=== PATIENT | female | born 1995 | race Caucasian/White ===

== ENCOUNTER 2024-02-23 14:57 | Emergency (ER) | payer OTHER ==
[2024-02-23 15:15] VITALS: TEMP 98.7
[2024-02-23] MEDS: ONDANSETRON 4 MG/2 ML VIAL IVP STA (16:20)
[2024-02-23] MEDS: PANTOPRAZOLE 40 MG/10 ML VIAL IVP STA (16:21)
[2024-02-23] MEDS: LORazepam 2 MG/ML INJ IV STA (16:21)
[2024-02-23] MEDS: SODIUM CHLORIDE 0.9% 1,000 ML IV STA (16:22)
[2024-02-23 16:28] LABS: Basophils # (A) 0.1 k/uL (0-0.2); Basophils % (A) 1 %; Eosinophils # (A) 0.1 k/uL (0-0.7); Eosinophils % (A) 2 %; Lymphocytes # (A) 1.9 k/uL (1.0-4.8); Lymphocytes % (A) 23 %; MCH 29.6 pg (25.0-35.0); MCHC 34.2 g/dL (31.0-37.0); MCV 86.5 fL (80.0-100.0); Mean Platelet Volume 7.2; Monocytes # (A) 0.4 k/uL (0-1.0); Monocytes % (A) 5 %; Neutrophils # (A) 5.6 k/uL (1.3-7.7); Neutrophils % (A) 68 %; Platelet Count 294 k/uL (150-450); RBC 4.74 m/uL (3.80-5.40); WBC 8.1 k/uL (3.8-10.6)
[2024-02-23 16:32] LABS: ALT 19 U/L (4-34); AST 22 U/L (14-36); African American GFR (CKD) >90 (>60 ml/min/1.73 sqM); Albumin 4.2 g/dL (3.5-5.0); Alkaline Phosphatase 61 U/L (38-126); Amylase 60 U/L (30-110); Anion Gap 7 mmol/L; Blood Urea Nitrogen 13 mg/dL (7-17); Calcium 9.2 mg/dL (8.4-10.2); Carbon Dioxide 26 mmol/L (22-30); Chloride 105 mmol/L (98-107); Glucose 98 mg/dL (74-99); Lipase 85 U/L (23-300); Non-African American GFR(CKD) >90 (>60 ml/min/1.73 sqM); Sodium 138 mmol/L (137-145); Total Bilirubin 0.5 mg/dL (0.2-1.3); Total Protein 7.1 g/dL (6.3-8.2)
[2024-02-23 16:43] LABS: INR 0.9 (<1.2); Partial Thromboplastin Time 25.9 sec (22.0-30.0); Prothrombin Time 10.1 sec (10.0-12.5)
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
--- NOTE | 2024-02-23 17:04 | US ---
EXAMINATION TYPE: US abd limited kidneys/bladder DATE OF EXAM: 02/23/2024 COMPARISON: NONE CLINICAL INDICATION: Female, 29 years old with history of abd discomfort, dysuria; abd pain ongoing f or 1 week TECHNIQUE: Grayscale and color Doppler imaging of the right upper quadrant including the kidneys and urinary bladder. FINDINGS: EXAM MEASUREMENTS: Liver Length: 16.4 cm Gallbladder Wall: 0.2 cm CBD: 0.5 cm Right Kidney: 9.3 x 3.9 x 3.6 cm Left Kidney: 8.5 x 3.8 x 4.4 cm Pancreas: portion seen appear wnl Liver: too much bowel gas subcostally, only intercostal imaging . Liver evaluation is limited Gallbladder: wnl CBD: wnl Right Kidney: wnl Left Kidney: limited views due to bowel gas Bladder: voided just prior to exam IMPRESSION: No acute ultrasound abnormalities identified. Examination however is limited due to bowel gas and fac tors discussed above. [facility], Workstation: [facility], 02/23/2024 5:01 PM
[2024-02-23 17:07] LABS: Appearance,Urine Clear (Clear); Bilirubin,Urine Negative (Negative); Blood,Urine Negative (Negative); Color,Urine Colorless; Glucose,Urine (UA) Negative (Negative); Ketones,Urine Negative (Negative); Leukocyte Esterase,Urine Negative (Negative); Nitrite,Urine Negative (Negative); PH, Urine 7.5 (5.0-8.0); Protein,Urine Negative (Negative); Specific Gravity,Urine 1.011 (1.001-1.035); Urobilinogen,Urine <2.0 mg/dL (<2.0)
[2024-02-23] MEDS: MORPHINE SULFATE 4 MG/ML SYRINGE IVP STA ×3 (17:23→20:05)
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
[2024-02-23 19:58] VITALS: BP 113/81; PULSE 98; RESP 17
[2024-02-23] MEDS: ONDANSETRON 4 MG ODT STARTER PACK 2 TAB BTL PO STA (20:33)
[2024-02-23] MEDS: ACET/COD 300 MG/30 MG STARTER PACK 6 TAB BTL PO STA (20:33)
== END 2024-02-23 20:40 | disposition home or self-care (01) ==
LOC: EC 14:57
CPT/HCPCS: 36415; 74177; 76705; 76770; 80053; 81003; 81025; 82150; 83690; 85025; 85610; 85730; 96361; 96374; 96375; 96376; 99284

== ENCOUNTER 2024-02-28 17:44 | Emergency (ER) | payer OTHER ==
[2024-02-28 17:48] VITALS: TEMP 98.1
[2024-02-28 19:09] LABS: Basophils % (A) 0 %; Eosinophils # (A) 0.3 k/uL (0-0.7); Eosinophils % (A) 3 %; HCT 38.6 % (34.0-46.0); HGB 13.8 gm/dL (11.4-16.0); Lymphocytes # (A) 2.2 k/uL (1.0-4.8); Lymphocytes % (A) 24 %; MCH 31.1 pg (25.0-35.0); MCHC 35.8 g/dL (31.0-37.0); Monocytes # (A) 0.5 k/uL (0-1.0); Monocytes % (A) 6 %; Neutrophils # (A) 5.9 k/uL (1.3-7.7); Neutrophils % (A) 65 %; Platelet Count 280 k/uL (150-450); RBC 4.44 m/uL (3.80-5.40); RDW 12.1 % (11.5-15.5); WBC 9.1 k/uL (3.8-10.6)
[2024-02-28 19:20] LABS: INR 0.9 (<1.2); Partial Thromboplastin Time 26.7 sec (22.0-30.0); Prothrombin Time 10.4 sec (10.0-12.5)
[2024-02-28] MEDS: SODIUM CHLORIDE 0.9% 1,000 ML IV ONE ×2 (19:23→22:54)
[2024-02-28] MEDS: ONDANSETRON 4 MG/2 ML VIAL IVP STA (19:27)
--- NOTE | 2024-02-28 19:36 | XR ---
EXAMINATION TYPE: XR chest 2V DATE OF EXAM: 02/28/2024 7:13 PM COMPARISON: None CLINICAL INDICATION: Female, 29 years old with history of difficulty breathing; [facility] TECHNIQUE: XR chest 2V Frontal and lateral views of the chest. FINDINGS: Lungs/Pleura: There is no evidence of pleural effusion, focal consolidation, or pneumothorax. Pulmonary vascularity: Unremarkable. Heart/mediastinum: Cardiomediastinal silhouette is unremarkable. Musculoskeletal: No acute osseous pathology. IMPRESSION: No acute cardiopulmonary disease/process. [facility], , 02/28/2024 7:34 PM
[2024-02-28 20:04] LABS: ALT 22 U/L (4-34); AST 22 U/L (14-36); African American GFR (CKD) >90 (>60 ml/min/1.73 sqM); Alkaline Phosphatase 55 U/L (38-126); Amylase 49 U/L (30-110); Anion Gap 8 mmol/L; Blood Urea Nitrogen 10 mg/dL (7-17); Calcium 9.4 mg/dL (8.4-10.2); Carbon Dioxide 27 mmol/L (22-30); Chloride 101 mmol/L (98-107); Glucose 90 mg/dL (74-99); Lipase 55 U/L (23-300); Magnesium 1.7 mg/dL (1.6-2.3); Non-African American GFR(CKD) >90 (>60 ml/min/1.73 sqM); Potassium 3.7 mmol/L (3.5-5.1); Sodium 136 mmol/L (137-145); Total Bilirubin 0.5 mg/dL (0.2-1.3); Total Protein 6.8 g/dL (6.3-8.2)
[2024-02-28] MEDS: HYDROmorphone 0.5 MG/0.5 ML SYRINGE IVP STA (20:31)
--- NOTE | 2024-02-28 20:37 | ED ---
General Adult HPI - General Chief complaint: Nausea/Vomiting/Diarrhea Stated complaint: Re-check Time Seen by Provider: 02/28/24 17:53 Source: patient, RN notes reviewed Mode of arrival: ambulatory Limitations: no limitations - History of Present Illness Initial comments: 29-year-old female presents to the emergency department for evaluation of abdominal pain and shortness of breath. Patient reports that she has been experiencing abdominal pain for around 2 years with nausea and decreased appetite. She states that this started after receiving the COVID vaccination multiple years ago. Patient was evaluated in the emergency department recently for the same complaint and underwent a CT of her abdomen revealing a small ileus. Patient was offered admission at that time but she declined. She states that her symptoms have not improved. Patient is now complaining of shortness of breath that has been going on for 2 days. She reports that it is worse when she is lying down. She denies chest pain. Denies recent fever, chills. - Related Data Home Medications Medication Instructions Recorded Confirmed Dextroamphetamine/Amphetamine 30 mg PO BID 02/23/24 02/23/24 [Adderall] clonazePAM [KlonoPIN] 1 mg PO BID PRN 02/23/24 02/23/24 Previous Rx's Medication Instructions Recorded HYDROcodone/APAP 5-325MG [[place] 5] 1 each PO Q6HR PRN #12 tab 02/28/24 Allergies Allergy/AdvReac Type Severity Reaction Status Date / Time pantoprazole [From Protonix] Allergy Rash/Hives Verified 02/28/24 17:49 trazodone Allergy Unknown Verified 02/28/24 17:48 Review of Systems ROS Statement: Those systems with pertinent positive or pertinent negative responses have been documented in the HPI. ROS Other: All systems not noted in ROS Statement are negative. Past Medical History History of Any Multi-Drug Resistant Organisms: Other MDRO Date of last positivie culture/infection: 2023 MDRO Source:: kidney- E. Coli Past Surgical History: Tubal Ligation Additional Past Surgical History / Comment(s): left shoulder surgery in 2018 Past Psychological History: ADD/ADHD, Anxiety Smoking Status: Vaper Past Alcohol Use History: None Reported Past Drug Use History: None Reported General Exam Limitations: no limitations General appearance: alert, in no apparent distress Head exam: Present: atraumatic, normocephalic, normal inspection Eye exam: Present: normal appearance, PERRL, EOMI. Absent: scleral icterus, conjunctival injection, periorbital swelling ENT exam: Present: normal exam, mucous membranes moist Neck exam: Present: normal inspection. Absent: tenderness, meningismus, lymphadenopathy Respiratory exam: Present: normal lung sounds bilaterally. Absent: respiratory distress, wheezes, rales, rhonchi, stridor Cardiovascular Exam: Present: regular rate, normal rhythm, normal heart sounds. Absent: systolic murmur, diastolic murmur, rubs, gallop, clicks GI/Abdominal exam: Present: soft, normal bowel sounds. Absent: distended, tenderness, guarding, rebound, rigid Extremities exam: Present: normal inspection, full ROM, normal capillary refill. Absent: tenderness, pedal edema, joint swelling, calf tenderness Back exam: Present: normal inspection Neurological exam: Present: alert, oriented X3 Psychiatric exam: Present: normal affect, normal mood Skin exam: Present: warm, dry, intact, normal color. Absent: rash Course Vital Signs 02/28/24 02/28/24 02/28/24 17:45 19:20 23:31 Temperature 98.1 F Pulse Rate 135 H 96 84 Respiratory 16 18 18 Rate Blood Pressure 123/82 119/88 114/73 O2 Sat by Pulse 100 100 100 Oximetry Medical Decision Making - Medical Decision Making Was pt. sent in by a medical professional or institution ([facility] Frances, [employer]/FI[employer]MAN, urgent care, hospital, or retirement...) When possible be specific @ -No Did you speak to anyone other than the patient for history (EMS, parent, family, police, friend...)? What history was obtained from this source @ -Patient's boyfriend provided family history Did you review nursing and triage notes (agree or disagree)? Why? @ -I reviewed and agree with nursing and triage notes Were old charts reviewed (outside hosp., previous admission, EMS record, old EKG, old radiological studies, urgent care reports/EKG's, retirement records)? Report findings @ -No old charts were reviewed Differential Diagnosis (chest pain, altered mental status, abdominal pain women, abdominal pain men, vaginal bleeding, weakness, fever, dyspnea, syncope, headache, dizziness, GI bleed, back pain, seizure, CVA, palpatations, mental health, musculoskeletal)? @ -Differential Dyspnea: Coronary syndrome, arrhythmia, tamponade, asthma, COPD, pulmonary embolism, pneumonia, pneumothorax, pulmonary effusion, anaphylaxis, diabetic ketoacidosis, flailed chest, pulmonary contusion, diaphragmatic rupture, anemia, neuromuscular, this is not meant to be an all-inclusive list. EKG interpreted by me (3pts min.). @ -EKG at 1904 shows sinus rhythm rate 99, MD 148, QRS 97, QT-QTc 330-387 X-rays interpreted by me (1pt min.). @ -Chest x-ray shows no acute process KUB shows nonspecific bowel gas pattern CT interpreted by me (1pt min.). @ -None done U/S interpreted by me (1pt. min.). @ -None done What testing was considered but not performed or refused? (CT, X-rays, U/S, labs)? Why? @ -None What meds were considered but not given or refused? Why? @ -None Did you discuss the management of the patient with other professionals (professionals i.e. , PA, [employer] ENG[employer] FIRER/FIREMAN, lab, RT, psych nurse, rn social work, call center specialist, teacher, botanical technical officer, welfare case worker)? Give summary @ -No Was smoking cessation discussed for >3mins.? @ -No Was critical care preformed (if so, how long)? @ -No Were there social determinants of health that impacted care today? How? (Homelessness, low income, unemployed, alcoholism, drug addiction, transportation, low edu. Level, literacy, decrease access to med. care, senior living, rehab)? @ -No Was there de-escalation of care discussed even if they declined (Discuss DNR or withdrawal of care, Hospice)? DNR status @ -No What co-morbidities impacted this encounter? (DM, HTN, Smoking, COPD, CAD, Cancer, CVA, ARF, Chemo, Hep., AIDS, mental health diagnosis, sleep apnea, morbid obesity)? @ -None Was patient admitted / discharged? Hospital course, mention meds given and route, prescriptions, significant lab abnormalities, going to OR and other pertinent info. @ -Discharged. Patient presented to the emergency department for evaluation of abdominal pain and shortness of breath. Patient underwent laboratory studies revealingNo significant leukocytosis, hemoglobin stable, normal coagulation studies, negative D-dimer negative troponin; UA shows no evidence of infectious process, negative urine hCG urine drug screen positive for opiates and amphetamines. Patient was provided IV fluids in the emergency department along with analgesia and antiemetics. Patient reports improvement in her symptoms. Patient will be discharged home. Advised to follow-up with a local primary care provider as she is new to the area she was provided with a list. Patient understanding agreeable with plan. Patient stable at time of discharge. Case discussed with Dr. Caro Undiagnosed new problem with uncertain prognosis? @ -No Drug Therapy requiring intensive monitoring for toxicity (Heparin, Nitro, Insulin, Cardizem)? @ -No Were any procedures done? @ -No Diagnosis/symptom? @ -Abdominal pain Acute, or Chronic, or Acute on Chronic? @ -chronic Uncomplicated (without systemic symptoms) or Complicated (systemic symptoms)? @ -uncomplicated Side effects of treatment? @ -No Exacerbation, Progression, or Severe Exacerbation? @ -No Poses a threat to life or bodily function? How? (Chest pain, USA, DE, pneumonia, PE, COPD, DKA, ARF, appy, cholecystitis, CVA, Diverticulitis, Homicidal, Suicidal, threat to staff... and all critical care pts) @ -No - Lab Data Result diagrams: 02/28/24 19:02 02/28/24 19:02 Lab Results 02/28/24 02/28/24 02/28/24 Range/Units 19:02 19:02 19:02 WBC 9.1 (3.8-10.6) k/uL RBC 4.44 (3.80-5.40) m/uL Hgb 13.8 (11.4-16.0) gm/dL Hct 38.6 (34.0-46.0) % MCV 87.0 (80.0-100.0) fL MCH 31.1 (25.0-35.0) pg MCHC 35.8 (31.0-37.0) g/dL RDW 12.1 (11.5-15.5) % Plt Count 280 (150-450) k/uL MPV 7.0 Neutrophils % 65 % Lymphocytes % 24 % Monocytes % 6 % Eosinophils % 3 % Basophils % 0 % Neutrophils # 5.9 (1.3-7.7) k/uL Lymphocytes # 2.2 (1.0-4.8) k/uL Monocytes # 0.5 (0-1.0) k/uL Eosinophils # 0.3 (0-0.7) k/uL Basophils # 0.0 (0-0.2) k/uL PT 10.4 (10.0-12.5) sec INR 0.9 (<1.2) APTT 26.7 (22.0-30.0) sec D-Dimer (<0.60) mg/L FEU Sodium 136 L (137-145) mmol/L Potassium 3.7 (3.5-5.1) mmol/L Chloride 101 (98-107) mmol/L Carbon Dioxide 27 (22-30) mmol/L Anion Gap 8 mmol/L BUN 10 (7-17) mg/dL Creatinine 0.78 (0.52-1.04) mg/dL Est GFR (CKD-EPI)AfAm >90 (>60 ml/min/1.73 sqM) Est GFR (CKD-EPI)NonAf >90 (>60 ml/min/1.73 sqM) Glucose 90 (74-99) mg/dL Plasma Lactic Acid Uri (0.7-2.0) mmol/L Calcium 9.4 (8.4-10.2) mg/dL Magnesium 1.7 (1.6-2.3) mg/dL Total Bilirubin 0.5 (0.2-1.3) mg/dL AST 22 (14-36) U/L ALT 22 (4-34) U/L Alkaline Phosphatase 55 (38-126) U/L Troponin I (0.000-0.034) ng/mL Total Protein 6.8 (6.3-8.2) g/dL Albumin 4.0 (3.5-5.0) g/dL Amylase 49 (30-110) U/L Lipase 55 (23-300) U/L Urine Color Urine Appearance (Clear) Urine pH (5.0-8.0) Ur Specific Wilson (1.001-1.035) Urine Protein (Negative) Urine Glucose (UA) (Negative) Urine Ketones (Negative) Urine Blood (Negative) Urine Nitrite (Negative) Urine Bilirubin (Negative) Urine Urobilinogen (<2.0) mg/dL Ur Leukocyte Esterase (Negative) Urine RBC (0-5) /hpf Urine WBC (0-5) /hpf Ur Squamous Epith Cells (0-4) /hpf Amorphous Sediment (None) /hpf Urine Bacteria (None) /hpf Urine Mucus (None) /hpf Urine Yeast (Budding) (None) /hpf Urine HCG, Qual (Not Detectd) Urine Opiates Screen (NotDetected) Ur Oxycodone Screen (NotDetected) Urine Methadone Screen (NotDetected) Ur Barbiturates Screen (NotDetected) U Tricyclic Antidepress (NotDetected) Ur Phencyclidine Scrn (NotDetected) Ur Amphetamines Screen (NotDetected) U Methamphetamines Scrn (NotDetected) U Benzodiazepines Scrn (NotDetected) Urine Cocaine Screen (NotDetected) U Marijuana (THC) Screen (NotDetected) 02/28/24 02/28/24 02/28/24 Range/Units 19:02 19:02 20:37 WBC (3.8-10.6) k/uL RBC (3.80-5.40) m/uL Hgb (11.4-16.0) gm/dL Hct (34.0-46.0) % MCV (80.0-100.0) fL MCH (25.0-35.0) pg MCHC (31.0-37.0) g/dL RDW (11.5-15.5) % Plt Count (150-450) k/uL MPV Neutrophils % % Lymphocytes % % Monocytes % % Eosinophils % % Basophils % % Neutrophils # (1.3-7.7) k/uL Lymphocytes # (1.0-4.8) k/uL Monocytes # (0-1.0) k/uL Eosinophils # (0-0.7) k/uL Basophils # (0-0.2) k/uL PT (10.0-12.5) sec INR (<1.2) APTT (22.0-30.0) sec D-Dimer (<0.60) mg/L FEU Sodium (137-145) mmol/L Potassium (3.5-5.1) mmol/L Chloride (98-107) mmol/L Carbon Dioxide (22-30) mmol/L Anion Gap mmol/L BUN (7-17) mg/dL Creatinine (0.52-1.04) mg/dL Est GFR (CKD-EPI)AfAm (>60 ml/min/1.73 sqM) Est GFR (CKD-EPI)NonAf (>60 ml/min/1.73 sqM) Glucose (74-99) mg/dL Plasma Lactic Acid Uri 1.0 (0.7-2.0) mmol/L Calcium (8.4-10.2) mg/dL Magnesium (1.6-2.3) mg/dL Total Bilirubin (0.2-1.3) mg/dL AST (14-36) U/L ALT (4-34) U/L Alkaline Phosphatase (38-126) U/L Troponin I <0.012 (0.000-0.034) ng/mL Total Protein (6.3-8.2) g/dL Albumin (3.5-5.0) g/dL Amylase (30-110) U/L Lipase (23-300) U/L Urine Color Colorless Urine Appearance Turbid H (Clear) Urine pH 7.0 (5.0-8.0) Ur Specific Wilson 1.010 (1.001-1.035) Urine Protein Negative (Negative) Urine Glucose (UA) Negative (Negative) Urine Ketones Negative (Negative) Urine Blood Negative (Negative) Urine Nitrite Negative (Negative) Urine Bilirubin Negative (Negative) Urine Urobilinogen <2.0 (<2.0) mg/dL Ur Leukocyte Esterase Negative (Negative) Urine RBC 1 (0-5) /hpf Urine WBC <1 (0-5) /hpf Ur Squamous Epith Cells 1 (0-4) /hpf Amorphous Sediment Rare H (None) /hpf Urine Bacteria Rare H (None) /hpf Urine Mucus Rare H (None) /hpf Urine Yeast (Budding) Many H (None) /hpf Urine HCG, Qual (Not Detectd) Urine Opiates Screen (NotDetected) Ur Oxycodone Screen (NotDetected) Urine Methadone Screen (NotDetected) Ur Barbiturates Screen (NotDetected) U Tricyclic Antidepress (NotDetected) Ur Phencyclidine Scrn (NotDetected) Ur Amphetamines Screen (NotDetected) U Methamphetamines Scrn (NotDetected) U Benzodiazepines Scrn (NotDetected) Urine Cocaine Screen (NotDetected) U Marijuana (THC) Screen (NotDetected) 02/28/24 02/28/2424 Range/Units 20:37 20:37 20:42 WBC (3.8-10.6) k/uL RBC (3.80-5.40) m/uL Hgb (11.4-16.0) gm/dL Hct (34.0-46.0) % MCV (80.0-100.0) fL MCH (25.0-35.0) pg MCHC (31.0-37.0) g/dL RDW (11.5-15.5) % Plt Count (150-450) k/uL MPV Neutrophils % % Lymphocytes % % Monocytes % % Eosinophils % % Basophils % % Neutrophils # (1.3-7.7) k/uL Lymphocytes # (1.0-4.8) k/uL Monocytes # (0-1.0) k/uL Eosinophils # (0-0.7) k/uL Basophils # (0-0.2) k/uL PT (10.0-12.5) sec INR (<1.2) APTT (22.0-30.0) sec D-Dimer <0.17 (<0.60) mg/L FEU Sodium (137-145) mmol/L Potassium (3.5-5.1) mmol/L Chloride (98-107) mmol/L Carbon Dioxide (22-30) mmol/L Anion Gap mmol/L BUN (7-17) mg/dL Creatinine (0.52-1.04) mg/dL Est GFR (CKD-EPI)AfAm (>60 ml/min/1.73 sqM) Est GFR (CKD-EPI)NonAf (>60 ml/min/1.73 sqM) Glucose (74-99) mg/dL Plasma Lactic Acid Uri (0.7-2.0) mmol/L Calcium (8.4-10.2) mg/dL Magnesium (1.6-2.3) mg/dL Total Bilirubin (0.2-1.3) mg/dL AST (14-36) U/L ALT (4-34) U/L Alkaline Phosphatase (38-126) U/L Troponin I (0.000-0.034) ng/mL Total Protein (6.3-8.2) g/dL Albumin (3.5-5.0) g/dL Amylase (30-110) U/L Lipase (23-300) U/L Urine Color Urine Appearance (Clear) Urine pH (5.0-8.0) Ur Specific Wilson (1.001-1.035) Urine Protein (Negative) Urine Glucose (UA) (Negative) Urine Ketones (Negative) Urine Blood (Negative) Urine Nitrite (Negative) Urine Bilirubin (Negative) Urine Urobilinogen (<2.0) mg/dL Ur Leukocyte Esterase (Negative) Urine RBC (0-5) /hpf Urine WBC (0-5) /hpf Ur Squamous Epith Cells (0-4) /hpf Amorphous Sediment (None) /hpf Urine Bacteria (None) /hpf Urine Mucus (None) /hpf Urine Yeast (Budding) (None) /hpf Urine HCG, Qual Not Detected (Not Detectd) Urine Opiates Screen Detected H (NotDetected) Ur Oxycodone Screen Not Detected (NotDetected) Urine Methadone Screen Not Detected (NotDetected) Ur Barbiturates Screen Not Detected (NotDetected) U Tricyclic Antidepress Not Detected (NotDetected) Ur Phencyclidine Scrn Not Detected (NotDetected) Ur Amphetamines Screen Detected H (NotDetected) U Methamphetamines Scrn Not Detected (NotDetected) U Benzodiazepines Scrn Not Detected (NotDetected) Urine Cocaine Screen Not Detected (NotDetected) U Marijuana (THC) Screen Not Detected (NotDetected) Disposition Clinical Impression: Abdominal pain of unknown etiology Disposition: HOME SELF-CARE Condition: Stable Additional Instructions: Please follow-up with an area primary care provider. Return to the emergency department for new or worsening symptoms. Prescriptions: HYDROcodone/APAP 5-325MG [[place] 5] 1 each PO Q6HR PRN #12 tab PRN Reason: Pain Is patient prescribed a controlled substance at d/c from ED?: Yes When asked, does pt state using other controlled substances?: No If prescribed controlled substance>3 days was MAPS reviewed?: Prescribed <3 Days Referrals: None,Stated [Primary Care Provider] - 1-2 days
[2024-02-28 20:48] VITALS: RESP 18
[2024-02-28 21:22] LABS: Amorphous Sediment,Urine Rare /hpf; Appearance,Urine Turbid (Clear); Bacteria,Urine Rare /hpf; Bilirubin,Urine Negative (Negative); Blood,Urine Negative (Negative); Budding Yeast,Urine Many /hpf; Color,Urine Colorless; Glucose,Urine (UA) Negative (Negative); Ketones,Urine Negative (Negative); Leukocyte Esterase,Urine Negative (Negative); Mucus,Urine Rare /hpf; Nitrite,Urine Negative (Negative); Protein,Urine Negative (Negative); RBC,Urine 1 /hpf (0-5); Squamous Epithelial Cell,Urine 1 /hpf (0-4); Urobilinogen,Urine <2.0 mg/dL (<2.0); WBC,Urine <1 /hpf (0-5)
[2024-02-28 21:26] LABS: Amphetamine Screen,Urine Detected (NotDetected); Barbiturate Screen,Urine Not Detected (NotDetected); Benzodiazepines Screen,Urine Not Detected (NotDetected); Cocaine Screen,Urine Not Detected (NotDetected); Methadone Screen, Urine Not Detected (NotDetected); Opiate Screen,Urine Detected (NotDetected); Oxycodone Screen, Urine Not Detected (NotDetected); Phencyclidine Screen,Urine Not Detected (NotDetected); Tricyclic Antidepressant,Urine Not Detected (NotDetected); Urn Cannabinoid Scrn Not Detected (NotDetected)
--- NOTE | 2024-02-28 21:58 | XR ---
EXAMINATION TYPE: XR KUB DATE OF EXAM: 02/28/2024 9:47 PM COMPARISON: CLINICAL INDICATION: Female, 29 years old with history of pain; [facility] TECHNIQUE: One radiographic view of the abdomen was obtained. FINDINGS: The bowel gas pattern is nonspecific without dilated loops of small or large bowel. . Fecal material and gas are demonstrated throughout the colon and rectum. There is no evidence for organomegaly or pneumoperitoneum. The osseous structures are intact. No ab normal calcifications are present. IMPRESSION: Nonspecific bowel gas pattern without radiographic evidence for acute process. [facility], , 02/28/2024 9:56 PM
[2024-02-28] MEDS: HYDROmorphone 1 MG/ML 1 ML SYRINGE IVP STA (22:54)
[2024-02-28 23:32] VITALS: BP 114/73; PULSE 84
== END 2024-02-28 23:32 | disposition home or self-care (01) ==
LOC: EC 17:44
DX: R10.9 Unspecified abdominal pain (principal); F17.290 Nicotine dependence, other tobacco product, uncomplicated; Z88.8 Allergy status to other drugs, medicaments and biological substances
CPT/HCPCS: 36415; 93005; 85379; 80053; 82150; 83605; 83690; 83735; 84484; 85025; 85610; 85730; 81001; 81025; 80306; 71046; 74018; 99285; 96374; 96375; 96376; 96361; J2405; J1171 ×2; 99284

== ENCOUNTER 2024-03-06 07:24 | Emergency (ER) | payer OTHER ==
[2024-03-06 07:59] VITALS: RESP 20; TEMP 98.5
--- NOTE | 2024-03-06 08:23 | ED ---
General Adult HPI - General Chief complaint: Recheck/Abnormal Lab/Rx Stated complaint: chest pain Time Seen by Provider: 03/06/24 08:22 Source: patient, RN notes reviewed Mode of arrival: ambulatory Limitations: no limitations - History of Present Illness Initial comments: 29-year-old female presenting to the ER with a chief complaint of abdominal pain. Patient recently moved here from [place] as she is disabled and needed more family support. She is currently living with a family friend. She is diagnosed with autonomic dysfunction. She states for the past 2 years she has been having a continuous left sided abdominal pain. She states for the past 4 weeks she has been having difficulty eating as it increases pain. This is caused her to have a decreased appetite. She is able to keep food down. She does state the pain makes her feel nauseous. She denies vomiting. She states she has diarrhea and bright red blood in her stool. No melena. No known fevers. Patient seen here recently for similar complaint patient was offered admission due to possible ileus patient refused. Patient has not yet followed up outpatient. She has been taking [place] for pain last dose yesterday. Patient is also complaining of a pressure chest discomfort. She states the pain makes it difficult for her to breathe. She radiation to her left upper extremity. No cardiac history. No history of blood clots. No blood thinner medication. Patient denies any other complaints. - Related Data Home Medications Medication Instructions Recorded Confirmed Dextroamphetamine/Amphetamine 30 mg PO BID 02/23/24 03/06/24 [Adderall] clonazePAM [KlonoPIN] 1 mg PO BID PRN 02/23/24 03/06/24 Fludrocortisone [Florinef] 0.1 mg PO DAILY 03/06/24 03/06/24 Gabapentin 600 mg PO BID 03/06/24 03/06/24 HYDROcodone/APAP 5-325MG [[place] 5] 1 tab PO Q6HR PRN 03/06/24 03/06/24 Levonorgestrel/Ethinyl Estradiol 1 tab PO DAILY 03/06/24 03/06/24 0.15mg-30mcg Ziprasidone [Geodon] 40 mg PO BID 03/06/24 03/06/24 lamoTRIgine 150 mg PO HS 03/06/24 03/06/24 Allergies Allergy/AdvReac Type Severity Reaction Status Date / Time pantoprazole [From Protonix] Allergy Rash/Hives Verified 03/06/24 11:01 trazodone Allergy Rash/Hives Verified 03/06/24 11:01 Review of Systems ROS Statement: Those systems with pertinent positive or pertinent negative responses have been documented in the HPI. ROS Other: All systems not noted in ROS Statement are negative. Past Medical History Past Medical History: Rheumatoid Arthritis (RA) Additional Past Medical History / Comment(s): Autonomic dysfunction. Lopez, History of Any Multi-Drug Resistant Organisms: Other MDRO Date of last positivie culture/infection: 2023 MDRO Source:: kidney- E. Coli Past Surgical History: Tubal Ligation Additional Past Surgical History / Comment(s): left shoulder surgery in 2018 Past Psychological History: ADD/ADHD, Anxiety, Bipolar Smoking Status: Vaper Past Alcohol Use History: None Reported Past Drug Use History: None Reported General Exam Limitations: no limitations General appearance: alert, in no apparent distress Respiratory exam: Present: normal lung sounds bilaterally. Absent: respiratory distress, wheezes, rales, rhonchi, stridor Cardiovascular Exam: Present: regular rate, normal rhythm, normal heart sounds. Absent: systolic murmur, diastolic murmur, rubs, gallop, clicks GI/Abdominal exam: Present: soft, tenderness (generalized), normal bowel sounds. Absent: distended, guarding, rebound, rigid Neurological exam: Present: alert, oriented X3, CN II-XII intact Skin exam: Present: warm, dry, intact, normal color. Absent: rash Course Vital Signs 03/06/24 03/06/24 03/06/24 07:56 08:21 10:00 Temperature 98.5 F Pulse Rate 122 H 120 H 105 H Respiratory 20 20 20 Rate Blood Pressure 113/81 121/86 112/75 O2 Sat by Pulse 99 100 98 Oximetry 03/06/24 03/06/24 11:00 12:23 Temperature Pulse Rate 105 H 90 Respiratory 20 20 Rate Blood Pressure 107/71 130/60 O2 Sat by Pulse 98 98 Oximetry - Reevaluation(s) Reevaluation #1: 03/06/24 10:08 Patient reevaluated. No signs of acute distress. Vital stable. Patient up dated on laboratory results Medical Decision Making - Medical Decision Making Was pt. sent in by a medical professional or institution (Dr., PA, HEAD OF MARKETING, urgent care, hospital, or [facility]...) When possible be specific @ -No Did you speak to anyone other than the patient for history (EMS, parent, family, police, friend...)? What history was obtained from this source @ -No Did you review nursing and triage notes (agree or disagree)? Why? @ -I reviewed and agree with nursing and triage notes Were old charts reviewed (outside hosp., previous admission, EMS record, old EKG, old radiological studies, urgent care reports/EKG's, [facility] records)? Report findings @ -Yes, I reviewed ER note, laboratory studies and imaging from 02-23-24 and 02-28-24. Patient seen for similar complaint workup obtained and negative. Differential Diagnosis (chest pain, altered mental status, abdominal pain women, abdominal pain men, vaginal bleeding, weakness, fever, dyspnea, syncope, headache, dizziness, GI bleed, back pain, seizure, CVA, palpatations, mental health, musculoskeletal)? @ -Differential Abdominal Pain Women:Appendicitis, Cholecystitis, diverticulosis, ischemic bowel, pancreatitis, hepatitis, UTI, gastroenteritis, AAA, incarcerated hernia, bowel obstruction, constipation, inflammatory bowel, hepatitis, peptic ulcer disease, splenic infarction, perforated viscus, vulvitis, ovarian torsion, PID, kidney stone, placenta abruption, this is not meant to be an all-inclusive list EKG interpreted by me (3pts min.). @ -As above X-rays interpreted by me (1pt min.). @ -None done CT interpreted by me (1pt min.). @ -CT abdomen pelvis showing a small amount of free fluid in the cul-de-sac and pelvis. No other significant abnormality. U/S interpreted by me (1pt. min.). @ -None done What testing was considered but not performed or refused? (CT, X-rays, U/S, labs)? Why? @ -None What meds were considered but not given or refused? Why? @ -None Did you discuss the management of the patient with other professionals (professionals i.e. NIKKI Frances, HEAD OF MARKETING, lab, RT, psych nurse, delinquency prevention social worker, hospital admissions officer, teacher, correctional officer lieutenant, oil field caser)? Give summary @ -No Was smoking cessation discussed for >3mins.? @ -No Was critical care preformed (if so, how long)? @ -No Were there social determinants of health that impacted care today? How? (Homelessness, low income, unemployed, alcoholism, drug addiction, transportation, low edu. Level, literacy, decrease access to med. care, long term, rehab)? @ -Patient recently moved here from [place] and has not established primary care. Was there de-escalation of care discussed even if they declined (Discuss DNR or withdrawal of care, Hospice)? DNR status @ -No What co-morbidities impacted this encounter? (DM, HTN, Smoking, COPD, CAD, Cancer, CVA, ARF, Chemo, Hep., AIDS, mental health diagnosis, sleep apnea, morbid obesity)? @ -Autonomic dysfunction, chronic abdominal pain Was patient admitted / discharged? Hospital course, mention meds given and route, prescriptions, significant lab abnormalities, going to OR and other pertinent info. @ -Discharge. 29-year-old female presenting to the ER with a chief complaint of abdominal pain x 2 years and chest discomfort. History and physical exam completed. Patient is tachycardic at 122 upon arrival which is likely due to anxiety and pain. Vitals otherwise stable. Patient in no signs of acute distress but is very anxious on exam. Exam remarkable for generalized abdominal tenderness with normal bowel sounds. No rebound or guarding. Laboratory studies obtained unremarkable. D-dimer 0.37, troponin undetectable. Urinalysis unremarkable. Due to patient complaining of continued pain CT abdomen pelvis was considered. Risk-benefit ratio of radiation discussed with patient as she had recent CT scan at 1029-24. Patient is agreeable for repeat scan. CT abdomen pelvis showing a small amount of free fluid in the cul-de-sac and pelvis. No other significant abnormality. Patient received symptomatic treatment in the ER, with mild improvement. Upon reevaluation, patient sitting up on stretcher listening to music on phone no signs of acute distress. Results discussed with patient, all questions answered. Patient stable for discharge at this time. Advised close follow-up with GI and general surgery for further ev aluation. I strongly encourage patient to establish care with PCP. Referrals given. Strict return parameters discussed. Patient discharged in stable condition with follow-up to PCP. Patient verbally expressed understanding and agreement with care plan. Case discussed with ED attending, Dr. Conn. Undiagnosed new problem with uncertain prognosis? @ -No Drug Therapy requiring intensive monitoring for toxicity (Heparin, Nitro, Insulin, Cardizem)? @ -No Were any procedures done? @ -No Diagnosis/symptom? @ -Abdominal pain Acute, or Chronic, or Acute on Chronic? @ -Acute Uncomplicated (without systemic symptoms) or Complicated (systemic symptoms)? @ -Uncomplicated Side effects of treatment? @ -No Exacerbation, Progression, or Severe Exacerbation? @ -No Poses a threat to life or bodily function? How? (Chest pain, [place], MA, pneumonia, PE, COPD, DKA, ARF, appy, cholecystitis, CVA, Diverticulitis, Homicidal, Suicidal, threat to staff... and all critical care pts) @ -No - Lab Data Result diagrams: 03/06/24 08:21 03/06/24 08:21 Lab Results 03/06/24 03/06/24 03/06/24 Range/Units 08:20 08:21 08:21 WBC 9.1 (3.8-10.6) k/uL RBC 4.50 (3.80-5.40) m/uL Hgb 13.3 (11.4-16.0) gm/dL Hct 39.8 (34.0-46.0) % MCV 88.4 (80.0-100.0) fL MCH 29.5 (25.0-35.0) pg MCHC 33.4 (31.0-37.0) g/dL RDW 12.4 (11.5-15.5) % Plt Count 304 (150-450) k/uL MPV 7.5 Neutrophils % 64 % Lymphocytes % 26 % Monocytes % 5 % Eosinophils % 4 % Basophils % 1 % Neutrophils # 5.8 (1.3-7.7) k/uL Lymphocytes # 2.3 (1.0-4.8) k/uL Monocytes # 0.5 (0-1.0) k/uL Eosinophils # 0.3 (0-0.7) k/uL Basophils # 0.1 (0-0.2) k/uL PT (10.0-12.5) sec INR (<1.2) APTT (22.0-30.0) sec D-Dimer (<0.60) mg/L FEU Sodium 137 (137-145) mmol/L Potassium 4.4 (3.5-5.1) mmol/L Chloride 104 (98-107) mmol/L Carbon Dioxide 25 (22-30) mmol/L Anion Gap 8 mmol/L BUN 17 (7-17) mg/dL Creatinine 0.99 (0.52-1.04) mg/dL Est GFR (CKD-EPI)AfAm 89 (>60 ml/min/1.73 sqM) Est GFR (CKD-EPI)NonAf 77 (>60 ml/min/1.73 sqM) Glucose 89 (74-99) mg/dL Plasma Lactic Acid Uri (0.7-2.0) mmol/L Calcium 9.3 (8.4-10.2) mg/dL Total Bilirubin 0.4 (0.2-1.3) mg/dL AST 23 (14-36) U/L ALT 21 (4-34) U/L Alkaline Phosphatase 48 (38-126) U/L Troponin I (0.000-0.034) ng/mL Total Protein 7.3 (6.3-8.2) g/dL Albumin 4.4 (3.5-5.0) g/dL Amylase 60 (30-110) U/L Lipase 102 (23-300) U/L HCG, Qual Not Detected Urine Color Urine Appearance (Clear) Urine pH (5.0-8.0) Ur Specific [place] (1.001-1.035) Urine Protein (Negative) Urine Glucose (UA) (Negative) Urine Ketones (Negative) Urine Blood (Negative) Urine Nitrite (Negative) Urine Bilirubin (Negative) Urine Urobilinogen (<2.0) mg/dL Ur Leukocyte Esterase (Negative) 03/06/24 03/06/24 03/06/24 Range/Units 08:21 08:21 08:21 WBC (3.8-10.6) k/uL RBC (3.80-5.40) m/uL Hgb (11.4-16.0) gm/dL Hct (34.0-46.0) % MCV (80.0-100.0) fL MCH (25.0-35.0) pg MCHC (31.0-37.0) g/dL RDW (11.5-15.5) % Plt Count (150-450) k/uL MPV Neutrophils % % Lymphocytes % % Monocytes % % Eosinophils % % Basophils % % Neutrophils # (1.3-7.7) k/uL Lymphocytes # (1.0-4.8) k/uL Monocytes # (0-1.0) k/uL Eosinophils # (0-0.7) k/uL Basophils # (0-0.2) k/uL PT 10.1 (10.0-12.5) sec INR 0.9 (<1.2) APTT 26.6 (22.0-30.0) sec D-Dimer 0.37 (<0.60) mg/L FEU Sodium (137-145) mmol/L Potassium (3.5-5.1) mmol/L Chloride (98-107) mmol/L Carbon Dioxide (22-30) mmol/L Anion Gap mmol/L BUN (7-17) mg/dL Creatinine (0.52-1.04) mg/dL Est GFR (CKD-EPI)AfAm (>60 ml/min/1.73 sqM) Est GFR (CKD-EPI)NonAf (>60 ml/min/1.73 sqM) Glucose (74-99) mg/dL Plasma Lactic Acid Uri 0.9 (0.7-2.0) mmol/L Calcium (8.4-10.2) mg/dL Total Bilirubin (0.2-1.3) mg/dL AST (14-36) U/L ALT (4-34) U/L Alkaline Phosphatase (38-126) U/L Troponin I <0.012 (0.000-0.034) ng/mL Total Protein (6.3-8.2) g/dL Albumin (3.5-5.0) g/dL Amylase (30-110) U/L Lipase (23-300) U/L HCG, Qual Urine Color Urine Appearance (Clear) Urine pH (5.0-8.0) Ur Specific [place] (1.001-1.035) Urine Protein (Negative) Urine Glucose (UA) (Negative) Urine Ketones (Negative) Urine Blood (Negative) Urine Nitrite (Negative) Urine Bilirubin (Negative) Urine Urobilinogen (<2.0) mg/dL Ur Leukocyte Esterase (Negative) 03/06/24 Range/Units 10:50 WBC (3.8-10.6) k/uL RBC (3.80-5.40) m/uL Hgb (11.4-16.0) gm/dL Hct (34.0-46.0) % MCV (80.0-100.0) fL MCH (25.0-35.0) pg MCHC (31.0-37.0) g/dL RDW (11.5-15.5) % Plt Count (150-450) k/uL MPV Neutrophils % % Lymphocytes % % Monocytes % % Eosinophils % % Basophils % % Neutrophils # (1.3-7.7) k/uL Lymphocytes # (1.0-4.8) k/uL Monocytes # (0-1.0) k/uL Eosinophils # (0-0.7) k/uL Basophils # (0-0.2) k/uL PT (10.0-12.5) sec INR (<1.2) APTT (22.0-30.0) sec D-Dimer (<0.60) mg/L FEU Sodium (137-145) mmol/L Potassium (3.5-5.1) mmol/L Chloride (98-107) mmol/L Carbon Dioxide (22-30) mmol/L Anion Gap mmol/L BUN (7-17) mg/dL Creatinine (0.52-1.04) mg/dL Est GFR (CKD-EPI)AfAm (>60 ml/min/1.73 sqM) Est GFR (CKD-EPI)NonAf (>60 ml/min/1.73 sqM) Glucose (74-99) mg/dL Plasma Lactic Acid Uri (0.7-2.0) mmol/L Calcium (8.4-10.2) mg/dL Total Bilirubin (0.2-1.3) mg/dL AST (14-36) U/L ALT (4-34) U/L Alkaline Phosphatase (38-126) U/L Troponin I (0.000-0.034) ng/mL Total Protein (6.3-8.2) g/dL Albumin (3.5-5.0) g/dL Amylase (30-110) U/L Lipase (23-300) U/L HCG, Qual Urine Color Colorless Urine Appearance Clear (Clear) Urine pH 6.5 (5.0-8.0) Ur Specific [place] 1.020 (1.001-1.035) Urine Protein Negative (Negative) Urine Glucose (UA) Negative (Negative) Urine Ketones Negative (Negative) Urine Blood Negative (Negative) Urine Nitrite Negative (Negative) Urine Bilirubin Negative (Negative) Urine Urobilinogen <2.0 (<2.0) mg/dL Ur Leukocyte Esterase Negative (Negative) - EKG Data -: EKG Interpreted by Me EKG Comments: EKG taken at 8: 31 showing a sinus tachycardia. Inverted T waves in lead III. Ventricular rate 140, QRS duration 88, QT/QTc 278/360. - Radiology Data Radiology results: report reviewed, image reviewed Disposition Clinical Impression: Chronic abdominal pain Disposition: HOME SELF-CARE Condition: Stable Instructions (If sedation given, give patient instructions): Abdominal Pain (ED) Additional Instructions: Follow-up with basketball scout and general surgery. I highly recommend you follow-up with PCP as well. Is patient prescribed a controlled substance at d/c from ED?: No Referrals: None,Stated [Primary Care Provider] - 1-2 days Nohemi Killian MD [STAFF PHYSICIAN] - 1-2 days Lan Negrete DO [Doctor of Osteopathic Medicine] - 1-2 days Forms: Area PCPs Time of Disposition: 11:47
[2024-03-06] MEDS: KETOROLAC 15 MG/ML 1 ML VIAL IVP STA (09:00)
[2024-03-06] MEDS: SODIUM CHLORIDE 0.9% 1,000 ML IV STA (09:00)
[2024-03-06] MEDS: ONDANSETRON 4 MG/2 ML VIAL IVP STA (09:01)
[2024-03-06] MEDS: LORazepam 2 MG/ML INJ IV STA (09:01)
[2024-03-06 09:24] LABS: Basophils # (A) 0.1 k/uL (0-0.2); Basophils % (A) 1 %; Eosinophils # (A) 0.3 k/uL (0-0.7); Eosinophils % (A) 4 %; HCT 39.8 % (34.0-46.0); HGB 13.3 gm/dL (11.4-16.0); Lymphocytes # (A) 2.3 k/uL (1.0-4.8); Lymphocytes % (A) 26 %; MCH 29.5 pg (25.0-35.0); MCHC 33.4 g/dL (31.0-37.0); MCV 88.4 fL (80.0-100.0); Mean Platelet Volume 7.5; Monocytes # (A) 0.5 k/uL (0-1.0); Monocytes % (A) 5 %; Neutrophils # (A) 5.8 k/uL (1.3-7.7); Neutrophils % (A) 64 %; Platelet Count 304 k/uL (150-450); RDW 12.4 % (11.5-15.5); WBC 9.1 k/uL (3.8-10.6)
[2024-03-06 09:27] LABS: ALT 21 U/L (4-34); AST 23 U/L (14-36); African American GFR (CKD) 89 (>60 ml/min/1.73 sqM); Albumin 4.4 g/dL (3.5-5.0); Alkaline Phosphatase 48 U/L (38-126); Amylase 60 U/L (30-110); Anion Gap 8 mmol/L; Blood Urea Nitrogen 17 mg/dL (7-17); Calcium 9.3 mg/dL (8.4-10.2); Carbon Dioxide 25 mmol/L (22-30); Chloride 104 mmol/L (98-107); Glucose 89 mg/dL (74-99); Lipase 102 U/L (23-300); Non-African American GFR(CKD) 77 (>60 ml/min/1.73 sqM); Potassium 4.4 mmol/L (3.5-5.1); Sodium 137 mmol/L (137-145); Total Bilirubin 0.4 mg/dL (0.2-1.3); Total Protein 7.3 g/dL (6.3-8.2)
[2024-03-06 09:53] LABS: INR 0.9 (<1.2); Partial Thromboplastin Time 26.6 sec (22.0-30.0); Prothrombin Time 10.1 sec (10.0-12.5)
[2024-03-06] MEDS: HYDROmorphone 1 MG/ML 1 ML SYRINGE IVP STA (10:02)
[2024-03-06 11:32] LABS: Appearance,Urine Clear (Clear); Bilirubin,Urine Negative (Negative); Blood,Urine Negative (Negative); Color,Urine Colorless; Glucose,Urine (UA) Negative (Negative); Ketones,Urine Negative (Negative); Leukocyte Esterase,Urine Negative (Negative); Nitrite,Urine Negative (Negative); PH, Urine 6.5 (5.0-8.0); Protein,Urine Negative (Negative); Urobilinogen,Urine <2.0 mg/dL (<2.0)
--- NOTE | 2024-03-06 11:32 | CT ---
EXAMINATION TYPE: CT abdomen pelvis w con DATE OF EXAM: 03/06/2024 COMPARISON: 02/23/2024 CLINICAL INDICATION: Female, 29 years old with history of abd pain; PHH, LLQ pain, h/o POTS disease TECHNIQUE: Performed without Oral Contrast and with IV Contrast, patient injected with 100 mL of Isovue 300. CT DLP: 808.[address] CTDI: mGy Automated exposure control for dose reduction was used. FINDINGS: The lung bases are clear. The gallbladder is normal without distention, wall thickening, pericholecystic fluid or gallstones. T here is no biliary ductal dilatation. There is no focal mass or organomegaly involving the liver, pancreas, spleen or adrenal glands. There is no solid renal mass or hydronephrosis and there is homogeneous contrast enhancement of the r enal parenchyma. The caliber the abdominal aorta is normal is no retroperitoneal adenopathy or hemorr orlin. The bowel loops are normal in caliber and there is no evidence of dilatation or obstruction. No infla mmatory changes are identified in the bowel wall or mesentery. There is no free intraperitoneal air or fluid. No pelvic mass, abscess or adenopathy. There is a small amount of free fluid within the cul-de-sac. The osseous structures and soft tissues are intact. IMPRESSION: Small amount of free fluid within the cul-de-sac and the pelvis. No other significant abnormality see n. [facility], , 03/06/2024 11:30 AM
[2024-03-06 12:24] VITALS: BP 130/60; PULSE 90
[2024-03-06 22:37] LABS: Urine Alcohol Negative (Negative); Urine Barbiturate Negative (Negative); Urine Cocaine Negative (Negative); Urine Methadone Negative (Negative); Urine Opiates Positive (Negative); Urine Phencyclidine Negative (Negative)
== END 2024-03-06 12:30 | disposition home or self-care (01) ==
LOC: EC 07:24
DX: G89.29 Other chronic pain (principal); R10.9 Unspecified abdominal pain; F17.290 Nicotine dependence, other tobacco product, uncomplicated; Z88.8 Allergy status to other drugs, medicaments and biological substances
CPT/HCPCS: 36415; 85379; 80053; 82150; 83605; 83690; 84484; 85025; 85610; 85730; 81003; 84703; 80306; 74177; 99285; 96374; 96375 ×3; 96361; J2060; J2405; J1171; J1885; Q9967

== ENCOUNTER 2024-03-15 14:50 | Inpatient (IN) | payer OTHER ==
--- NOTE | 2024-03-15 14:59 | ED ---
Syncope HPI - General Chief Complaint: Syncope Stated Complaint: syncope Time Seen by Provider: 03/15/24 14:58 Source: EMS, RN notes reviewed, old records reviewed Mode of arrival: EMS Limitations: altered mental status - History of Present Illness Initial Comments: This is a 29 female to the ER for evaluation coming in for evaluation of syncope versus seizure incidents occurred yesterday with unresponsiveness. They did go to another hospital were unhappy with service and went home, they present to our ER for follow-up from yesterday's ER visit, patient is complaining of hip pain left hip pain altered mental status per the at bedside MD Complaint: loss of consciousness, felt faint, collapsed -: days(s) Prodromal Symptoms: lightheaded, palpitations -: minutes(s) Witnessed: yes - by bystander Current Symptoms: lightheaded, chest pain, weakness History: previous syncopal episode, seizure disorder - Related Data Home Medications Medication Instructions Recorded Confirmed Dextroamphetamine/Amphetamine 30 mg PO BID 02/23/24 03/06/24 [Adderall] clonazePAM [KlonoPIN] 1 mg PO BID PRN 02/23/24 03/06/24 Fludrocortisone [Florinef] 0.1 mg PO DAILY 03/06/24 03/06/24 Gabapentin 600 mg PO BID 03/06/24 03/06/24 HYDROcodone/APAP 5-325MG [[place] 5] 1 tab PO Q6HR PRN 03/06/24 03/06/24 Levonorgestrel/Ethinyl Estradiol 1 tab PO DAILY 03/06/24 03/06/24 0.15mg-30mcg Ziprasidone [Geodon] 40 mg PO BID 03/06/24 03/06/24 lamoTRIgine 150 mg PO HS 03/06/24 03/06/24 Allergies Allergy/AdvReac Type Severity Reaction Status Date / Time pantoprazole [From Protonix] Allergy Rash/Hives Verified 03/06/24 11:01 trazodone Allergy Rash/Hives Verified 03/06/24 11:01 Review of Systems ROS Statement: Those systems with pertinent positive or pertinent negative responses have been documented in the HPI. ROS Other: All systems not noted in ROS Statement are negative. Past Medical History Past Medical History: Rheumatoid Arthritis (RA), Seizure Disorder Additional Past Medical History / Comment(s): Autonomic dysfunction. Lopez History of Any Multi-Drug Resistant Organisms: Other MDRO Date of last positivie culture/infection: 2023 MDRO Source:: kidney- E. Coli Past Surgical History: Tubal Ligation Additional Past Surgical History / Comment(s): left shoulder surgery in 2018 Past Psychological History: ADD/ADHD, Anxiety, Bipolar Smoking Status: Vaper Past Alcohol Use History: None Reported Past Drug Use History: None Reported General Exam Limitations: altered mental status General appearance: alert, in no apparent distress, anxious Head exam: Present: atraumatic, normocephalic, normal inspection Eye exam: Present: normal appearance, PERRL, EOMI. Absent: scleral icterus, conjunctival injection, periorbital swelling ENT exam: Present: normal exam, mucous membranes moist Neck exam: Present: normal inspection. Absent: tenderness, meningismus, lymphadenopathy Respiratory exam: Present: normal lung sounds bilaterally. Absent: respiratory distress, wheezes, rales, rhonchi, stridor Cardiovascular Exam: Present: regular rate, normal rhythm, normal heart sounds. Absent: systolic murmur, diastolic murmur, rubs, gallop, clicks GI/Abdominal exam: Present: soft, normal bowel sounds. Absent: distended, tenderness, guarding, rebound, rigid Extremities exam: Present: normal inspection, full ROM, normal capillary refill. Absent: tenderness, pedal edema, joint swelling, calf tenderness Back exam: Present: normal inspection Neurological exam: Present: alert, oriented X3, CN II-XII intact Psychiatric exam: Present: normal affect, normal mood Skin exam: Present: warm, dry, intact, normal color. Absent: rash Course Vital Signs 03/15/24 03/15/24 14:51 16:00 Temperature 98.4 F 98.3 F Pulse Rate 90 94 Respiratory 18 16 Rate Blood Pressure 104/75 113/81 O2 Sat by Pulse 98 100 Oximetry - Reevaluation(s) Reevaluation #1: 03/15/24 14:59 Medical records reviewed Reevaluation #2: 03/15/24 16:46 Patient symptoms unchanged Reevaluation #3: 03/15/24 16:46 Patient informed of results and questions answered Reevaluation #4: Was pt. sent in by a medical professional or institution (, PA, TIPPLE REPAIRER, urgent care, hospital, or alf...) When possible be specific @ -no Did you speak to anyone other than the patient for history (EMS, parent, family, police, friend...)? What history was obtained from this source @ -no Did you review nursing and triage notes (agree or disagree)? Why? @ -agree Are old charts reviewed (outside hosp., previous admission, EMS record, old EKG, old radiological studies, urgent care reports/EKG's, alf records)? Report findings @ -yes Differential Diagnosis (chest pain, altered mental status, abdominal pain women, abdominal pain men, vaginal bleeding, weakness, fever, dyspnea, syncope, headache, dizziness, GI bleed, back pain, seizure, CVA, palpatations, mental health, musculoskeletal)? @ -prior EKG interpreted by me (3pts min.). @ -yes X-rays interpreted by me (1pt min.). @ -yes negative for acute disease CT interpreted by me (1pt min.). @ -no U/S interpreted by me (1pt. min.). @ -no What testing was considered but not performed or refused? (CT, X-rays, U/S, labs)? Why? @ -none What meds were considered but not given or refused? Why? @ -none Did you discuss the management of the patient with other professionals (professionals i.e. , PA, TIPPLE REPAIRER, lab, RT, psych nurse, social media coordinator, chemistry lecturer, teacher, sustainability officer, case loader operator)? Give summary @ -no Was smoking cessation discussed for >3mins.? @ -no Was critical care preformed (if so, how long)? @ -no Were there social determinants of health that impacted care today? How? (Homelessness, low income, unemployed, alcoholism, drug addiction, t ransportation, low edu. Level, literacy, decrease access to med. care, nursing home, rehab)? @ -none Was there de-escalation of care discussed even if they declined (Discuss DNR or withdrawal of care, Hospice)? DNR status @ -no What co-morbidities impacted this encounter? (DM, HTN, Smoking, COPD, CAD, Can cer, CVA, ARF, Chemo, Hep., AIDS, mental health diagnosis, sleep apnea, morbid obesity)? @ -none Was patient admitted / discharged? Hospital course, mention meds given and route, prescriptions, significant lab abnormalities, going to OR and other pertinent info. @ - Undiagnosed new problem with uncertain prognosis? @ -no Drug Therapy requiring intensive monitoring for toxicity (Heparin, Nitro, Insulin, Cardizem)? @ -no Were any procedures done? @ -no Diagnosis/symptom? @ - Acute, or Chronic, or Acute on Chronic? @ -Acute Uncomplicated (without systemic symptoms) or Complicated (systemic symptoms)? @ -Complicated Side effects of treatment? @ -no Exacerbation, Progression, or Severe Exacerbation? @ -exacerbation Poses a threat to life or bodily function? How? (Chest pain, USA, NM, pneumonia, PE, COPD, DKA, ARF, appy, cholecystitis, CVA, Diverticulitis, Homicidal, Suicidal, threat to staff... and all critical care pts) @ -yes Reevaluation #5: Differential Syncope: Valvular disease, hypertrophic cardiomyopathy, pulmonary embolism, tamponade, tachycardia, bradycardia, NM, hypovolemia, hemorrhage, dissection, anemia, intracranial hemorrhage, seizure, hypoglycemia, carbon monoxide poisoning, this is not meant to be an all-inclusive list. EKG Findings - EKG Comments: EKG Findings:: EKG is sinus 94 [place] 152 QRS 91 QTc 402 - EKG Results: EKG: interpreted by ERMD Medical Decision Making - Medical Decision Making 29 female to be admitted for syncope versus seizure altered mental status pain chronic pain with history of pots disease. Concern for seizure - Lab Data Result diagrams: 03/15/24 14:50 03/15/24 14:50 Lab Results 03/15/24 03/15/24 03/15/24 Range/Units 14:50 14:50 14:50 WBC 7.7 (3.8-10.6) k/uL RBC 4.31 (3.80-5.40) m/uL Hgb 13.1 (11.4-16.0) gm/dL Hct 38.5 (34.0-46.0) % MCV 89.4 (80.0-100.0) fL MCH 30.4 (25.0-35.0) pg MCHC 34.0 (31.0-37.0) g/dL RDW 12.5 (11.5-15.5) % Plt Count 303 (150-450) k/uL MPV 7.4 Neutrophils % 68 % Lymphocytes % 22 % Monocytes % 5 % Eosinophils % 4 % Basophils % 1 % Neutrophils # 5.2 (1.3-7.7) k/uL Lymphocytes # 1.7 (1.0-4.8) k/uL Monocytes # 0.4 (0-1.0) k/uL Eosinophils # 0.3 (0-0.7) k/uL Basophils # 0.0 (0-0.2) k/uL PT 9.7 L (10.0-12.5) sec INR 0.9 (<1.2) APTT 25.1 (22.0-30.0) sec Sodium 136 L (137-145) mmol/L Potassium 4.2 (3.5-5.1) mmol/L Chloride 106 (98-107) mmol/L Carbon Dioxide 21 L (22-30) mmol/L Anion Gap 9 mmol/L BUN 12 (7-17) mg/dL Creatinine 0.79 (0.52-1.04) mg/dL Est GFR (CKD-EPI)AfAm >90 (>60 ml/min/1.73 sqM) Est GFR (CKD-EPI)NonAf >90 (>60 ml/min/1.73 sqM) Glucose 122 H (74-99) mg/dL Plasma Lactic Acid Uri (0.7-2.0) mmol/L Calcium 8.9 (8.4-10.2) mg/dL Phosphorus 3.5 (2.5-4.5) mg/dL Magnesium 1.8 (1.6-2.3) mg/dL Total Bilirubin 0.3 (0.2-1.3) mg/dL AST 25 (14-36) U/L ALT 19 (4-34) U/L Alkaline Phosphatase 55 (38-126) U/L Troponin I (0.000-0.034) ng/mL NT-Pro-B Natriuret Pep <20 pg/mL Total Protein 7.0 (6.3-8.2) g/dL Albumin 4.1 (3.5-5.0) g/dL TSH 1.540 (0.465-4.680) mIU/L 03/15/24 03/15/24 Range/Units 14:50 14:50 WBC (3.8-10.6) k/uL RBC (3.80-5.40) m/uL Hgb (11.4-16.0) gm/dL Hct (34.0-46.0) % MCV (80.0-100.0) fL MCH (25.0-35.0) pg MCHC (31.0-37.0) g/dL RDW (11.5-15.5) % Plt Count (150-450) k/uL MPV Neutrophils % % Lymphocytes % % Monocytes % % Eosinophils % % Basophils % % Neutrophils # (1.3-7.7) k/uL Lymphocytes # (1.0-4.8) k/uL Monocytes # (0-1.0) k/uL Eosinophils # (0-0.7) k/uL Basophils # (0-0.2) k/uL PT (10.0-12.5) sec INR (<1.2) APTT (22.0-30.0) sec Sodium (137-145) mmol/L Potassium (3.5-5.1) mmol/L Chloride (98-107) mmol/L Carbon Dioxide (22-30) mmol/L Anion Gap mmol/L BUN (7-17) mg/dL Creatinine (0.52-1.04) mg/dL Est GFR (CKD-EPI)AfAm (>60 ml/min/1.73 sqM) Est GFR (CKD-EPI)NonAf (>60 ml/min/1.73 sqM) Glucose (74-99) mg/dL Plasma Lactic Acid Uri 2.4 H* (0.7-2.0) mmol/L Calcium (8.4-10.2) mg/dL Phosphorus (2.5-4.5) mg/dL Magnesium (1.6-2.3) mg/dL Total Bilirubin (0.2-1.3) mg/dL AST (14-36) U/L ALT (4-34) U/L Alkaline Phosphatase (38-126) U/L Troponin I <0.012 (0.000-0.034) ng/mL NT-Pro-B Natriuret Pep pg/mL Total Protein (6.3-8.2) g/dL Albumin (3.5-5.0) g/dL TSH (0.465-4.680) mIU/L - Radiology Data Radiology results: report reviewed (CT brain C-spine and x-rays negative for acute disease), image reviewed Disposition Clinical Impression: Dehydration, Syncope, Weakness, Altered mental state Disposition: ADMITTED IP TO THIS [facility] Condition: Fair Is patient prescribed a controlled substance at d/c from ED?: No Referrals: None,Stated [Primary Care Provider] - 1-2 days Time of Disposition: 17:00
[2024-03-15] MEDS: SODIUM CHLORIDE 0.9% 1,000 ML IV STA (15:17)
[2024-03-15 15:27] LABS: Basophils % (A) 1 %; Eosinophils # (A) 0.3 k/uL (0-0.7); Eosinophils % (A) 4 %; HCT 38.5 % (34.0-46.0); HGB 13.1 gm/dL (11.4-16.0); Lymphocytes # (A) 1.7 k/uL (1.0-4.8); Lymphocytes % (A) 22 %; MCH 30.4 pg (25.0-35.0); MCV 89.4 fL (80.0-100.0); Mean Platelet Volume 7.4; Monocytes # (A) 0.4 k/uL (0-1.0); Monocytes % (A) 5 %; Neutrophils # (A) 5.2 k/uL (1.3-7.7); Neutrophils % (A) 68 %; Platelet Count 303 k/uL (150-450); RBC 4.31 m/uL (3.80-5.40); RDW 12.5 % (11.5-15.5); WBC 7.7 k/uL (3.8-10.6)
[2024-03-15 15:38] LABS: INR 0.9 (<1.2); Partial Thromboplastin Time 25.1 sec (22.0-30.0); Prothrombin Time 9.7 sec (10.0-12.5)
[2024-03-15 15:43] LABS: ALT 19 U/L (4-34); African American GFR (CKD) >90 (>60 ml/min/1.73 sqM); Albumin 4.1 g/dL (3.5-5.0); Anion Gap 9 mmol/L; Blood Urea Nitrogen 12 mg/dL (7-17); Calcium 8.9 mg/dL (8.4-10.2); Carbon Dioxide 21 mmol/L (22-30); Chloride 106 mmol/L (98-107); Glucose 122 mg/dL (74-99); Non-African American GFR(CKD) >90 (>60 ml/min/1.73 sqM); Sodium 136 mmol/L (137-145); Total Bilirubin 0.3 mg/dL (0.2-1.3)
[2024-03-15 15:54] LABS: AST 25 U/L (14-36); Potassium 4.2 mmol/L (3.5-5.1)
[2024-03-15 15:55] LABS: Alkaline Phosphatase 55 U/L (38-126); Magnesium 1.8 mg/dL (1.6-2.3); Phosphorus 3.5 mg/dL (2.5-4.5)
[2024-03-15] MEDS: HYDROmorphone 1 MG/ML 1 ML SYRINGE IVP STA (16:01)
[2024-03-15] MEDS: levETIRAcetam IV 500 MG/5 ML VIAL IVP STA (16:04)
[2024-03-15 16:33] LABS: NT-Pro-B-Type Natriuretic Pept <20 pg/mL
--- NOTE | 2024-03-15 16:54 | CT ---
EXAMINATION TYPE: CT brain cspine wo con DATE OF EXAM: 03/15/2024 4:41 PM COMPARISON: None. CLINICAL INDICATION: Female, 29 years old with history of fall; Pt c/o multiple syncopal episodes sin ce yesterday TECHNIQUE: Brain: Multiple axial CT images of the brain were obtained without IV contrast. Cspine: Axial CT images from the skull base to the inferior aspect of T2 we obtained without intraven ous contrast. Coronal and sagittal reformatted images were also reviewed. . CT DLP: 1381.2 mGycm, Automated exposure control for dose reduction was used. FINDINGS: Brain: Extra-axial spaces: No abnormal extra-axial fluid collections. Ventricular system: Within normal limits Cerebral parenchyma: No acute intraparenchymal hemorrhage or mass effect. The panchal-white junction is well differentiated. Cerebellum: Unremarkable. Mass effect: No evidence of midline shift. Intracranial vasculature: unremarkable Soft tissues: Normal. Calvarium/osseous structures: No depressed skull fracture. Paranasal sinuses and mastoid air cells: Clear. Visualized orbits: Orbital contents are intact. Cervical spine: Fracture: None. Osseous structures: Unremarkable Vertebral alignment: Within normal limits. Spinal canal/Neural Foramina: No evidence of significant spinal canal narrowing. No evidence for sign ificant neural foraminal stenosis. Neck soft tissues: Prevertebral soft tissues are within normal limits. Other: The airway is patent. The lung apices are clear. IMPRESSION: 1. No acute intracranial process. 2. No evidence of cervical spine fracture. [facility], , 03/15/2024 4:51 PM
--- NOTE | 2024-03-15 16:58 | XR ---
EXAMINATION TYPE: XR chest 1V DATE OF EXAM: 03/15/2024 4:50 PM COMPARISON: 02/28/2024. CLINICAL INDICATION: Female, 29 years old with history of fall; TECHNIQUE: XR chest 1V Frontal view of the chest. FINDINGS: Lungs/Pleura: There is no evidence of pleural effusion, focal consolidation, or pneumothorax. Pulmonary vascularity: Unremarkable. Heart/mediastinum: Cardiomediastinal silhouette is unremarkable. Musculoskeletal: No acute osseous pathology. IMPRESSION: No acute cardiopulmonary disease/process. [facility], , 03/15/2024 4:55 PM
--- NOTE | 2024-03-15 17:01 | XR ---
EXAMINATION TYPE: XR Hip LT and AP Pelvis DATE OF EXAM: 03/15/2024 4:50 PM COMPARISON: None CLINICAL INDICATION: Female, 29 years old with history of fall; TECHNIQUE: XR Hip LT and AP Pelvis; hip was examined in the frontal and lateral projections and a AP pelvis. FINDINGS: No evidence for acute process, joint dislocation or significant soft tissue swelling. Osteo phyte formation of the superior acetabulum of the hip. There is mild joint space narrowing. IMPRESSION: 1. No evidence for acute process. 2. Mild hip osteoarthrosis. [facility], Workstation: [id number], 03/15/2024 4:59 PM
[2024-03-15] MEDS: SODIUM CHLORIDE 0.9% 1,000 ML IV SCH (17:21)
--- NOTE | 2024-03-15 21:34 | P.HPIM ---
History of Present Illness H&P Date: 03/15/24 Chief Complaint: Syncope History of present illness; 29-year-old female with PMH of POTs, crohns disease, seronegative rheumatoid arthritis, and ?seizure disorder who presents for syncope, altered mental status, and left hip pain. Of note patient reports this event occurred yesterday with unresponsiveness and she did go to another hospital but was unhappy with the service so went home and decided to come to our ER today for follow-up after yesterday's ER visit. States yesterday morning she got up from the couch and was walking to the kitchen when she became weak and fell on the ground. Admits to hitting her head and remaining conscious while on the ground. Per the boyfriend he did not see the patient have any jerking movements. She does not remember getting up though, only remembers waking up in bed. Reports later she would find out that her boyfriend and the man they are living with carried her to her bed. Reports after this her boyfriend decided to take her to the emergency room where she had vitals and some labs taken in the w aiting room, but she grew impatient with the amount of time it was taking to be seen so her and her boyfriend left to go back home. She then reports sleeping through the night without any issues. Reports today she had similar weakness to yesterday and reports another episode of passing out but is unable to properly describe the events that occurred prior during or after this episode. She also reports before coming to the ED today that she was having trouble articulating her thoughts and speaking. Admits to headache, chest pain which she currently rates as a 4 out of 10 radiating to the back to, down the left arm, and up to the jaw. States this chest pain occurs at rest and on exertion. Reports the chest pain becomes worse when she rolls onto her left side. Also admits to abdominal pain and diarrhea which she states are chronic secondary to her Crohn's disease. Admits to shortness of breath, nausea, lower extremity swelling, fevers, and chills. Denies constipation and diaphoresis. Labs: WBC 7.7, hemoglobin 8.1, MCV 99.4, PT 9.7, sodium 136 bicarb 21, glucose 122, plasma lactic acid pain 2.4->1.2, troponin less than 0.012, BNP less than 20, and TSH 1.54. Imaging: -EKG done in the ER showed heart rate of 94 bpm, no ST segment elevation or depression seen, no T-wave inversions seen. Sinus rhythm with QTc of 402 ms. -ER CXR: No acute cardiopulmonary disease/process. -ER CT Head/C-spine: No acute intracranial process and no evidence of cervical spine fracture. -ER hip x-ray: No evidence for acute process, mild hip osteoarthrosis. REVIEW OF SYSTEMS: As stated above in HPI. The rest of the 14-point review of systems is negative. PHYSICAL EXAMINATION: GENERAL: The patient is alert and oriented x3, not in any acute distress. Well developed, well nourished. HEENT: Pupils are round and equally reacting to light. EOMI. No scleral icterus. No conjunctival pallor. Normocephalic, atraumatic. CARDIOVASCULAR: S1 and S2 present. No murmurs, rubs, or gallops. PULMONARY: Chest is clear to auscultation b/l, no wheezing or crackles. ABDOMEN: Soft, tender, nondistended, normoactive bowel sounds. No palpable organomegaly. MUSCULOSKELETAL: No joint swelling or deformity. Tenderness of the left hip. EXTREMITIES: No cyanosis, clubbing, or pedal edema. NEUROLOGICAL: Gross neurological examination did not reveal any focal deficits. SKIN: No rashes. PSYCH: Observed the patient having tangential speech while answering questions during our interview. Assessment and Plan 29-year-old female with PMH of rheumatoid arthritis and seizure disorder presents syncope, altered mental status, and left hip pain. Patient is admitted to the internal medicine service will likely stay less than 2 midnights. # Syncopal episode: Potentially seizure versus POTS's vs cardiogenic -Status post Keppra 500 mg IVP once in ED, start Keppra at 1000 mg p.o. every 12 hours -Fall/seizure precautions -Neurology consulted -Cardio consulted -CT brain shows no acute intracranial process -Order EEG -Ordered echo -Orthostatics -Cardiac monitoring -Speech and occupational therapy consulted -C/w IVFs NS 75 mL/hr #Lactic acidosis -Resolved #Left hip pain status post fall of unknown etiology -Hip x-ray shows no evidence for acute process, mild hip osteoarthrosis -Continue analgesia -Continue to monitor #Pressured speech with tangentiality in setting of bipolar disorder hx -Psychiatry consulted -Resume home psych meds Chronic Conditions: #Rheumatoid arthritis -Continue home medications once reconciled #Crohn's disease -Admits to diarrhea but states it is not worse than usual, denies seeing blood i n the stool -Continue home Bentyl F: NS 75 cc/h E: None N: Regular diet A: Ambulates unassisted at home DVT ppx: Lovenox 40 SQ daily GI ppx: Famotidine 20 mg p.o. daily CODE STATUS: Full code Dispo: Pending clinical course Mitzi Scanlno MD PGY-1 FM Dictation was produced using Fio dictation software. please excuse any grammatical, word or spelling errors. Past Medical History Past Medical History: Rheumatoid Arthritis (RA), Seizure Disorder Additional Past Medical History / Comment(s): Autonomic dysfunction. Lopez History of Any Multi-Drug Resistant Organisms: Other MDRO Date of last positivie culture/infection: 2023 MDRO Source:: kidney- E. Coli Past Surgical History: Tubal Ligation Additional Past Surgical History / Comment(s): left shoulder surgery in 2017 Past Psychological History: ADD/ADHD, Anxiety, Bipolar Smoking Status: Vaper Past Alcohol Use History: None Reported Past Drug Use History: None Reported Medications and Allergies Home Medications Medication Instructions Recorded Confirmed Type Dextroamphetamine/Amphetamine 30 mg PO BID 02/23/24 03/15/24 History [Adderall] clonazePAM [KlonoPIN] 1 mg PO BID PRN 02/23/24 03/15/24 History Fludrocortisone [Florinef] 0.1 mg PO DAILY 03/06/24 03/15/24 History Gabapentin 600 mg PO BID 03/06/24 03/15/24 History Levonorgestrel/Ethinyl Estradiol 1 tab PO DAILY 03/06/24 03/15/24 History 0.15mg-30mcg Ziprasidone [Geodon] 40 mg PO BID 03/06/24 03/15/24 History lamoTRIgine 150 mg PO HS 03/06/24 03/15/24 History Dicyclomine [Bentyl] 20 mg PO QID 03/15/24 03/15/24 History Allergies Allergy/AdvReac Type Severity Reaction Status Date / Time pantoprazole [From Protonix] Allergy Rash/Hives Verified 03/15/24 17:31 trazodone Allergy Rash/Hives Verified 03/15/24 17:31 Physical Exam Vitals: Vital Signs Temp Pulse Resp BP Pulse Ox 03/15/24 18:40 99 16 113/79 99 03/15/24 17:28 102 H 16 106/74 97 03/15/24 16:00 98.3 F 94 16 113/81 100 03/15/24 14:51 98.4 F 90 18 104/75 98 Intake and Output 03/15/24 03/15/24 03/15/24 06:59 14:59 22:59 Other: Weight 63.503 kg Results CBC & Chem 7: 03/15/24 14:50 03/15/24 14:50 Labs: Abnormal Lab Results - Last 24 Hours (Table) 03/15/24 03/15/24 03/15/24 Range/Units 14:50 14:50 14:50 PT 9.7 L (10.0-12.5) sec Sodium 136 L (137-145) mmol/L Carbon Dioxide 21 L (22-30) mmol/L Glucose 122 H (74-99) mg/dL Plasma Lactic Acid Uri 2.4 H* (0.7-2.0) mmol/L
[2024-03-15] MEDS: HYDROmorphone 1 MG/ML 1 ML SYRINGE IVP PRN (21:42)
[2024-03-15] MEDS: DICYCLOMINE 10 MG CAP PO SCH (22:16)
[2024-03-15] MEDS: GABAPENTIN 300 MG CAP PO SCH (22:16)
[2024-03-16] MEDS: ONDANSETRON 4 MG/2 ML VIAL IVP PRN (00:08)
[2024-03-16 06:03] LABS: Appearance,Urine Clear (Clear); Bilirubin,Urine Negative (Negative); Blood,Urine Moderate (Negative); Color,Urine Colorless; Glucose,Urine (UA) Negative (Negative); Ketones,Urine Negative (Negative); Leukocyte Esterase,Urine Negative (Negative); Mucus,Urine Rare /hpf; Nitrite,Urine Negative (Negative); PH, Urine 6.5 (5.0-8.0); Protein,Urine Negative (Negative); RBC,Urine 1 /hpf (0-5); Specific Gravity,Urine 1.021 (1.001-1.035); Squamous Epithelial Cell,Urine 7 /hpf (0-4); Urobilinogen,Urine <2.0 mg/dL (<2.0); WBC,Urine 2 /hpf (0-5)
[2024-03-16 08:10] LABS: Glucose,Whole Blood 80 mg/dL (70-110)
[2024-03-16 08:41] LABS: Basophils # (A) 0.06 X 10*3/uL (0.00-0.10); Basophils % (A) 0.7 %; Eosinophils # (A) 0.18 X 10*3/uL (0.04-0.35); HGB 11.9 g/dL (12.0-15.0); Lymphocytes # (A) 2.15 X 10*3/uL (0.90-5.00); Lymphocytes % (A) 24.3 %; MCH 29.9 pg (27.0-32.0); MCHC 33.1 g/dL (32.0-37.0); MCV 90.5 FL (80.0-97.0); Mean Platelet Volume 10.2 FL (9.5-12.2); Monocytes # (A) 0.57 X 10*3/uL (0.20-1.00); Monocytes % (A) 6.4 %; NRBC Per 100 WBC 0 X 10*3/uL (0.00-0.01); Neutrophils # (A) 5.85 X 10*3/uL (1.80-7.70); Neutrophils % (A) 66.1 %; Platelet Count 303 X 10*3/uL (140-440); RBC 3.98 X 10*6/uL (4.10-5.20); RDW 12.6 % (11.5-14.5); WBC 8.85 X 10*3/uL (4.50-10.00)
[2024-03-16] MEDS: ZIPRASIDONE 40 MG CAP PO SCH (08:42)
[2024-03-16] MEDS: FLUDROCORTISONE 0.1 MG TAB PO SCH (08:42)
[2024-03-16] MEDS: ENOXAPARIN 40 MG/0.4 ML SYRINGE SQ SCH (08:43)
[2024-03-16] MEDS: LORazepam 2 MG/ML INJ IV STA (08:43)
[2024-03-16] MEDS: levETIRAcetam 500 MG TAB PO SCH (08:43)
[2024-03-16] MEDS: FAMOTIDINE 20 MG TAB PO SCH (08:43)
[2024-03-16] MEDS: LEVONORGESTREL PO SCH (08:53)
[2024-03-16] MEDS: ETHINYL ESTRADIOL PO SCH (08:53)
[2024-03-16 08:58] LABS: Magnesium 1.8 mg/dL (1.5-2.4); Phosphorus 4.2 mg/dL (2.4-5.1)
[2024-03-16 09:08] LABS: ALT 15 U/L (8-44); AST 13 U/L (13-35); Albumin 3.8 g/dL (3.8-4.9); Albumin/Globulin Ratio 1.73 Ratio (1.60-3.17); Alkaline Phosphatase 58 U/L (41-126); BUN/Creat Ratio 11.67 Ratio (12.00-20.00); Blood Urea Nitrogen 10.5 mg/dL (9.0-27.0); Calcium 8.8 mg/dL (8.7-10.3); Carbon Dioxide 22.9 mmol/L (21.6-31.8); Chloride 105 mmol/L (96-109); Globulin 2.2 g/dL (1.6-3.3); Glucose 89 mg/dL (70-110); Potassium 4.8 mmol/L (3.5-5.5); Sodium 138 mmol/L (135-145); Total Bilirubin 0.3 mg/dL (0.3-1.2)
--- NOTE | 2024-03-16 10:27 | P.CRDCN ---
History of Present Illness History of present illness: HISTORY OF PRESENT ILLNESS: This is a 29-year-old female with a past medical history significant for ADD, anxiety, bipolar disorder, nicotine dependence in the form of vaping, seizure disorder, and POTS. Patient states that she just moved here from [place] and has not established with a hand mold maker. We have been asked to see the patient in consultation for syncope. Patient examined at the bedside. An A-team was calling this morning due to possible seizure activity. Patient was given Ativan and is lethargic at the time of examination. The patient does have a history of seizures. Patient also reports that she passes out " all the time". Apparently, the patient was recently at [facility] and had an episode of urinary incontinence. The patient denies any previous cardiac history except for POTS. She currently denies any chest pain or pressure. Denies any shortness of breath. DIAGNOSTICS: - EKG reveals sinus mechanism with no signs of acute ischemia - Chest xray negative for acute process - Laboratory data: WBC 8.85. Hemoglobin 11.9. Platelet count 303. Sodium 138. Potassium 4.8. BUN 10.5. Creatinine 0.9. - Current home cardiac medications include Florinef 0.1 mg daily - No previous echocardiogram, stress test, or cardiac catheterization available for review REVIEW OF SYSTEMS: At the time of my exam: CONSTITUTIONAL: Denies fever or chills. HEENT: Denies blurred vision, vision changes, or eye pain. Denies hemoptysis CARDIOVASCULAR: Denies chest pain. Denies orthopnea. Denies PND. Denies palpitations RESPIRATORY: Denies shortness of breath. GASTROINTESTINAL: Denies abdominal pain. Denies nausea or vomiting. HEMATOLOGIC: Denies bleeding disorders. GENITOURINARY: Denies any blood in urine. SKIN: Denies pruitis. Denies rash. PHYSICAL EXAM: VITAL SIGNS: Reviewed. GENERAL: Well-developed in no acute distress. HEENT: Head is normocephalic. Pupils are equal, round. Sclerae anicteric. Mucous membranes of the mouth are moist. Neck supple. No JVD or thyromegaly LUNGS: Respirations even and unlabored. Lungs essentially clear to auscultation bilaterally. HEART: Regular rate and rhythm. S1 and S2 heard. ABDOMEN: Soft. Nondistended. Nontender. EXTREMITIES: Normal range of motion. No clubbing or cyanosis. Peripheral pulses intact. No lower extremity edema NEUROLOGIC: Slightly lethargic as patient just received Ativan ASSESSMENT: Reported syncope Possible seizure activity History of POTS History of seizure disorder Anxiety History of ADD History of bipolar disorder Nicotine dependence in the form of vaping PLAN: Patients symptoms do not appear to be cardiac in nature Obtain 2D echo to assess cardiac structure and function Continue telemetry monitoring to assess for any arrhythmias Await neurology evaluation Further recommendations pending patient course Nurse practitioner note has been reviewed by physician. Signing provider agrees with the documented findings, assessment, and plan of care documented by CUSTOMER COMPLAINT SERVICE SUPERVISOR as a scribe. Past Medical History Past Medical History: Rheumatoid Arthritis (RA), Seizure Disorder Additional Past Medical History / Comment(s): Autonomic dysfunction. Lopez History of Any Multi-Drug Resistant Organisms: Other MDRO Date of last positivie culture/infection: 2023 MDRO Source:: kidney- E. Coli Past Surgical History: Tubal Ligation Additional Past Surgical History / Comment(s): left shoulder surgery in 2018 Past Psychological History: ADD/ADHD, Anxiety, Bipolar Smoking Status: Vaper Past Alcohol Use History: None Reported Past Drug Use History: None Reported Medications and Allergies Home Medications Medication Instructions Recorded Confirmed Type Dextroamphetamine/Amphetamine 30 mg PO BID 02/23/24 03/15/24 History [Adderall] clonazePAM [KlonoPIN] 1 mg PO BID PRN 02/23/24 03/15/24 History Fludrocortisone [Florinef] 0.1 mg PO DAILY 03/06/24 03/15/24 History Gabapentin 600 mg PO BID 03/06/24 03/15/24 History Levonorgestrel/Ethinyl Estradiol 1 tab PO DAILY 03/06/24 03/15/24 History 0.15mg-30mcg Ziprasidone [Geodon] 40 mg PO BID 03/06/24 03/15/24 History lamoTRIgine 150 mg PO HS 03/06/24 03/15/24 History Dicyclomine [Bentyl] 20 mg PO QID 03/15/24 03/15/24 History Allergies Allergy/AdvReac Type Severity Reaction Status Date / Time pantoprazole [From Protonix] Allergy Rash/Hives Verified 03/15/24 17:31 trazodone Allergy Rash/Hives Verified 03/15/24 17:31 Physical Exam Vitals: Vital Signs Temp Pulse Pulse Resp BP BP Pulse Ox 03/16/24 07:00 97.9 F 74 16 101/66 99 03/16/24 02:00 97.8 F 89 18 102/69 99 03/15/24 23:50 98.3 F 90 18 105/72 99 03/15/24 22:58 98.3 F 94 18 106/86 97 03/15/24 21:46 98 18 110/75 98 03/15/24 18:40 99 16 113/79 99 03/15/24 17:28 102 H 16 106/74 97 03/15/24 16:00 98.3 F 94 16 113/81 100 03/15/24 14:51 98.4 F 90 18 104/75 98 Intake and Output 03/15/24 03/16/24 03/16/24 22:59 06:59 14:59 Intake Total 0 Balance 0 Intake: Oral 0 Other: # Voids 0 Weight 63.503 kg Results 03/16/24 03:55 03/16/24 03:55 Cardiac Enzymes 03/15/24 03/15/24 Range/Units 14:50 14:50 AST 25 (14-36) U/L Troponin I <0.012 (0.000-0.034) ng/mL Coagulation 03/15/24 Range/Units 14:50 PT 9.7 L (10.0-12.5) sec APTT 25.1 (22.0-30.0) sec CBC 03/15/24 Range/Units 14:50 WBC 7.7 (3.8-10.6) k/uL RBC 4.31 (3.80-5.40) m/uL Hgb 13.1 (11.4-16.0) gm/dL Hct 38.5 (34.0-46.0) % Plt Count 303 (150-450) k/uL Comprehensive Metabolic Panel 03/15/24 Range/Units 14:50 Sodium 136 L (137-145) mmol/L Potassium 4.2 (3.5-5.1) mmol/L Chloride 106 (98-107) mmol/L Carbon Dioxide 21 L (22-30) mmol/L BUN 12 (7-17) mg/dL Creatinine 0.79 (0.52-1.04) mg/dL Glucose 122 H (74-99) mg/dL Calcium 8.9 (8.4-10.2) mg/dL AST 25 (14-36) U/L ALT 19 (4-34) U/L Alkaline Phosphatase 55 (38-126) U/L Total Protein 7.0 (6.3-8.2) g/dL Albumin 4.1 (3.5-5.0) g/dL Current Medications Generic Name Dose Route Start Last Admin Trade Name Freq PRN Reason Stop Dose Admin Dicyclomine HCl 20 mg 03/15/24 22:00 03/15/24 22:16 Dicyclomine 10 Mg Cap PO 20 mg QID JULIA Administration Enoxaparin Sodium 40 mg 03/16/24 09:00 Enoxaparin 40 Mg/0.4 Ml Syringe SQ DAILY JULIA Famotidine 20 mg 03/16/24 09:00 Famotidine 20 Mg Tab PO DAILY JULIA Fludrocortisone Acetate 0.1 mg 03/16/24 09:00 Fludrocortisone 0.1 Mg Tab PO DAILY JULIA Gabapentin 600 mg 03/15/24 22:00 03/15/24 22:16 Gabapentin 300 Mg Cap PO 600 mg BID JULIA Administration Hydromorphone HCl 1 mg 03/15/24 16:44 03/16/24 05:58 Hydromorphone 1 Mg/Ml 1 Ml Syringe IVP 1 mg Q3HR PRN Administration Severe Pain (Scale 7 to 10) Sodium Chloride 1,000 mls @ 75 mls/hr 03/15/24 16:45 03/15/24 17:21 Saline 0.9% IV 75 mls/hr .[id number] JULIA Administration Lamotrigine 150 mg 03/16/24 21:00 Lamotrigine 100 Mg Tab PO HS JULIA Levetiracetam 1,000 mg 03/16/24 09:00 Levetiracetam 500 Mg Tab PO Q12HR JULIA Naloxone HCl 0.2 mg 03/15/24 16:44 Naloxone 0.4 Mg/Ml 1 Ml Vial IV Q2M PRN Opioid Reversal Non-Formulary Medication 1 tab 03/16/24 09:00 Levonorgestrel/Ethinyl Estradiol 0.15mg-30mcg PO DAILY [facility] Ondansetron HCl 4 mg 03/15/24 16:44 03/16/24 00:08 Ondansetron 4 Mg/2 Ml Vial IVP 4 mg Q8HR PRN Administration Nausea And Vomiting Ziprasidone 40 mg 03/16/24 09:00 Ziprasidone 40 Mg Cap PO BID JULIA Intake and Output 03/15/24 03/16/24 03/16/24 22:59 06:59 14:59 Intake Total 0 Balance 0 Intake: Oral 0 Other: # Voids 0 Weight 63.503 kg 03/15/24 14:50 03/15/24 14:50
[2024-03-16] MEDS ORDERED: MIRTAZAPINE 15 MG TAB PO PRN (11:33)
--- NOTE | 2024-03-16 11:40 | P.CN ---
Psychiatric Consult - . Consult date: 03/16/24 Consult:: 03/16/24 11:04 IDENTIFYING DATA: This patient is a 29-year-old female, currently is engaged, lives with her fianc, has no kids, she is unemployed REASON FOR REFERRAL: Psychiatry was consulted for altered mental status HISTORY OF PRESENT ILLNESS: The patient presented to the hospital through the ER yesterday for evaluation of syncope versus seizures. Patient also had an episode of unresponsiveness, was complaining of left hip pain. She was having altered mental status as well, she apparently has a history of POTs disease and history of bipolar disorder. Patient had a CT scan of her head which did not show any acute fracture or acute changes. Patient was seen today in her room agreeable to speak to greeting card writer, she was mildly irritable however states that she feels a bit snappy due to her pain not being under control. She states that she is usually a very pleasant person when she is not in pain. Claims that she is also feeling hungry since she was not allowed to eat. She states that she has been diagnosed with POts for the past 2 years after receiving a COVID vaccination. Claims that she also has a history of bipolar disorder for the past 10 years, ADHD and anxiety. States that she recently moved to [place] for the past 3 weeks from [place]. States that she was living in a tent over there and was not able to manage. States that her blood pressure dropped and she "passed out" and also had seizures. She states that this happens every now and again due to her illness. She was fairly somatically preoccupied claims that her physical illness has "gotten worse" however states that her bipolar disorder is stable and she is mentally feeling well. Claims that she does have mild depression at this time however nothing significant, denying any manic symptoms. Claims that her appetite is fair, sleep has been on and off about 3 to 4 hours a night. At this time patient denies any suicidal or homical ideations, intent or plan. Patient denies any auditory, visual hallucinations and denies any paranoia or delusions. Patients admits to using cannabis occasionally, denies any other recreational drug use PAST PSYCHIATRIC HISTORY: Patient has a a history of bipolar disorder, ADHD and anxiety. Patient is currently on Lamictal and Geodon, claims that she takes it regularly. She states that she was last psychiatrically hospitalized at the age of [age] years old in [place]. She claims that she last saw her psychiatrist in [place] before she moved to [place]. Patient denies any history of suicide attempts in the past. Past Medical History: Rheumatoid Arthritis (RA), Seizure Disorder Additional Past Medical History / Comment(s): Autonomic dysfunction. Lopez History of Any Multi-Drug Resistant Organisms: Other MDRO Date of last positivie culture/infection: 2023 MDRO Source:: kidney- E. Coli Past Surgical History: Tubal Ligation Additional Past Surgical History / Comment(s): left shoulder surgery in 2018 Past Psychological History: ADD/ADHD, Anxiety, Bipolar Smoking Status: Vaper Past Alcohol Use History: None Reported Past Drug Use History: None Reported ALLERGIES: as per EMR. CHEMICAL DEPENDENCY HISTORY: as per HPI. FAMILY PSYCHIATRIC/SUBSTANCE USE HISTORY: Denies SOCIAL HISTORY: Patient was born and raised in [place] and moved to several different states growing up. She claims that she completed her bachelor's degree in high school degree. States that she is unemployed, she does not have any kids, she lives with her boyfriend. Denies any legal history. MENTAL STATUS EXAM: General Appearance: Patient appears to be stated age is alert, pleasant, and attempts to be cooperative. Patient appears to have fair hygiene and grooming wearing hospital gown with fair eye contact. Behavior: Patient is calmly lying in bed without any agitated behavior. Attempts to cooperate Speech: Patient's speech is fluent and nonpressured. Mood/Affect: Patient reports their mood is "a bit down", affect is congruent Suicidality/Homicidality: Patient denies having any suicidal or homicidal ideation intent or plan. Perceptions: Patient denies any visual hallucinations and denies any auditory hallucinations Though content/process: There is no evidence of any delusional thought content and thought process is linear and goal-directed. rambles at times Memory and concentration: AOX3, grossly intact for the purposes of this session. Can spell "WORLD" backwards Judgment and insight: fair IMPRESSIONS: Bipolar disorder unspecified History of ADHD Generalized anxiety disorder Cannabis use disorder mild PLAN: -At this time patient DOES NOT meet criteria for inpatient psychiatric admission. -Would recommend the following medication changes/additions: Added Remeron 15 mg nightly as needed for insomnia, Lamictal increased to 100 mg twice daily for mood stabilization/depression, she was informed of the s/e of a possible rash and to monitor her skin. Geodon 40 mg twice daily for mood stabilization. -utility worker woolen mill to provide patient with outpatient mental health/psychiatry resources for appropriate follow up upon discharge -Manager Pulmonary spoke with patient about substance abuse and the harmful effects on medical and mental health, patient verbally understood and agreed. -Communicated plan to patient's nurse -Psychiatry will sign off at this time -Please contact with any questions. 03/16/24 11:33
[2024-03-16] MEDS: NALOXONE 0.4 MG/ML 1 ML VIAL IV PRN (12:56)
[2024-03-16 12:57] LABS: Glucose,Whole Blood 127 mg/dL (70-110)
--- NOTE | 2024-03-16 13:24 | P.PN ---
Subjective Progress Note Date: 03/16/24 29-year-old female with PMH of POTs, crohns disease, seronegative rheumatoid arthritis, and ?seizure disorder who presents for syncope, altered mental status, and left hip pain 03/16: noted to have pinpoint pupils this am and unresponsive. given naloxone 0.2 mg x2 with appropriate response with awakening. Objective - Vital Signs Vital signs: Vital Signs Temp 97.9 F 03/16/24 07:00 Pulse 74 03/16/24 07:00 Resp 12 03/16/24 12:56 BP 101/66 03/16/24 07:00 Pulse Ox 99 03/16/24 07:00 FiO2 Intake & Output 03/15/24 03/16/24 03/16/24 18:59 06:59 18:59 Intake Total 0 Balance 0 Weight 63.503 kg 63.503 kg Intake: Oral 0 Other: # Voids 1 1 - Exam GENERAL: female appears stated age. extremely somonolent HEENT: pipoint pupils and not tracking eye movements. No scleral icterus. No conjunctival pallor. Normocephalic, atraumatic. CARDIOVASCULAR: S1 and S2 present. No murmurs, rubs, or gallops. PULMONARY: Chest is clear to auscultation b/l, no wheezing or crackles. ABDOMEN: Soft, nondistended, normoactive bowel sounds. No palpable o rganomegaly. MUSCULOSKELETAL: No joint swelling or deformity. EXTREMITIES: No cyanosis, clubbing, or pedal edema. NEUROLOGICAL: exam limited given somnolence. unable to follow commands SKIN: No rashes. PSYCH: agitated after naloxone adminsitration - Labs CBC & Chem 7: 03/16/24 03:55 03/16/24 03:55 Labs: Abnormal Lab Results - Last 24 Hours (Table) 03/15/24 03/15/24 03/15/24 Range/Units 14:50 14:50 14:50 RBC (4.10-5.20) X 10*6/uL Hgb (12.0-15.0) g/dL Hct (37.2-46.3) % PT 9.7 L (10.0-12.5) sec Sodium 136 L (137-145) mmol/L Carbon Dioxide 21 L (22-30) mmol/L BUN/Creatinine Ratio (12.00-20.00) Ratio Glucose 122 H (74-99) mg/dL POC Glucose (mg/dL) (70-110) mg/dL Plasma Lactic Acid Uri 2.4 H* (0.7-2.0) mmol/L Total Protein (6.2-8.2) g/dL Urine Blood (Negative) Ur Squamous Epith Cells (0-4) /hpf Urine Mucus (None) /hpf 03/16/24 03/16/24 03/16/24 Range/Units 03:55 03:55 05:30 RBC 3.98 L (4.10-5.20) X 10*6/uL Hgb 11.9 L (12.0-15.0) g/dL Hct 36.0 L (37.2-46.3) % PT (10.0-12.5) sec Sodium (137-145) mmol/L Carbon Dioxide (22-30) mmol/L BUN/Creatinine Ratio 11.67 L (12.00-20.00) Ratio Glucose (74-99) mg/dL POC Glucose (mg/dL) (70-110) mg/dL Plasma Lactic Acid Uri (0.7-2.0) mmol/L Total Protein 6.0 L (6.2-8.2) g/dL Urine Blood Moderate H (Negative) Ur Squamous Epith Cells 7 H (0-4) /hpf Urine Mucus Rare H (None) /hpf 03/16/24 Range/Units 12:56 RBC (4.10-5.20) X 10*6/uL Hgb (12.0-15.0) g/dL Hct (37.2-46.3) % PT (10.0-12.5) sec Sodium (137-145) mmol/L Carbon Dioxide (22-30) mmol/L BUN/Creatinine Ratio (12.00-20.00) Ratio Glucose (74-99) mg/dL POC Glucose (mg/dL) 127 H (70-110) mg/dL Plasma Lactic Acid Uri (0.7-2.0) mmol/L Total Protein (6.2-8.2) g/dL Urine Blood (Negative) Ur Squamous Epith Cells (0-4) /hpf Urine Mucus (None) /hpf Assessment and Plan Assessment: #) Syncopal event. potential of seizure-potentially nonepilpitoform activity vs. other. Continue seizure precautions. on keppra 1000 mg BID. of ntoe she is on lamictal and gabapentin at home. i suspect lower degree to suspect a seizure. awaiting eeg. no driving x 6m onths #) Lactic acidosis, from ?synvope vs nonepitlioforam acity #) Left hip pain- monitor #) bipolar disorder- on geodon and lamicital at home-continue #) RHeumatoid arthritis #) Chrons diseae but not on any biologic therapy. continue home betnyl #) Episode of alteration on the afternoon of 03/16- iv hydrormprophne unintentioanl overdose vs other. responded to naloxone. check stat uds as had visitiors this am dvt ppx: lovenox gi ppx: pepcid Time with Patient: Greater than 30
--- NOTE | 2024-03-16 17:28 | P.CNNES ---
History of Present Illness Consult date: 03/16/24 Requesting physician: Yves Caro Reason for Consult: seizure History of Present Illness: This is a 29-year-old woman with a history of seizure, bipolar, POTS syndrome, who presented emergency department for evaluation of syncopal spells with altered mental status. Patient is very tangential during the history and she is in tears. She stated that she became unresponsive and prior to the episode that she was dizzy. This episode started yesterday and she went to another facility but was in the ER and her symptoms was not being addressed so her boyfriend got her out of the hospital and took her home. Seems the patient became weak and fell to the ground but did not lose consciousness as a result her boyfriend brought her to our facility. In the morning per the primary team it seems that the patient had seizure-like activity. As stated earlier patient is very tangential and is in tears and she stated that she was living in [place] and was evaluated by neurologist in [place] and they placed her on Keppra and had an EEG which was abnormal. After being on Keppra she felt her seizure-like activity was improved. She stated that she was homeless in [place] and was living in a tent so she moved to [place] because she has friends here. She has not been on Keppra for at least more than 3 weeks. She stated that she is on Lamictal for her bipolar and she is on Lamictal 150 mg daily. Regarding her prior seizures she stated that she will have jerking of extremities she will have urinary incontinence sometimes and may be some episodes of tongue bite. She will pass out for a few minutes then she is confused after the episode. She was told she also has POTS syndrome. Some of the workup during this hospital visit consisted of: Initial plasma lactic acid venous 2.4. The sodium is 136, serum glucose is 122, calcium is 8.9, phosphorus is 3.5, magnesium is 1.8, AST ALT is within normal limits TSH is 1.54 CT of the head and cervical spine is reported as no acute intracranial process. No evidence of cervical spine fracture Review of Systems As per HPI. Past Medical History Past Medical History: Rheumatoid Arthritis (RA), Seizure Disorder Additional Past Medical History / Comment(s): Autonomic dysfunction. Lopez History of Any Multi-Drug Resistant Organisms: Other MDRO Date of last positivie culture/infection: 2023 MDRO Source:: kidney- E. Coli Past Surgical History: Tubal Ligation Additional Past Surgical History / Comment(s): left shoulder surgery in 2018 Past Psychological History: ADD/ADHD, Anxiety, Bipolar Smoking Status: Vaper Past Alcohol Use History: None Reported Past Drug Use History: None Reported Medications and Allergies Home Medications Medication Instructions Recorded Confirmed Type Dextroamphetamine/Amphetamine 30 mg PO BID 02/23/24 03/15/24 History [Adderall] clonazePAM [KlonoPIN] 1 mg PO BID PRN 02/23/24 03/15/24 History Fludrocortisone [Florinef] 0.1 mg PO DAILY 03/06/24 03/15/24 History Gabapentin 600 mg PO BID 03/06/24 03/15/24 History Levonorgestrel/Ethinyl Estradiol 1 tab PO DAILY 03/06/24 03/15/24 History 0.15mg-30mcg Ziprasidone [Geodon] 40 mg PO BID 03/06/24 03/15/24 History lamoTRIgine 150 mg PO HS 03/06/24 03/15/24 History Dicyclomine [Bentyl] 20 mg PO QID 03/15/24 03/15/24 History Allergies Allergy/AdvReac Type Severity Reaction Status Date / Time pantoprazole [From Protonix] Allergy Rash/Hives Verified 03/15/24 17:31 trazodone Allergy Rash/Hives Verified 03/15/24 17:31 Physical Examination - Vital Signs Vital Signs: Vital Signs Temp Pulse Pulse Resp BP BP Pulse Ox 03/16/24 14:32 98.3 F 92 16 88/52 95 03/16/24 14:00 16 03/16/24 12:56 12 03/16/24 07:00 97.9 F 74 16 101/66 99 03/16/24 02:00 97.8 F 89 18 102/69 99 03/15/24 23:50 98.3 F 90 18 105/72 99 03/15/24 22:58 98.3 F 94 18 106/86 97 03/15/24 21:46 98 18 110/75 98 03/15/24 18:40 99 16 113/79 99 03/15/24 17:28 102 H 16 106/74 97 Intake and Output 03/16/24 03/16/24 03/16/24 06:59 14:59 22:59 Other: # Voids 1 2 Weight 63.503 kg General: Lying in bed and is not in acute distress. Neuro: Patient is awake alert oriented to self place and time. Is following simple commands. No aphasia The pupils are about 4 mm round and reactive to light. Visual morris are full to confrontation. Extraocular movement is somewhat limited because of her cooperation. Normal facial sensation to touch. No facial weakness. No dysarth maria isabel The motor the strength in the uppers are 5 out of 5. In the lowers is limited because of pain but had antigravity. Normal tone and bulk Sensation: [place] she had decree sensation over the left side Cerebellar is normal [id number]. Reflexes 2 positive Plantars are mute. Results - Laboratory Findings CBC and BMP: 03/16/24 03:55 03/16/24 03:55 Abnormal Lab Findings: Abnormal Labs 03/15/24 03/15/24 03/15/24 14:50 14:50 14:50 RBC Hgb Hct PT 9.7 L Sodium 136 L Carbon Dioxide 21 L BUN/Creatinine Ratio Glucose 122 H POC Glucose (mg/dL) Plasma Lactic Acid Uri 2.4 H* Total Protein Urine Blood Ur Squamous Epith Cells Urine Mucus 03/16/24 03/16/24 03/16/24 03:55 03:55 05:30 RBC 3.98 L Hgb 11.9 L Hct 36.0 L PT Sodium Carbon Dioxide BUN/Creatinine Ratio 11.67 L Glucose POC Glucose (mg/dL) Plasma Lactic Acid Uri Total Protein 6.0 L Urine Blood Moderate H Ur Squamous Epith Cells 7 H Urine Mucus Rare H 03/16/24 12:56 RBC Hgb Hct PT Sodium Carbon Dioxide BUN/Creatinine Ratio Glucose POC Glucose (mg/dL) 127 H Plasma Lactic Acid Uri Total Protein Urine Blood Ur Squamous Epith Cells Urine Mucus Assessment and Plan Assessment: This is a 29-year-old woman with history of seizure, bipolar who moved from [place] to [place] about 3 weeks ago and she states that she has not been on Keppra since financial reason and does not have a neurologist presents because of syncopal spells with questionable seizure-like activity. Recurrent Syncopal spells seems due to multifactorial some could be because of her seizure-like activity since the patient is not on her Keppra which she states was helping as well as I feel it is functional due to her psychiatric condition History of seizure History of bipolar History of Crohn's disease History of POTS syndrome Plan: Patient is on Lamictal 150 mg daily for her bipolar and that is resumed. Patient was started on Keppra 1000 mg every 12 hours. She was given Keppra 500 mg once in the ED. She was also given Ativan 2 mg once early in the morning for her seizure-like activity by the primary team. She is on gabapentin 600 mg twice daily medication which is weak antiseizure medication. An EEG is ordered and preliminary is negative for any seizures. Seizure precautions seizure pads [place] DMV because a seizure/syncope to avoid driving for 6-month from the last episode, avoid heights, avoid swimming assisted or using heavy missionary. Psychiatry is consulted Will defer the rest of the medical management to primary and other specialist Addendum: Patient did continue to have further episode of unresponsiveness and I notified the primary team to transfer her for long-term EEG she was rejected because of her insurance. Psychiatry has increased her Lamictal from 150 mg daily to 100 mg twice daily. Time with Patient: Greater than 30
[2024-03-16] MEDS: LACTATED RINGERS 1,000 ML IV ONE (18:13)
--- NOTE | 2024-03-16 18:13 | CA ---
Transthoracic Echo Report Name: Lor Swann Age: 29 Gender: F : 1995 Exam Date: 03/16/2024 08:55 Exam Location: [place] [facility] Ht (in): 62 Wt (lb): 140 Ordering Physician: Mitzi Scanlon MD Attending/Referring Phys: Station Usher Tere Lubin RDCS Procedure CPT: Indications: syncopal episode Cardiac Hx: Technical Quality: Good Contrast 1: Total Dose (mL): Contrast 2: Total Dose (mL): MEASUREMENTS (Male / Female) Normal Values 2D ECHO LV Diastolic Diameter PLAX 4.0 cm 4.2 - 5.9 / 3.9 - 5.3 cm LV Systolic Diameter PLAX 3.2 cm IVS Diastolic Thickness 1.1 cm 0.6 - 1.0 / 0.6 - 0.9 cm LVPW Diastolic Thickness 1.0 cm 0.6 - 1.0 / 0.6 - 0.9 cm LV Relative Wall Thickness 0.5 RV Internal Dim ED PLAX 2.5 cm LA Systolic Diameter LX 3.2 cm 3.0 - 4.0 / 2.7 - 3.8 cm LV Diastolic Volume MOD 4C 80.7 cm??? LV Systolic Volume MOD 4C 41.2 cm??? LV Ejection Fraction MOD 4C 48.9 % LV Cardiac Index MOD 4C 1998.5 cm???/min???m??? LV Diastolic Length 4C 7.8 cm LV Systolic Length 4C 6.5 cm LV Diastolic Volume MOD 2C 55.3 cm??? LV Systolic Volume MOD 2C 24.7 cm??? LV Ejection Fraction MOD 2C 55.4 % LV Cardiac Index MOD 2C 1550.5 cm???/min???m??? LV Diastolic Length 2C 7.3 cm LV Systolic Length 2C 5.9 cm LA Volume 44.0 cm??? 18 - 58 / 22 - 52 cm??? LA Volume Index 26.2 cm???/m??? 16 - 28 cm???/m??? M-MODE Aortic Root Diameter MM 3.2 cm AV Cusp Separation MM 2.0 cm DOPPLER AV Peak Velocity 122.4 cm/s AV Peak Gradient 6.0 mmHg MV Area PHT 3.9 cm??? Mitral E Point Velocity 98.7 cm/s Mitral A Point Velocity 65.3 cm/s Mitral E to A Ratio 1.5 MV Deceleration Time 192.5 ms FINDINGS Left Ventricle Left ventricular ejection fraction is estimated at 60-65 %. Left ventricular cavity size normal. Left ventricular wall thickness normal. Right Ventricle Normal right ventricular size and function. Right Atrium Normal right atrial size. No right atrial thrombus or mass seen. Left Atrium Normal left atrial size. No left atrial thrombus or mass present. Mitral Valve Structurally normal mitral valve. No mitral stenosis, regurgitation or prolapse. Aortic Valve Trileaflet aortic valve. No aortic valve stenosis or regurgitation. Tricuspid Valve Structurally normal tricuspid valve. No tricuspid stenosis, regurgitation or prolapse. Pulmonic Valve Structurally normal pulmonic valve. Trace pulmonic regurgitation. Pericardium No pericardial or pleural effusion. Aorta Normal size aortic root and proximal ascending aorta. CONCLUSIONS LVEF 60% No significant regional wall motion abnormality No significant valvular dysfunction No significant chamber size abnormality Previewed by: Dr Portillo Centeno (Electronically Signed) Final Date: 16 March 2024 18:13
[2024-03-16] MEDS: lamoTRIgine 100 MG TAB PO SCH (20:45)
[2024-03-16] MEDS ORDERED: lamoTRIgine 100 MG TAB PO SCH (21:00)
[2024-03-17] MEDS: HYDROcodone/APAP 5-325MG 1 EACH TAB PO STA (01:54)
--- NOTE | 2024-03-17 03:55 | EEG ---
ELECTROENCEPHALOGRAM REPORT CLINICAL HISTORY: This is a 29-year-old woman with history of seizure, bipolar, who presented to the emergency department because of syncopal episode. The video EEG is obtained to evaluate for seizure epileptiform activity. RELEVANT MEDICATION: Ativan, Lamictal, gabapentin, and Keppra. EEG TYPE: This is a routine 21 channel EEG with video using the 10/20 electrode placement system. DESCRIPTION: Wakefulness and drowsiness are obtained. During awake state, the posterior-dominant rhythm consists of 11 hertz activity that is well modulated and well sustained. There is no physiological stage 2 sleep architecture. There is no focal slowing. Interictal and ictal is seen suspicious that the patient has face reversal over the C4 as well as spikes over the right central region. There is no seizure noted during the study, but the patient was noted by the seafood technology specialist to have shaken around 4 minutes into the study and she has body shaken, eye fluttering, arm shaken, and this lasted for 5 minutes, but background did not reveal any seizure. The background was about 11 hertz activity with moderate diffuse myogenic artifact. ACTIVATION PROCEDURE: Photic stimulation was aborted since the patient could not tolerate at 6 hertz activity. There is no abnormality during the photic stimulation. Hyperventilation is not performed. CLINICAL INTERPRETATION: This is an abnormal routine EEG. The background is normal. There are suspicious right central discharges. The patient's episode of body shaken, unresponsiveness that was captured during this EEG is nonepileptic in nature. Otherwise, no seizure is noted during the study. Clinical correlation is recommended indication. MMHECTOR / LENNYN: [id number] /
[2024-03-17 07:14] LABS: Basophils % (A) 0 %; Eosinophils # (A) 0.1 k/uL (0-0.7); Eosinophils % (A) 2 %; HCT 36.4 % (34.0-46.0); HGB 12.1 gm/dL (11.4-16.0); Lymphocytes # (A) 1.9 k/uL (1.0-4.8); Lymphocytes % (A) 28 %; MCH 29.6 pg (25.0-35.0); MCHC 33.4 g/dL (31.0-37.0); MCV 88.6 fL (80.0-100.0); Monocytes # (A) 0.3 k/uL (0-1.0); Monocytes % (A) 5 %; Neutrophils # (A) 4.2 k/uL (1.3-7.7); Neutrophils % (A) 64 %; Platelet Count 280 k/uL (150-450); RBC 4.11 m/uL (3.80-5.40); RDW 12.3 % (11.5-15.5); WBC 6.6 k/uL (3.8-10.6)
[2024-03-17 07:44] LABS: African American GFR (CKD) >90 (>60 ml/min/1.73 sqM); Anion Gap 4 mmol/L; Blood Urea Nitrogen 8 mg/dL (7-17); Calcium 8.7 mg/dL (8.4-10.2); Carbon Dioxide 26 mmol/L (22-30); Chloride 106 mmol/L (98-107); Glucose 84 mg/dL (74-99); Non-African American GFR(CKD) >90 (>60 ml/min/1.73 sqM); Potassium 4.2 mmol/L (3.5-5.1); Sodium 136 mmol/L (137-145)
[2024-03-17 11:06] LABS: Urine Alcohol Negative (Negative); Urine Barbiturate Negative (Negative); Urine Cocaine Negative (Negative); Urine Methadone Negative (Negative); Urine Opiates Negative (Negative); Urine Phencyclidine Negative (Negative)
[2024-03-17] MEDS: KETOROLAC 15 MG/ML 1 ML VIAL IVP SCH (11:58)
--- NOTE | 2024-03-17 12:54 | P.DS ---
Providers Date of admission: 03/15/24 16:45 Expected date of discharge: 03/17/24 Attending physician: Davey Anne MD Consults: 03/15/24 16:44 Consult Physician Routine Consulting Provider: Yasmani Valdez Consult Reason/Comments: sz Do you want consulting provider notified?: Yes Consult Physician Routine Consulting Provider: Angela Ramirez Consult Reason/Comments: MURPHY,syncope Do you want consulting provider notified?: Yes 03/15/24 16:47 Consult Physician Routine Consulting Provider: Juanjo Davis Consult Reason/Comments: ams Do you want consulting provider notified?: Yes Primary care physician: Stated None Hospital Course: Discharge Diagnosis: Epilepsy Nonepileptic seizures Recurrent syncope Bipolar disorder Generalized anxiety disorder History of ADHD History of POTS History of Crohn's disease History of seronegative rheumatoid arthritis Hospital Course: 29-year-old female with PMH of POTs, crohns disease, seronegative rheumatoid arthritis, and ?seizure disorder who presents for syncope, altered mental status, and left hip pain. Patient initially went to another hospital but was unhappy with the service so went home and decided to come to our ER. WBC 7.7, hemoglobin 8.1, MCV 99.4, PT 9.7, sodium 136 bicarb 21, glucose 122, plasma lactic acid pain 2.4->1.2, troponin less than 0.012, BNP less than 20, and TSH 1.54. -EKG done in the ER showed heart rate of 94 bpm, no ST segment elevation or depression seen, no T-wave inversions seen. Sinus rhythm with QTc of 402 ms. -ER CXR: No acute cardiopulmonary disease/process. -ER CT Head/C-spine: No acute intracranial process and no evidence of cervical spine fracture. -ER hip x-ray: No evidence for acute process, mild hip osteoarthrosis. Patient was started on Keppra. Neurology consulted. EEG showed suspicious right central discharges, and also had episode of nonepileptic seizures during EEG. Psychiatry consulted, Lamictal increased. Cardiology consulted. Echocardiogram did not show any valvular abnormalities. LVEF 60 to 65%. Patient being discharged on increased dose of Lamictal and Keppra. Follow-up outpatient with neurology. Patient seen and examined at bedside. Vital signs reviewed and stable. General: Nontoxic, no distress, appears at stated age Derm: Warm, dry Head: Atraumatic, normocephalic, symmetric Eyes: EOMI, no lid lag, anicteric sclera Mouth: No lip lesion, mucus membranes moist Cardiovascular: S1S2 reg, no murmur Lungs: CTA bilateral, no rhonchi, no rales, no accessory muscle use Abdominal: Soft, nontender to palpation, no guarding, no appreciable organomegaly Ext: No gross muscle atrophy, no edema, no contractures Neuro: CN II-XI grossly intact, no focal neuro deficits Psych: Alert, oriented, appropriate affect A total of 36 minutes of time were spent preparing this complex discharge summary. Patient was discharged on 03/17/2024 at 1236. Patient Condition at Discharge: Stable Plan - Discharge Summary New Discharge Prescriptions: New lamoTRIgine [LaMICtal] 100 mg PO BID #90 tab levETIRAcetam [Keppra] 1,000 mg PO Q12HR #120 tab Continue Fludrocortisone [Florinef] 0.1 mg PO DAILY Levonorgestrel/Ethinyl Estradiol 0.15mg-30mcg 1 tab PO DAILY Dicyclomine [Bentyl] 20 mg PO QID clonazePAM [KlonoPIN] 1 mg PO BID PRN PRN Reason: Anxiety Dextroamphetamine/Amphetamine [Adderall] 30 mg PO BID Ziprasidone [Geodon] 40 mg PO BID Gabapentin 600 mg PO BID Discontinued lamoTRIgine 150 mg PO HS Discharge Medication List Dextroamphetamine/Amphetamine [Adderall] 30 mg PO BID 02/23/24 [History] clonazePAM [KlonoPIN] 1 mg PO BID PRN 02/23/24 [History] Fludrocortisone [Florinef] 0.1 mg PO DAILY 03/06/24 [History] Gabapentin 600 mg PO BID 03/06/24 [History] Levonorgestrel/Ethinyl Estradiol 0.15mg-30mcg 1 tab PO DAILY 03/06/24 [History] Ziprasidone [Geodon] 40 mg PO BID 03/06/24 [History] Dicyclomine [Bentyl] 20 mg PO QID 03/15/24 [History] lamoTRIgine [LaMICtal] 100 mg PO BID #90 tab 03/17/24 [Rx] levETIRAcetam [Keppra] 1,000 mg PO Q12HR #120 tab 03/17/24 [Rx] Follow up Appointment(s)/Referral(s): [facility] [NON-STAFF] - 1 Week Gerardo Seymour DO [STAFF PHYSICIAN] - 1 Week Patient Instructions/Handouts: Seizure/Epilepsy Discharge Instructions & Follow-Up Activity/Diet/Wound Care/Special Instructions: Please see PCP and neurology. Per [place] law, no use of heavy machinery or driving for 6 months. Discharge/Stand Alone Forms: Outpatient Counseling Discharge Disposition: HOME SELF-CARE
--- NOTE | 2024-03-17 13:11 | P.PN ---
Subjective Progress Note Date: 03/17/24 HISTORY OF PRESENT ILLNESS: This is a 29-year-old female with a past medical history significant for ADD, anxiety, bipolar disorder, nicotine dependence in the form of vaping, seizure disorder, and POTS. Patient states that she just moved here from [place] and has not established with a manager editorial. We have been asked to see the patient in consultation for syncope. Patient examined at the bedside. An A-team was calling this morning due to possible seizure activity. Patient was given Ativan and is lethargic at the time of examination. The patient does have a history of seizures. Patient also reports that she passes out " all the time". Apparently, the patient was recently at [facility] and had a seizure in the [facility] and had an episode of urinary incontinence. The patient denies any prev ious cardiac history except for POTS. She currently denies any chest pain or pressure. Denies any shortness of breath. DIAGNOSTICS: - EKG reveals sinus mechanism with no signs of acute ischemia - Chest xray negative for acute process - Laboratory data: WBC 8.85. Hemoglobin 11.9. Platelet count 303. Sodium 138. Potassium 4.8. BUN 10.5. Creatinine 0.9. - Current home cardiac medications include Florinef 0.1 mg daily - No previous echocardiogram, stress test, or cardiac catheterization available for review 03/17/24 Patient seen and examined. Patient states she is still feeling a little dizzy. She is also complaining of headache, joint pain, neck pain. No chest pain. She is eating well on current diet. Echocardiogram reveals EF of 60 to 65% with no valvular abnormalities. Report on the echocardiogram reviewed with the patient. Blood pressure 118/80, heart rate 104, pulse ox 98 % on room air. Repeat blood work reveals hemoglobin 12.1. Sodium 136, creatinine 0.82. PHYSICAL EXAM: VITAL SIGNS: Reviewed. GENERAL: Well-developed in no acute distress. HEENT: Head is normocephalic. Pupils are equal, round. Sclerae anicteric. Mucous membranes of the mouth are moist. Neck supple. No JVD or thyromegaly LUNGS: Respirations even and unlabored. Lungs essentially clear to auscultation bilaterally. HEART: Regular rate and rhythm. S1 and S2 heard. ABDOMEN: Soft. Nondistended. Nontender. EXTREMITIES: Normal range of motion. No clubbing or cyanosis. Peripheral pulses intact. No lower extremity edema NEUROLOGIC: Slightly lethargic as patient just received Ativan ASSESSMENT: Reported syncope Possible seizure activity History of POTS History of seizure disorder Anxiety History of ADD History of bipolar disorder Nicotine dependence in the form of vaping PLAN: Patients symptoms do not appear to be cardiac in nature Patient is cleared for discharge from cardiology Cardiology will sign off this case and follow on an as-needed basis. Please reconsult for any new concerns. Patient may follow-up in the office in one to 2 weeks. Nurse practitioner note has been reviewed by physician. Signing provider agrees with the documented findings, assessment, and plan of care documented by FINANCIAL INSTITUTION PRESIDENT as a scribe. Objective - Vital Signs Vital signs: Vital Signs Temp 98.0 F 03/17/24 11:56 Pulse 104 H 03/17/24 11:56 Resp 17 03/17/24 11:56 BP 118/80 03/17/24 11:56 Pulse Ox 98 03/17/24 11:56 FiO2 Intake & Output 03/16/24 03/17/24 03/17/24 18:59 06:59 18:59 Output Total 400 Balance -400 Weight 70.5 kg Output: Urine 400 Other: Voiding Method Toilet Toilet # Voids 2 1 - Labs CBC & Chem 7: 03/17/24 06:48 03/17/24 06:48 Labs: Abnormal Lab Results - Last 24 Hours (Table) 03/16/24 03/17/24 Range/Units 12:56 06:48 Sodium 136 L (137-145) mmol/L POC Glucose (mg/dL) 127 H (70-110) mg/dL
--- NOTE | 2024-03-17 14:51 | P.PN ---
Subjective Progress Note Date: 03/17/24 I am following-up with patient and she feels she is doing better today. She states she is not getting the pain medication as frequent per primary team instruction. Yesterday I was notified at night that patient had seizure-like activity when she did not get pain medication. Objective - Vital Signs Vital signs: Vital Signs Temp 98.0 F 03/17/24 11:56 Pulse 104 H 03/17/24 11:56 Resp 17 03/17/24 11:56 BP 118/80 03/17/24 11:56 Pulse Ox 98 03/17/24 11:56 FiO2 Intake & Output 03/16/24 03/17/24 03/17/24 18:59 06:59 18:59 Output Total 400 Balance -400 Weight 70.5 kg Output: Urine 400 Other: Voiding Method Toilet Toilet # Voids 2 1 1 - Exam General: Lying in bed and is not in acute distress. Neuro: The patient is awake, alert, oriented to self, place and time. Is following simple commands. No aphasia. No facial weakness. No dysathria. Motor: Strength is 5/5 throughout. Some of the workup during this hospital visit consisted of: Initial plasma lactic acid venous 2.4. The sodium is 136, serum glucose is 122, calcium is 8.9, phosphorus is 3.5, magnesium is 1.8, AST ALT is within normal limits TSH is 1.54 CT of the head and cervical spine is reported as no acute intracranial process. No evidence of cervical spine fracture Routine EEG: The background is normal. There are suspicious right central discharges. The episode of body shaking, unresponsiveness that was captured during the EEG is nonepileptic in nature. Otherwise no seizures noted during the study. - Labs CBC & Chem 7: 03/17/24 06:48 03/17/24 06:48 Labs: Abnormal Lab Results - Last 24 Hours (Table) 03/17/24 Range/Units 06:48 Sodium 136 L (137-145) mmol/L Assessment and Plan Assessment: This is a 29-year-old woman with history of seizure, bipolar who moved from [place] to [place] about 3 weeks ago and she states that she has not been on Keppra since financial reason and does not have a neurologist presents because of syncopal spells with questionable seizure-like activity. Recurrent Syncopal spells seems due to multifactorial some could be because of her seizure-like activity since the patient is not on her Keppra which she states was helping as well as I feel it is functional due to her psychiatric condition. Her EEG shows suspicious right central discharges but her episodes of unresponsiveness and shaking is nonepileptic in nature. It seems she has pain seeking and having seizure once she does not received it--today she is doing better. History of seizure History of bipolar History of Crohn's disease History of POTS syndrome Plan: Lamictal was modified by psychiatry team from 150mg qhs to 100mg bid for her bipolar. But lamictal also has antiseizure benefit. Patient was started on Keppra 1000 mg every 12 hours. She was given Keppra 500 mg once in the ED. She was also given Ativan 2 mg once early in the morning for her seizure-like activity by the primary team. She is on gabapentin 600 mg twice daily medication which is weak antiseizure medication. Recommend a repeat EEG as an outpatient/long-term EEG but again as an outpatient and that should be deferred to her outpatient neurologist. Seizure precautions seizure pads Per [facility] because a seizure/syncope to avoid driving for 6-month from the last episode, avoid heights, avoid swimming assisted or using heavy missionary. Psychiatry is consulted Will defer the rest of the medical management to primary and other specialist Upon discharge recommend the patient to follow-up with a neurologist as an o utpatient within 2 weeks Plan discussed with the patient and the primary attending. There is no further neurological workup. Will sign off. Please reconsult if needed Time with Patient: Less than 30
[2024-03-17 16:22] VITALS: RESP 16
[2024-03-17] MEDS: LORATADINE 10 MG TAB PO STA (17:43)
[2024-03-18 08:21] VITALS: TEMP 98.3
[2024-03-18] MEDS: HYDROcodone/APAP 5-325MG 1 EACH TAB PO PRN (10:39)
[2024-03-18 12:09] VITALS: BP 126/81; PULSE 103
--- NOTE | 2024-03-18 14:20 | P.DS ---
Providers Date of admission: 03/15/24 16:45 Expected date of discharge: 03/18/24 Attending physician: Davey Anne MD Consults: 03/15/24 16:44 Consult Physician Routine Consulting Provider: Angela Rmairez Consult Reason/Comments: MURPHY,syncope Do you want consulting provider notified?: Yes Consult Physician Routine Consulting Provider: Yasmani Valdez Consult Reason/Comments: sz Do you want consulting provider notified?: Yes 03/15/24 16:47 Consult Physician Routine Consulting Provider: Juanjo Davis Consult Reason/Comments: ams Do you want consulting provider notified?: Yes Primary care physician: Stated None Hospital Course: Discharge Diagnosis: Epilepsy Nonepileptic seizures Recurrent syncope Bipolar disorder Generalized anxiety disorder History of ADHD History of POTS History of Crohn's disease History of seronegative rheumatoid arthritis Hospital Course: 29-year-old female with PMH of POTs, crohns disease, seronegative rheumatoid arthritis, and ?seizure disorder who presents for syncope, altered mental status, and left hip pain. Patient initially went to another hospital but was unhappy with the service so went home and decided to come to our ER. WBC 7.7, hemoglobin 8.1, MCV 99.4, PT 9.7, sodium 136 bicarb 21, glucose 122, plasma lactic acid pain 2.4->1.2, troponin less than 0.012, BNP less than 20, and TSH 1.54. -EKG done in the ER showed heart rate of 94 bpm, no ST segment elevation or depression seen, no T-wave inversions seen. Sinus rhythm with QTc of 402 ms. -ER CXR: No acute cardiopulmonary disease/process. -ER CT Head/C-spine: No acute intracranial process and no evidence of cervical spine fracture. -ER hip x-ray: No evidence for acute process, mild hip osteoarthrosis. Patient was started on Keppra. Neurology consulted. EEG showed suspicious right central discharges, and also had episode of nonepileptic seizures during EEG. Psychiatry consulted, Lamictal increased. Cardiology consulted. Echocardiogram did not show any valvular abnormalities. LVEF 60 to 65%. Patient being discharged on increased dose of Lamictal and Keppra. Follow-up outpatient with neurology. Patient seen and examined at bedside. Vital signs reviewed and stable. General: Nontoxic, no distress, appears at stated age Derm: Warm, dry Head: Atraumatic, normocephalic, symmetric Eyes: EOMI, no lid lag, anicteric sclera Mouth: No lip lesion, mucus membranes moist Cardiovascular: S1S2 reg, no murmur Lungs: CTA bilateral, no rhonchi, no rales, no accessory muscle use Abdominal: Soft, nontender to palpation, no guarding, no appreciable organomegaly Ext: No gross muscle atrophy, no edema, no contractures Neuro: CN II-XI grossly intact, no focal neuro deficits Psych: Alert, oriented, appropriate affect A total of 36 minutes of time were spent preparing this complex discharge summary. Patient was discharged on 03/18/2024 at 1239. Patient Condition at Discharge: Stable Plan - Discharge Summary New Discharge Prescriptions: New lamoTRIgine [LaMICtal] 100 mg PO BID #90 tab levETIRAcetam [Keppra] 1,000 mg PO Q12HR #120 tab Continue Levonorgestrel/Ethinyl Estradiol 0.15mg-30mcg 1 tab PO DAILY Dicyclomine [Bentyl] 20 mg PO QID Fludrocortisone [Florinef] 0.1 mg PO DAILY #30 tab clonazePAM [KlonoPIN] 1 mg PO BID PRN PRN Reason: Anxiety Dextroamphetamine/Amphetamine [Adderall] 30 mg PO BID Ziprasidone [Geodon] 40 mg PO BID Gabapentin 600 mg PO BID Discontinued lamoTRIgine 150 mg PO HS Discharge Medication List Dextroamphetamine/Amphetamine [Adderall] 30 mg PO BID 02/23/24 [History] clonazePAM [KlonoPIN] 1 mg PO BID PRN 02/23/24 [History] Gabapentin 600 mg PO BID 03/06/24 [History] Levonorgestrel/Ethinyl Estradiol 0.15mg-30mcg 1 tab PO DAILY 03/06/24 [History] Ziprasidone [Geodon] 40 mg PO BID 03/06/24 [History] Dicyclomine [Bentyl] 20 mg PO QID 03/15/24 [History] lamoTRIgine [LaMICtal] 100 mg PO BID #90 tab 03/17/24 [Rx] levETIRAcetam [Keppra] 1,000 mg PO Q12HR #120 tab 03/17/24 [Rx] Fludrocortisone [Florinef] 0.1 mg PO DAILY #30 tab 03/18/24 [Rx] Follow up Appointment(s)/Referral(s): [facility] [NON-STAFF] - 1 Week Gerardo Seymuor DO [STAFF PHYSICIAN] - 1 Week Saud Killian MD [STAFF PHYSICIAN] - 1 Week Patient Instructions/Handouts: Seizure/Epilepsy Discharge Instructions & Follow-Up Activity/Diet/Wound Care/Special Instructions: Please see PCP and neurology. Per [place] law, no use of heavy machinery or driving for 6 months. Discharge/Stand Alone Forms: Outpatient Counseling Discharge Disposition: HOME SELF-CARE
== END 2024-03-18 13:46 | disposition home or self-care (01) | DRG 101 ==
LOC: EC 14:50 → 6NMEDSUR 16:45 → OBSVTOIN 16:45 → 6NMEDSUR 20:01 → 3SCARD 03-16 16:26
PROVIDERS: ADMIT Internal Medicine; ATTEND Internal Medicine
DX: G40.909 Epilepsy, unspecified, not intractable, without status epilepticus (principal); K50.90 Crohn's disease, unspecified, without complications; E87.20 Acidosis, unspecified; G90.A Postural orthostatic tachycardia syndrome [POTS]; R55 Syncope and collapse; F31.9 Bipolar disorder, unspecified; F41.1 Generalized anxiety disorder; F90.9 Attention-deficit hyperactivity disorder, unspecified type; M16.12 Unilateral primary osteoarthritis, left hip; E86.0 Dehydration; G89.29 Other chronic pain; F17.290 Nicotine dependence, other tobacco product, uncomplicated; F12.10 Cannabis abuse, uncomplicated; M06.9 Rheumatoid arthritis, unspecified; Z87.19 Personal history of other diseases of the digestive system; Z88.8 Allergy status to other drugs, medicaments and biological substances; Z88.6 Allergy status to analgesic agent; Z56.0 Unemployment, unspecified
CPT/HCPCS: 36415; 70450; 71045; 72125; 73502; 80048; 80053; 80306; 81001; 83605; 83735; 83880; 84100; 84443; 84484; 85025; 85610; 85730; 87636; 93005; 93306; 94760; 95819; 96361; 96374; 96375; 96376; 99285

== ENCOUNTER 2024-03-25 17:18 | Emergency (ER) | payer OTHER ==
[2024-03-25] MEDS: KETOROLAC 15 MG/ML 1 ML VIAL IVP STA (18:11)
[2024-03-25] MEDS: SODIUM CHLORIDE 0.9% 1,000 ML IV STA (18:11)
[2024-03-25] MEDS: HYDROmorphone 0.5 MG/0.5 ML SYRINGE IVP STA (18:12)
[2024-03-25] MEDS: levETIRAcetam IV 500 MG/5 ML VIAL IVP STA (18:15)
[2024-03-25 18:19] LABS: Basophils # (A) 0.1 k/uL (0-0.2); Basophils % (A) 1 %; Eosinophils # (A) 0.2 k/uL (0-0.7); Eosinophils % (A) 2 %; HCT 38.2 % (34.0-46.0); HGB 13.3 gm/dL (11.4-16.0); Lymphocytes # (A) 1.8 k/uL (1.0-4.8); Lymphocytes % (A) 23 %; MCH 30.9 pg (25.0-35.0); MCHC 34.9 g/dL (31.0-37.0); MCV 88.4 fL (80.0-100.0); Monocytes # (A) 0.4 k/uL (0-1.0); Monocytes % (A) 5 %; Neutrophils # (A) 5.5 k/uL (1.3-7.7); Neutrophils % (A) 69 %; Platelet Count 303 k/uL (150-450); RBC 4.32 m/uL (3.80-5.40); RDW 12.1 % (11.5-15.5)
[2024-03-25 18:28] LABS: ALT 19 U/L (4-34); AST 20 U/L (14-36); African American GFR (CKD) 88 (>60 ml/min/1.73 sqM); Alkaline Phosphatase 63 U/L (38-126); Anion Gap 3 mmol/L; Blood Urea Nitrogen 14 mg/dL (7-17); Calcium 9.1 mg/dL (8.4-10.2); Carbon Dioxide 26 mmol/L (22-30); Chloride 107 mmol/L (98-107); Glucose 90 mg/dL (74-99); Non-African American GFR(CKD) 76 (>60 ml/min/1.73 sqM); Potassium 3.8 mmol/L (3.5-5.1); Sodium 136 mmol/L (137-145); Total Bilirubin 0.4 mg/dL (0.2-1.3); Total Protein 6.8 g/dL (6.3-8.2)
[2024-03-25 18:50] LABS: INR 0.9 (<1.2); Partial Thromboplastin Time 25.5 sec (22.0-30.0); Prothrombin Time 10.3 sec (10.0-12.5)
--- NOTE | 2024-03-25 18:56 | XR ---
EXAMINATION TYPE: XR chest 2V DATE OF EXAM: 03/25/2024 6:46 PM COMPARISON: Chest radiographs from 03/15/2024 CLINICAL INDICATION: Female, 29 years old with history of syncope; TECHNIQUE: XR chest 2V Frontal and lateral views of the chest. FINDINGS: Lungs/Pleura: There is no evidence of pleural effusion, focal consolidation, or pneumothorax. Pulmonary vascularity: Unremarkable. Heart/mediastinum: Cardiomediastinal silhouette is unremarkable. Musculoskeletal: No acute osseous pathology. IMPRESSION: No acute cardiopulmonary disease/process. [facility], , 03/25/2024 6:53 PM
--- NOTE | 2024-03-25 19:03 | CT ---
EXAMINATION TYPE: CT brain wo con DATE OF EXAM: 03/25/2024 6:58 PM COMPARISON: . CLINICAL INDICATION: Female, 29 years old with history of syncope, possible seizure TECHNIQUE: Brain: Axial CT images of the brain were obtained with coronal and sagittal reformats created and rev iewed. Contrast used: None. Oral contrast used: None. CT DLP: 1088 mGycm, Automated exposure control for dose reduction was used. FINDINGS: Brain: Extra-axial spaces: No abnormal extra-axial fluid collections. Ventricular system: Within normal limits Cerebral parenchyma: No acute intraparenchymal hemorrhage or mass effect. The panchal-white junction is well differentiated. Cerebellum: Unremarkable. Mass effect: No evidence of midline shift. Intracranial vasculature: unremarkable Soft tissues: Normal. Calvarium/osseous structures: No depressed skull fracture. Paranasal sinuses and mastoid air cells: Mild scattered paranasal sinus disease. Visualized orbits: Orbital contents are intact. IMPRESSION: No acute intracranial process. [facility], , 03/25/2024 7:00 PM
--- NOTE | 2024-03-25 20:26 | ED ---
General Adult HPI - General Chief complaint: Fall Stated complaint: syncope Time Seen by Provider: 03/25/24 17:40 Source: patient, RN notes reviewed, old records reviewed Mode of arrival: wheelchair Limitations: no limitations - History of Present Illness Initial comments: 29-year-old female presents emergency department with multiple nonspecific complaints. Has been seen multiple times in our department over the last month for abdominal pain, as well as having a history of seizures. Patient presented upfront and believes she passed out. No seizure activity in triage. Was placed in a bed in the hallway. Currently states she is uncertain what happened. Feels weak all over. Unknown if she hit her head or loss consciousness. Compl aining for chronic pain. Presents for further evaluation. States her abdominal pain may believe she has Crohn's disease and is waiting for outpatient follow- up. Patient is also looking for refill on her Bentyl prescription which is next up with her pain. No obvious acute complaints otherwise presents for further evaluation.Patient unknown if she had a seizure. Is currently not postictal. States she has been compliant with all medications. - Related Data Home Medications Medication Instructions Recorded Confirmed Dextroamphetamine/Amphetamine 30 mg PO BID 02/23/24 03/15/24 [Adderall] clonazePAM [KlonoPIN] 1 mg PO BID PRN 02/23/24 03/15/24 Gabapentin 600 mg PO BID 03/06/24 03/15/24 Levonorgestrel/Ethinyl Estradiol 1 tab PO DAILY 03/06/24 03/15/24 0.15mg-30mcg Ziprasidone [Geodon] 40 mg PO BID 03/06/24 03/15/24 Dicyclomine [Bentyl] 20 mg PO QID 03/15/24 03/15/24 Previous Rx's Medication Instructions Recorded lamoTRIgine [LaMICtal] 100 mg PO BID #90 tab 03/17/24 levETIRAcetam [Keppra] 1,000 mg PO Q12HR #120 tab 03/17/24 Fludrocortisone [Florinef] 0.1 mg PO DAILY #30 tab 03/18/24 Dicyclomine [Bentyl] 20 mg PO QID PRN 5 Days #20 tablet 03/25/24 Allergies Allergy/AdvReac Type Severity Reaction Status Date / Time pantoprazole [From Protonix] Allergy Rash/Hives Verified 03/15/24 17:31 trazodone Allergy Rash/Hives Verified 03/15/24 17:31 Review of Systems ROS Statement: Those systems with pertinent positive or pertinent negative responses have been documented in the HPI. Review of Systems: CONST: Denies fever EYES: Denies blurry vision ENT: Denies nasal congestion C/V: Denies Chest pain RESP: Denies shortness of breath GI: Endorses abdominal pain : Denies dysuria SKIN: Denies rash. MSK: Endorses generalized body pain NEURO: Denies headache ROS Other: All systems not noted in ROS Statement are negative. Past Medical History Past Medical History: Rheumatoid Arthritis (RA), Seizure Disorder Additional Past Medical History / Comment(s): Autonomic dysfunction. Lopez History of Any Multi-Drug Resistant Organisms: Other MDRO Date of last positivie culture/infection: 2023 MDRO Source:: kidney- E. Coli Past Surgical History: Tubal Ligation Additional Past Surgical History / Comment(s): left shoulder surgery in 2018 Past Psychological History: ADD/ADHD, Anxiety, Bipolar Smoking Status: Vaper Past Alcohol Use History: None Reported Past Drug Use History: None Reported General Exam - General Exam Comments Initial Comments: General: Appears in no acute distress. HEAD: Normal with no signs of head trauma. EYES: PERRLA, EOMI, conjunctiva normal, no discharge. 3 mm and equal bilaterally. ENT: Hearing grossly intact, normal oropharynx. RESPIRATORY: Clear breath sounds bilaterally. No wheezes, rales, or rhonchi. C/V: Regular rate and rhythm. S1 and S2 auscultated, no edema, peripheral pulses 2+ and intact throughout ABD: Soft, nondistended. Over exaggerated response to palpation with pain. No obvious focal pain. No guarding or rebound tenderness. EXT: Normal range of motion, no obvious deformity. No obvious focal deficits or obvious injuries. SKIN: No rashes or lesions observed on exposed skin. NEURO: Alert and oriented x 4. Cranial nerves II-XII intact. No focal sensory or strength deficits. GCS of 15. Limitations: no limitations Course Vital Signs 03/25/24 03/25/24 17:22 20:28 Temperature 97.7 F 97.9 F Pulse Rate 98 94 Respiratory 18 17 Rate Blood Pressure 129/88 119/78 O2 Sat by Pulse 98 98 Oximetry Medical Decision Making - Medical Decision Making Was pt. sent in by a medical professional or institution (NIKKI Frances, [employer] CONS[employer]ANT, urgent care, hospital, or retirement...) When possible be specific @ -No Did you speak to anyone other than the patient for history (EMS, parent, family, police, friend...)? What history was obtained from this source @ -No Did you review nursing and triage notes (agree or disagree)? Why? @ -I reviewed and agree with nursing and triage notes Were old charts reviewed (outside hosp., previous admission, EMS record, old EKG, old radiological studies, urgent care reports/EKG's, retirement records)? Report findings @ -Reviewed prior visits from this month which resulted in multiple visits for abdominal pain as well as syncopal episodes, similar to complaint from today. Differential Diagnosis (chest pain, altered mental status, abdominal pain women, abdominal pain men, vaginal bleeding, weakness, fever, dyspnea, syncope, headache, dizziness, GI bleed, back pain, seizure, CVA, palpatations, mental health, musculoskeletal)? @ -Differential abdominal pain limit EKG interpreted by me (3pts min.). @ -As above X-rays interpreted by me (1pt min.). @ -X-ray reveals no obvious acute cardiopulmonary process. CT interpreted by me (1pt min.). @ -CT brain reveals no obvious acute intracranial process or injury. U/S interpreted by me (1pt. min.). @ -None done What testing was considered but not performed or refused? (CT, X-rays, U/S, labs)? Why? @ -None What meds were considered but not given or refused? Why? @ -None Did you discuss the management of the patient with other professionals (professionals i.e. NIKKI Frances, [employer] CONSULTANT, lab, RT, psych nurse, social media developer, taxicab starter, teacher, career services officer, rn field case manager)? Give summary @ -No Was smoking cessation discussed for >3mins.? @ -No Was critical care preformed (if so, how long)? @ -No Were there social determinants of health that impacted care today? How? (Homelessness, low income, unemployed, alcoholism, drug addiction, transportation, low edu. Level, literacy, decrease access to med. care, retirement, rehab)? @ -No Was there de-escalation of care discussed even if they declined (Discuss DNR or withdrawal of care, Hospice)? DNR status @ -No What co-morbidities impacted this encounter? (DM, HTN, Smoking, COPD, CAD, Cancer, CVA, ARF, Chemo, Hep., AIDS, mental health diagnosis, sleep apnea, morbid obesity)? @ -Chronic abdominal pain likely secondary to autoimmune or Crohn's disease. This is per the patient. Seizure disorder. POTS. Was patient admitted / discharged? Hospital course, mention meds given and route, prescriptions, significant lab abnormalities, going to OR and other pertinent info. @ -Patient presents for a syncopal episode in triage. She is uncertain if she had a seizure. She is not postictal. We will obtain generalized workup. She be given IV fluids, analgesia medications. Patient was in agreement this plan. She is complaining of chronic pain. Similar to prior evaluations and presentations when I saw her. Imaging unremarkable. EKG unremarkable. Laboratory studies all within acceptable limits. Still pending urine. On reevaluation, patient is feeling proved and wanted to go home. I believe this is reasonable. She will be given a new prescription for her Bentyl as well as a starter pack Tylenol 3's. Recommended follow-up with GI. She will be given contact info. She was in agreement this plan. Lactic acid was normal which makes seizure unlikely for the patient. I instructed the patient to follow up with their PCP in the next 1-3 days. I explained that the patient should return to the emergency department if they exp erience any worsening symptoms. Strict return precautions were discussed with the patient. The patient expressed understanding of these instructions. I answered all questions that the patient had. The patient was discharged home in good condition with their prescriptions and follow up information. Undiagnosed new problem with uncertain prognosis? @ -No Drug Therapy requiring intensive monitoring for toxicity (Heparin, Nitro, Insulin, Cardizem)? @ -No Were any procedures done? @ -No Diagnosis/symptom? @ -Syncope, chronic abdominal pain Acute, or Chronic, or Acute on Chronic? @ -Acute Uncomplicated (without systemic symptoms) or Complicated (systemic symptoms)? @ -Uncomplicated Side effects of treatment? @ -No Exacerbation, Progression, or Severe Exacerbation? @ -No Poses a threat to life or bodily function? How? (Chest pain, [place], [place], pneumonia, PE, COPD, DKA, ARF, appy, cholecystitis, CVA, Diverticulitis, Homicidal, Suicidal, threat to staff... and all critical care pts) @ -Unlikely at this time - Lab Data Result diagrams: 03/25/24 18:03 03/25/24 18:03 Lab Results 03/25/24 03/25/24 03/25/24 Range/Units 18:03 18:03 18:03 WBC 8.0 (3.8-10.6) k/uL RBC 4.32 (3.80-5.40) m/uL Hgb 13.3 (11.4-16.0) gm/dL Hct 38.2 (34.0-46.0) % MCV 88.4 (80.0-100.0) fL MCH 30.9 (25.0-35.0) pg MCHC 34.9 (31.0-37.0) g/dL RDW 12.1 (11.5-15.5) % Plt Count 303 (150-450) k/uL MPV 7.0 Neutrophils % 69 % Lymphocytes % 23 % Monocytes % 5 % Eosinophils % 2 % Basophils % 1 % Neutrophils # 5.5 (1.3-7.7) k/uL Lymphocytes # 1.8 (1.0-4.8) k/uL Monocytes # 0.4 (0-1.0) k/uL Eosinophils # 0.2 (0-0.7) k/uL Basophils # 0.1 (0-0.2) k/uL PT 10.3 (10.0-12.5) sec INR 0.9 (<1.2) APTT 25.5 (22.0-30.0) sec Sodium 136 L (137-145) mmol/L Potassium 3.8 (3.5-5.1) mmol/L Chloride 107 (98-107) mmol/L Carbon Dioxide 26 (22-30) mmol/L Anion Gap 3 mmol/L BUN 14 (7-17) mg/dL Creatinine 1.00 (0.52-1.04) mg/dL Est GFR (CKD-EPI)AfAm 88 (>60 ml/min/1.73 sqM) Est GFR (CKD-EPI)NonAf 76 (>60 ml/min/1.73 sqM) Glucose 90 (74-99) mg/dL Plasma Lactic Acid Uri (0.7-2.0) mmol/L Calcium 9.1 (8.4-10.2) mg/dL Magnesium 2.0 (1.6-2.3) mg/dL Total Bilirubin 0.4 (0.2-1.3) mg/dL AST 20 (14-36) U/L ALT 19 (4-34) U/L Alkaline Phosphatase 63 (38-126) U/L Total Protein 6.8 (6.3-8.2) g/dL Albumin 4.0 (3.5-5.0) g/dL 03/25/24 Range/Units 18:03 WBC (3.8-10.6) k/uL RBC (3.80-5.40) m/uL Hgb (11.4-16.0) gm/dL Hct (34.0-46.0) % MCV (80.0-100.0) fL MCH (25.0-35.0) pg MCHC (31.0-37.0) g/dL RDW (11.5-15.5) % Plt Count (150-450) k/uL MPV Neutrophils % % Lymphocytes % % Monocytes % % Eosinophils % % Basophils % % Neutrophils # (1.3-7.7) k/uL Lymphocytes # (1.0-4.8) k/uL Monocytes # (0-1.0) k/uL Eosinophils # (0-0.7) k/uL Basophils # (0-0.2) k/uL PT (10.0-12.5) sec INR (<1.2) APTT (22.0-30.0) sec Sodium (137-145) mmol/L Potassium (3.5-5.1) mmol/L Chloride (98-107) mmol/L Carbon Dioxide (22-30) mmol/L Anion Gap mmol/L BUN (7-17) mg/dL Creatinine (0.52-1.04) mg/dL Est GFR (CKD-EPI)AfAm (>60 ml/min/1.73 sqM) Est GFR (CKD-EPI)NonAf (>60 ml/min/1.73 sqM) Glucose (74-99) mg/dL Plasma Lactic Acid Uri 1.2 (0.7-2.0) mmol/L Calcium (8.4-10.2) mg/dL Magnesium (1.6-2.3) mg/dL Total Bilirubin (0.2-1.3) mg/dL AST (14-36) U/L ALT (4-34) U/L Alkaline Phosphatase (38-126) U/L Total Protein (6.3-8.2) g/dL Albumin (3.5-5.0) g/dL - EKG Data -: EKG Interpreted by Me EKG Comments: 12-lead Electrocardiogram Interpretation Note EKG was reviewed and interpreted by myself. 12-lead ECG performed at 1808 is interpreted by me as revealing tachycardia at a rate of 101 beats per minute. Mccoll is normal. NC interval is 143 ms, QRS duration is 97 ms, QTc is 3 to 98 ms.. There were no ST or T wave abnormalities to suggest myocardial ischemia or injury. R wave progression across the precordium was satisfactory. By my interpretation this EKG is non-diagnostic for acute ischemia. Disposition Clinical Impression: Chronic pain, Syncope Disposition: HOME SELF-CARE Condition: Good Additional Instructions: Follow-up with GI regarding chronic abdominal pain. Continue with home medications. Return if any worsening symptoms. Prescriptions: Dicyclomine [Bentyl] 20 mg PO QID PRN 5 Days #20 tablet PRN Reason: Pain Is patient prescribed a controlled substance at d/c from ED?: No Referrals: None,Stated [Primary Care Provider] - 1-2 days Nohemi Killian MD [STAFF PHYSICIAN] - 1-2 days Forms: Area PCPs Time of Disposition: 20:25
[2024-03-25 20:34] VITALS: BP 119/78; PULSE 94; RESP 17; TEMP 97.9
[2024-03-25] MEDS: ACET/COD 300 MG/30 MG STARTER PACK 6 TAB BTL PO STA (20:39)
== END 2024-03-25 20:43 | disposition home or self-care (01) ==
LOC: EC 17:18
DX: G89.29 Other chronic pain (principal); R55 Syncope and collapse; F17.290 Nicotine dependence, other tobacco product, uncomplicated; Z88.8 Allergy status to other drugs, medicaments and biological substances
CPT/HCPCS: 36415; 93005; 80053; 83605; 83735; 85025; 85610; 85730; 71046; 70450; 99284; 96374; 96375 ×2; 96361 ×2; J1953; J1885; J1171

== ENCOUNTER 2024-04-06 20:04 | Emergency (ER) | payer OTHER ==
[2024-04-06 20:33] VITALS: RESP 18
[2024-04-06] MEDS: DICYCLOMINE 10 MG CAP PO STA (21:52)
[2024-04-06] MEDS: KETOROLAC 15 MG/ML 1 ML VIAL IVP STA (21:53)
[2024-04-06] MEDS: SODIUM CHLORIDE 0.9% 1,000 ML IV STA (21:53)
[2024-04-06] MEDS: ONDANSETRON 4 MG/2 ML VIAL IVP STA (21:54)
[2024-04-06 22:46] LABS: Basophils # (A) 0.1 k/uL (0-0.2); Basophils % (A) 1 %; Eosinophils # (A) 0.2 k/uL (0-0.7); Eosinophils % (A) 2 %; HGB 14.3 gm/dL (11.4-16.0); Lymphocytes # (A) 2.8 k/uL (1.0-4.8); Lymphocytes % (A) 28 %; MCH 29.8 pg (25.0-35.0); MCHC 33.4 g/dL (31.0-37.0); MCV 89.2 fL (80.0-100.0); Mean Platelet Volume 7.3; Monocytes # (A) 0.7 k/uL (0-1.0); Monocytes % (A) 6 %; Neutrophils # (A) 6.3 k/uL (1.3-7.7); Neutrophils % (A) 62 %; Platelet Count 294 k/uL (150-450); RBC 4.82 m/uL (3.80-5.40); RDW 12.1 % (11.5-15.5); WBC 10.1 k/uL (3.8-10.6)
[2024-04-06 23:18] LABS: ALT 16 U/L (4-34); AST 20 U/L (14-36); African American GFR (CKD) >90 (>60 ml/min/1.73 sqM); Albumin 4.6 g/dL (3.5-5.0); Alkaline Phosphatase 62 U/L (38-126); Amylase 79 U/L (30-110); Anion Gap 9 mmol/L; Appearance,Urine Cloudy (Clear); Bacteria,Urine Occasional /hpf; Bilirubin,Urine Negative (Negative); Blood Urea Nitrogen 18 mg/dL (7-17); Blood,Urine Small (Negative); Budding Yeast,Urine Rare /hpf; Calcium 9.4 mg/dL (8.4-10.2); Calcium Oxalate Crystals,Urine Occasional /hpf; Carbon Dioxide 21 mmol/L (22-30); Chloride 108 mmol/L (98-107); Color,Urine Light Yellow; Glucose 74 mg/dL (74-99); Glucose,Urine (UA) Negative (Negative); Ketones,Urine Negative (Negative); Leukocyte Esterase,Urine Small (Negative); Lipase 115 U/L (23-300); Mucus,Urine Rare /hpf; Nitrite,Urine Negative (Negative); Non-African American GFR(CKD) 90 (>60 ml/min/1.73 sqM); Potassium 3.8 mmol/L (3.5-5.1); Protein,Urine Negative (Negative); RBC,Urine 8 /hpf (0-5); Sodium 138 mmol/L (137-145); Specific Gravity,Urine 1.032 (1.001-1.035); Squamous Epithelial Cell,Urine 11 /hpf (0-4); Total Bilirubin 0.4 mg/dL (0.2-1.3); Total Protein 7.5 g/dL (6.3-8.2); Urobilinogen,Urine <2.0 mg/dL (<2.0); WBC,Urine 2 /hpf (0-5)
--- NOTE | 2024-04-06 23:52 | CT ---
EXAMINATION TYPE: CT abdomen pelvis w con DATE OF EXAM: 04/06/2024 HISTORY: Patient reports she has Crohn's and "needs her stomach medicine". CT DLP: 674.5mGycm Automated Exposure Control for Dose Reduction was Utilized. CONTRAST: CT scan of the abdomen and pelvis is performed with IV Contrast, patient injected with 100 Ml mL of I sovue 300. COMPARISON: Prior CT March 06, 2024 FINDINGS: LUNG BASES: New linear atelectasis in the right middle lobe. LIVER/GB: Contracted gallbladder on current study. PANCREAS: No significant abnormality is seen. SPLEEN: No significant abnormality is seen. ADRENALS: No significant abnormality is seen. KIDNEYS: Symmetric cortical medullary uptake and excretion without hydronephrosis seen bilaterally. BOWEL: Suboptimal evaluation without enteric contrast. No abnormal small or large bowel dilatation is seen on current study.. UTERUS/ADNEXA: Anteverted Uterus. Small to moderate amount of free fluid in pelvis axial image 73. LYMPH NODES: No greater than 1cm abdominal or pelvic lymph nodes are appreciated. OSSEOUS STRUCTURES: No significant abnormality is seen. OTHER: No significant additional abnormality is seen. IMPRESSION: No bowel obstruction. No significant new or acute finding is seen to account for patient' s clinical symptoms. Small to moderate amount of free fluid in the pelvic cul-de-sac is nonspecific f inding similar to prior. [facility], , 04/06/2024 11:50 PM
--- NOTE | 2024-04-07 00:18 | ED ---
Recheck HPI - General Chief Complaint: Recheck/Abnormal Lab/Rx Stated Complaint: abd pain, eye issue Time Seen by Provider: 04/06/24 20:46 Source: patient Mode of arrival: wheelchair Limitations: no limitations - History of Present Illness Initial Comments: 29-year-old female presenting with multiple complaints. She is requesting medication refills. She is complaining of abdominal pain, she has history of Crohn's disease and states that she "needs her stomach medicine". She is unsure what her medication is, states that she has an empty bottle in her backpack that her friend will show me, this is Bentyl. She also reports that she needs an ointment for her eye. She has dry skin around both of her eyes. She is having no pain to the globe itself, no discharge or redness of the eye. She has had this in the past and used desonide ointment. She also states that she has seizure disorder, she is in a hallway bed and is complaining about the bright lights, she essentially refuses to open her eyes as she believes it will cause a seizure. She is having no chest pain, difficulty breathing, fever, chills, vomiting, hematochezia, melena, numbness, tingling, weakness. - Related Data Home Medications Medication Instructions Recorded Confirmed Dextroamphetamine/Amphetamine 30 mg PO BID 02/23/24 03/15/24 [Adderall] clonazePAM [KlonoPIN] 1 mg PO BID PRN 02/23/24 03/15/24 Gabapentin 600 mg PO BID 03/06/24 03/15/24 Levonorgestrel/Ethinyl Estradiol 1 tab PO DAILY 03/06/24 03/15/24 0.15mg-30mcg Ziprasidone [Geodon] 40 mg PO BID 03/06/24 03/15/24 Dicyclomine [Bentyl] 20 mg PO QID 03/15/24 03/15/24 Previous Rx's Medication Instructions Recorded lamoTRIgine [LaMICtal] 100 mg PO BID #90 tab 03/17/24 levETIRAcetam [Keppra] 1,000 mg PO Q12HR #120 tab 03/17/24 Fludrocortisone [Florinef] 0.1 mg PO DAILY #30 tab 03/18/24 Dicyclomine [Bentyl] 20 mg PO QID PRN 5 Days #20 tablet 03/25/24 Desonide [Desonide 0.05%] 1 applic TOPICAL DAILY #59 ml 04/07/24 Dicyclomine [Bentyl] 20 mg PO QID #20 tablet 04/07/24 Fludrocortisone [Florinef] 0.1 mg PO DAILY #30 tablet 04/07/24 Allergies Allergy/AdvReac Type Severity Reaction Status Date / Time pantoprazole [From Protonix] Allergy Rash/Hives Verified 04/06/24 20:33 trazodone Allergy Rash/Hives Verified 04/06/24 20:33 Review of Systems ROS Statement: Those systems with pertinent positive or pertinent negative responses have been documented in the HPI. ROS Other: All systems not noted in ROS Statement are negative. Past Medical History Past Medical History: Rheumatoid Arthritis (RA), Seizure Disorder Additional Past Medical History / Comment(s): Autonomic dysfunction. Lopez, crohns History of Any Multi-Drug Resistant Organisms: Other MDRO Date of last positivie culture/infection: 2023 MDRO Source:: kidney- E. Coli Past Surgical History: Tubal Ligation Additional Past Surgical History / Comment(s): left shoulder surgery in 2018 Past Psychological History: ADD/ADHD, Anxiety, Bipolar Smoking Status: Vaper Past Alcohol Use History: None Reported Past Drug Use History: Marijuana General Exam Limitations: no limitations General appearance: alert, in no apparent distress Head exam: Present: atraumatic, normocephalic, normal inspection Eye exam: Present: normal appearance, other (Dry skin to the bilateral eyelids) Neck exam: Present: normal inspection. Absent: meningismus Respiratory exam: Present: normal lung sounds bilaterally. Absent: respiratory distress, wheezes, rales, rhonchi, stridor Cardiovascular Exam: Present: regular rate, normal rhythm, normal heart sounds. Absent: systolic murmur, diastolic murmur, rubs, gallop, clicks GI/Abdominal exam: Present: soft, tenderness (Diffuse). Absent: distended, guarding, rebound, rigid Neurological exam: Present: alert, oriented X3 Expanded Eye Response: (4) open spontaneously Motor Response: (6) obeys commands Verbal Response: (5) oriented Lindsay Total: 15 Psychiatric exam: Present: normal affect, normal mood Skin exam: Present: normal color Course Vital Signs 04/06/24 04/07/24 20:28 00:31 Temperature 98.3 F 98.5 F Pulse Rate 94 90 Respiratory 18 18 Rate Blood Pressure 111/76 105/68 O2 Sat by Pulse 99 100 Oximetry Medical Decision Making - Medical Decision Making Was pt. sent in by a medical professional or institution (, NIKKI, LABORATORY VETERINARIAN, urgent care, hospital, or [facility]...) When possible be specific @ -No Did you speak to anyone other than the patient for history (EMS, parent, family, police, friend...)? What history was obtained from this source @ -Friend Did you review nursing and triage notes (agree or disagree)? Why? @ -I reviewed and agree with nursing and triage notes Were old charts reviewed (outside hosp., previous admission, EMS record, old EKG, old radiological studies, urgent care reports/EKG's, [facility] records)? Report findings @ -Reviewed most recent admission Differential Diagnosis (chest pain, altered mental status, abdominal pain women, abdominal pain men, vaginal bleeding, weakness, fever, dyspnea, syncope, headache, dizziness, GI bleed, back pain, seizure, CVA, palpatations, mental health, musculoskeletal)? @ -MDM Differential Abdominal Pain Women: Appendicitis, Cholecystitis, diverticulosis, ischemic bowel, pancreatitis, hepatitis, UTI, gastroenteritis, AAA, incarcerated hernia, bowel obstruction, constipation, inflammatory bowel, hepatitis, peptic ulcer disease, splenic infarction, perforated viscus, vulvitis, ovarian torsion, PID, kidney stone, placenta abruption... This is not meant to be an all-inclusive list EKG interpreted by me (3pts min.). @ -As above X-rays interpreted by me (1pt min.). @ -None done CT interpreted by me (1pt min.). @ -CT shows no bowel obstruction. No significant new or acute finding is seen to account for the patient's clinical symptoms. Small to moderate amount of free fluid in the pelvic cul-de-sac is nonspecific finding similar to prior. U/S interpreted by me (1pt. min.). @ -None done What testing was considered but not performed or refused? (CT, X-rays, U/S, labs)? Why? @ -None What meds were considered but not given or refused? Why? @ -None Did you discuss the management of the patient with other professionals (professionals i.e. , PA, LABORATORY VETERINARIAN, lab, RT, psych nurse, social media job titles, underwriting director, teacher, stream control officer, registered nurse hh case manager)? Give summary @ -No Was smoking cessation discussed for >3mins.? @ -No Was critical care preformed (if so, how long)? @ -No Were there social determinants of health that impacted care today? How? (Homelessness, low income, unemployed, alcoholism, drug addiction, transportation, low edu. Level, literacy, decrease access to med. care, residential, rehab)? @ -No Was there de-escalation of care discussed even if they declined (Discuss DNR or withdrawal of care, Hospice)? DNR status @ -No What co-morbidities impacted this encounter? (DM, HTN, Smoking, COPD, CAD, Cancer, CVA, ARF, Chemo, Hep., AIDS, mental health diagnosis, sleep apnea, morbid obesity)? @ -Crohn's disease, seizure disorder Was patient admitted / discharged? Hospital course, mention meds given and route, prescriptions, significant lab abnormalities, going to OR and other pertinent info. @ -29-year-old female presenting with abdominal pain. History of Crohn's disease. Also complaining of dry skin to the bilateral eyelids. She is also requesting refills of her medications. History and physical examination are conducted. No leukocytosis or anemia. Urine shows no infection, there are signs of contamination. Negative hCG. CT shows no acute process. Patient's medications are refilled she is educated on today's findings. Discharged. Follow-up with PCP. Report back to ER with any new or worsening symptoms. Discussed return parameters and answered all questions. Patient conveyed verbal understanding and agreed to the plan. I discussed this case in detail with my attending Dr. Montgomery Undiagnosed new problem with uncertain prognosis? @ -No Drug Therapy requiring intensive monitoring for toxicity (Heparin, Nitro, Insulin, Cardizem)? @ -No Were any procedures done? @ -No Diagnosis/symptom? @ -Medication refill Acute, or Chronic, or Acute on Chronic? @ -Acute Uncomplicated (without systemic symptoms) or Complicated (systemic symptoms)? @ -Uncomplicated Side effects of treatment? @ -No Exacerbation, Progression, or Severe Exacerbation? @ -No Poses a threat to life or bodily function? How? (Chest pain, [place], [place], pneumonia, PE, COPD, DKA, ARF, appy, cholecystitis, CVA, Diverticulitis, Homicidal, Suicidal, threat to staff... and all critical care pts) @ -No - Lab Data Result diagrams: 04/06/24 21:45 04/06/24 21:45 Lab Results 04/06/24 04/06/24 04/06/24 Range/Units 21:45 21:45 21:45 WBC 10.1 (3.8-10.6) k/uL RBC 4.82 (3.80-5.40) m/uL Hgb 14.3 (11.4-16.0) gm/dL Hct 43.0 (34.0-46.0) % MCV 89.2 (80.0-100.0) fL MCH 29.8 (25.0-35.0) pg MCHC 33.4 (31.0-37.0) g/dL RDW 12.1 (11.5-15.5) % Plt Count 294 (150-450) k/uL MPV 7.3 Neutrophils % 62 % Lymphocytes % 28 % Monocytes % 6 % Eosinophils % 2 % Basophils % 1 % Neutrophils # 6.3 (1.3-7.7) k/uL Lymphocytes # 2.8 (1.0-4.8) k/uL Monocytes # 0.7 (0-1.0) k/uL Eosinophils # 0.2 (0-0.7) k/uL Basophils # 0.1 (0-0.2) k/uL Sodium (137-145) mmol/L Potassium (3.5-5.1) mmol/L Chloride (98-107) mmol/L Carbon Dioxide (22-30) mmol/L Anion Gap mmol/L BUN (7-17) mg/dL Creatinine (0.52-1.04) mg/dL Est GFR (CKD-EPI)AfAm (>60 ml/min/1.73 sqM) Est GFR (CKD-EPI)NonAf (>60 ml/min/1.73 sqM) Glucose (74-99) mg/dL Plasma Lactic Acid Uri (0.7-2.0) mmol/L Calcium (8.4-10.2) mg/dL Total Bilirubin (0.2-1.3) mg/dL AST (14-36) U/L ALT (4-34) U/L Alkaline Phosphatase (38-126) U/L Total Protein (6.3-8.2) g/dL Albumin (3.5-5.0) g/dL Amylase (30-110) U/L Lipase (23-300) U/L Urine Color Light Yellow Urine Appearance Cloudy H (Clear) Urine pH 7.0 (5.0-8.0) Ur Specific Atkinson 1.032 (1.001-1.035) Urine Protein Negative (Negative) Urine Glucose (UA) Negative (Negative) Urine Ketones Negative (Negative) Urine Blood Small H (Negative) Urine Nitrite Negative (Negative) Urine Bilirubin Negative (Negative) Urine Urobilinogen <2.0 (<2.0) mg/dL Ur Leukocyte Esterase Small H (Negative) Urine RBC 8 H (0-5) /hpf Urine WBC 2 (0-5) /hpf Ur Squamous Epith Cells 11 H (0-4) /hpf Calcium Oxalate Crystal Occasional H (None) /hpf Urine Bacteria Occasional H (None) /hpf Urine Mucus Rare H (None) /hpf Urine Yeast (Budding) Rare H (None) /hpf Urine HCG, Qual Not Detected (Not Detectd) 04/06/24 04/06/24 Range/Units 21:45 21:45 WBC (3.8-10.6) k/uL RBC (3.80-5.40) m/uL Hgb (11.4-16.0) gm/dL Hct (34.0-46.0) % MCV (80.0-100.0) fL MCH (25.0-35.0) pg MCHC (31.0-37.0) g/dL RDW (11.5-15.5) % Plt Count (150-450) k/uL MPV Neutrophils % % Lymphocytes % % Monocytes % % Eosinophils % % Basophils % % Neutrophils # (1.3-7.7) k/uL Lymphocytes # (1.0-4.8) k/uL Monocytes # (0-1.0) k/uL Eosinophils # (0-0.7) k/uL Basophils # (0-0.2) k/uL Sodium 138 (137-145) mmol/L Potassium 3.8 (3.5-5.1) mmol/L Chloride 108 H (98-107) mmol/L Carbon Dioxide 21 L (22-30) mmol/L Anion Gap 9 mmol/L BUN 18 H (7-17) mg/dL Creatinine 0.87 (0.52-1.04) mg/dL Est GFR (CKD-EPI)AfAm >90 (>60 ml/min/1.73 sqM) Est GFR (CKD-EPI)NonAf 90 (>60 ml/min/1.73 sqM) Glucose 74 (74-99) mg/dL Plasma Lactic Acid Uri 1.1 (0.7-2.0) mmol/L Calcium 9.4 (8.4-10.2) mg/dL Total Bilirubin 0.4 (0.2-1.3) mg/dL AST 20 (14-36) U/L ALT 16 (4-34) U/L Alkaline Phosphatase 62 (38-126) U/L Total Protein 7.5 (6.3-8.2) g/dL Albumin 4.6 (3.5-5.0) g/dL Amylase 79 (30-110) U/L Lipase 115 (23-300) U/L Urine Color Urine Appearance (Clear) Urine pH (5.0-8.0) Ur Specific Atkinson (1.001-1.035) Urine Protein (Negative) Urine Glucose (UA) (Negative) Urine Ketones (Negative) Urine Blood (Negative) Urine Nitrite (Negative) Urine Bilirubin (Negative) Urine Urobilinogen (<2.0) mg/dL Ur Leukocyte Esterase (Negative) Urine RBC (0-5) /hpf Urine WBC (0-5) /hpf Ur Squamous Epith Cells (0-4) /hpf Calcium Oxalate Crystal (None) /hpf Urine Bacteria (None) /hpf Urine Mucus (None) /hpf Urine Yeast (Budding) (None) /hpf Urine HCG, Qual (Not Detectd) Disposition Clinical Impression: Medication refill Disposition: HOME SELF-CARE Condition: Good Additional Instructions: Follow-up with PCP, suggestions provided. Report back to ER with any new or worsening symptoms. Use Vaseline around your eyes for the dryness. Prescriptions: Dicyclomine [Bentyl] 20 mg PO QID #20 tablet Desonide [Desonide 0.05%] 1 applic TOPICAL DAILY #59 ml Fludrocortisone [Florinef] 0.1 mg PO DAILY #30 tablet Is patient prescribed a controlled substance at d/c from ED?: No Referrals: None,Stated [Primary Care Provider] - 1-2 days Jett Zaragoza DO [Doctor of Osteopathic Medicine] - 1-2 days Mauro Stevenson MD [STAFF PHYSICIAN] - 1-2 days Patrick Duron MD [STAFF PHYSICIAN] - 1-2 days Time of Disposition: 00:18
[2024-04-07 00:46] VITALS: BP 105/68; PULSE 90; TEMP 98.5
== END 2024-04-07 00:31 | disposition home or self-care (01) ==
LOC: EC 20:04
DX: R10.84 Generalized abdominal pain (principal); Z76.0 Encounter for issue of repeat prescription; G40.909 Epilepsy, unspecified, not intractable, without status epilepticus; K50.90 Crohn's disease, unspecified, without complications; F17.290 Nicotine dependence, other tobacco product, uncomplicated; Z88.8 Allergy status to other drugs, medicaments and biological substances
CPT/HCPCS: 36415; 80053; 82150; 83605; 83690; 85025; 81001; 81025; 74177; 99285; 96374; 96375; 96361; J2405; J1885; Q9967

== ENCOUNTER 2024-04-19 12:24 | Emergency (ER) | payer OTHER ==
[2024-04-19 12:34] VITALS: BP 109/76; PULSE 105; RESP 17; TEMP 97.3
--- NOTE | 2024-04-19 12:48 | ED ---
General Adult HPI - General Chief complaint: Recheck/Abnormal Lab/Rx Stated complaint: med refill Time Seen by Provider: 04/19/24 12:35 Source: patient, RN notes reviewed Mode of arrival: wheelchair Limitations: no limitations - History of Present Illness Initial comments: 29-year-old female presents emergency department chief complaint of medication refill. Patient states that she is switching insurance from [facility] and she cannot have medications covered by her primary care physician currently. She needs medications for her Crohn's, seizure disorder. Patient states she has no current symptoms otherwise. Patient denies fever chills chest pain shortness of breath. - Related Data Home Medications Medication Instructions Recorded Confirmed Dextroamphetamine/Amphetamine 30 mg PO BID 02/23/24 03/15/24 [Adderall] clonazePAM [KlonoPIN] 1 mg PO BID PRN 02/23/24 03/15/24 Gabapentin 600 mg PO BID 03/06/24 03/15/24 Levonorgestrel/Ethinyl Estradiol 1 tab PO DAILY 03/06/24 03/15/24 0.15mg-30mcg Ziprasidone [Geodon] 40 mg PO BID 03/06/24 03/15/24 Dicyclomine [Bentyl] 20 mg PO QID 03/15/24 03/15/24 Previous Rx's Medication Instructions Recorded lamoTRIgine [LaMICtal] 100 mg PO BID #90 tab 03/17/24 Dicyclomine [Bentyl] 20 mg PO QID PRN 5 Days #20 tablet 03/25/24 Desonide [Desonide 0.05%] 1 applic TOPICAL DAILY #59 ml 04/07/24 Dicyclomine [Bentyl] 20 mg PO QID #20 tablet 04/07/24 Fludrocortisone [Florinef] 0.1 mg PO DAILY #30 tablet 04/07/24 Dicyclomine [Bentyl] 20 mg PO QID #40 tablet 04/19/24 Fludrocortisone [Florinef] 0.1 mg PO DAILY #30 tab 04/19/24 levETIRAcetam [Keppra] 1,000 mg PO Q12HR #120 tab 04/19/24 Allergies Allergy/AdvReac Type Severity Reaction Status Date / Time pantoprazole [From Protonix] Allergy Rash/Hives Verified 04/19/24 12:34 trazodone Allergy Rash/Hives Verified 04/19/24 12:34 Review of Systems ROS Statement: Those systems with pertinent positive or pertinent negative responses have been documented in the HPI. ROS Other: All systems not noted in ROS Statement are negative. Past Medical History Past Medical History: Rheumatoid Arthritis (RA), Seizure Disorder Additional Past Medical History / Comment(s): Autonomic dysfunction. Lopez, crohns History of Any Multi-Drug Resistant Organisms: Other MDRO Date of last positivie culture/infection: 2023 MDRO Source:: kidney- E. Coli Past Surgical History: Tubal Ligation Additional Past Surgical History / Comment(s): left shoulder surgery in 2018 Past Psychological History: ADD/ADHD, Anxiety, Bipolar Smoking Status: Vaper Past Alcohol Use History: None Reported Past Drug Use History: Marijuana General Exam Limitations: no limitations General appearance: alert, in no apparent distress Head exam: Present: atraumatic, normocephalic, normal inspection Neck exam: Present: normal inspection, full ROM. Absent: tenderness, meningismus, lymphadenopathy Respiratory exam: Present: normal lung sounds bilaterally. Absent: respiratory distress, wheezes, rales, rhonchi, stridor Cardiovascular Exam: Present: regular rate, normal rhythm, normal heart sounds. Absent: systolic murmur, diastolic murmur, rubs, gallop, clicks GI/Abdominal exam: Present: soft, normal bowel sounds. Absent: distended, tenderness, guarding, rebound, rigid Course Vital Signs 04/19/24 12:30 Temperature 97.3 F L Pulse Rate 105 H Respiratory 17 Rate Blood Pressure 109/76 O2 Sat by Pulse 98 Oximetry Medical Decision Making - Medical Decision Making Was pt. sent in by a medical professional or institution (, PA, STONE DECORATOR, urgent care, hospital, or long term...) When possible be specific @ -No Did you speak to anyone other than the patient for history (EMS, parent, family, police, friend...)? What history was obtained from this source @ -No Did you review nursing and triage notes (agree or disagree)? Why? @ -I reviewed and agree with nursing and triage notes Were old charts reviewed (outside hosp., previous admission, EMS record, old EKG, old radiological studies, urgent care reports/EKG's, long term records)? Report findings @ -No old charts were reviewed Differential Diagnosis (chest pain, altered mental status, abdominal pain women, abdominal pain men, vaginal bleeding, weakness, fever, dyspnea, syncope, headache, dizziness, GI bleed, back pain, seizure, CVA, palpatations, mental health, musculoskeletal)? @ -Medication refill, seizures, Crohn's disease EKG interpreted by me (3pts min.). @ -None X-rays interpreted by me (1pt min.). @ -None done CT interpreted by me (1pt min.). @ -None done U/S interpreted by me (1pt. min.). @ -None done What testing was considered but not performed or refused? (CT, X-rays, U/S, labs)? Why? @ -None What meds were considered but not given or refused? Why? @ -None Did you discuss the management of the patient with other professionals (professionals i.e. , PA, STONE DECORATOR, lab, RT, psych nurse, social services, blacking machine operator, teacher, fisheries officer, case finishing machine adjuster)? Give summary @ -No Was smoking cessation discussed for >3mins.? @ -No Was critical care preformed (if so, how long)? @ -No Were there social determinants of health that impacted care today? How? (Homelessness, low income, unemployed, alcoholism, drug addiction, transportation, low edu. Level, literacy, decrease access to med. care, [facility], rehab)? @ -No Was there de-escalation of care discussed even if they declined (Discuss DNR or withdrawal of care, Hospice)? DNR status @ -No What co-morbidities impacted this encounter? (DM, HTN, Smoking, COPD, CAD, Cancer, CVA, ARF, Chemo, Hep., AIDS, mental health diagnosis, sleep apnea, morbid obesity)? @ -Crohn's disease, Seizures Was patient admitted / discharged? Hospital course, mention meds given and route, prescriptions, significant lab abnormalities, going to OR and other pertinent info. @ -Discharge patient was given medication refill she has an appointment coming up in April with PCP return transfer discussed. Undiagnosed new problem with uncertain prognosis? @ -No Drug Therapy requiring intensive monitoring for toxicity (Heparin, Nitro, Insulin, Cardizem)? @ -No Were any procedures done? @ -No Diagnosis/symptom? @ -Medication refill seizures, Crohn's disease Acute, or Chronic, or Acute on Chronic? @Acute Uncomplicated (without systemic symptoms) or Complicated (systemic symptoms)? @ -Uncomplicated Side effects of treatment? @ -No Exacerbation, Progression, or Severe Exacerbation? @ -No Poses a threat to life or bodily function? How? (Chest pain, [place], [place], pneumonia, PE, COPD, DKA, ARF, appy, cholecystitis, CVA, Diverticulitis, Homicidal, Suicidal, threat to staff... and all critical care pts) @ -No Disposition Clinical Impression: Medication refill, Crohn disease, History of seizure Disposition: HOME SELF-CARE Condition: Stable Additional Instructions: Please return to the Emergency Department if symptoms worsen or any other concerns. Prescriptions: Dicyclomine [Bentyl] 20 mg PO QID #40 tablet Fludrocortisone [Florinef] 0.1 mg PO DAILY #30 tab levETIRAcetam [Keppra] 1,000 mg PO Q12HR #120 tab Is patient prescribed a controlled substance at d/c from ED?: No Referrals: None,Stated [Primary Care Provider] - 1-2 days Time of Disposition: 12:48
== END 2024-04-19 13:13 | disposition home or self-care (01) ==
LOC: EC 12:24
DX: Z76.0 Encounter for issue of repeat prescription (principal); K50.90 Crohn's disease, unspecified, without complications; G40.909 Epilepsy, unspecified, not intractable, without status epilepticus; F17.290 Nicotine dependence, other tobacco product, uncomplicated; Z88.8 Allergy status to other drugs, medicaments and biological substances
CPT/HCPCS: 99282

== ENCOUNTER 2024-05-09 18:41 | Emergency (ER) | payer OTHER ==
[2024-05-09 18:54] VITALS: BP 106/72; PULSE 95; RESP 18; TEMP 98.7
--- NOTE | 2024-05-09 19:19 | ED ---
Recheck HPI - General Chief Complaint: Recheck/Abnormal Lab/Rx Stated Complaint: med refill Time Seen by Provider: 05/09/24 18:59 Source: patient, RN notes reviewed Mode of arrival: wheelchair Limitations: no limitations - History of Present Illness Initial Comments: This is a 29-year-old female who presents to the emergency department for medication refills. Patient recently moved here from [place] and still has her [place] insurance. She is unable to get into a primary care provider locally with this [place] insurance, but states that her new insurance will become active next month. She is requesting refills on some of her medication due to the insurance problems to get her through until next month. Currently requesting refills on her Bentyl, Keppra, Lamictal, and fludrocortisone. Denies any complaints or concerns otherwise. She does note that she has been having some flareup of her Crohn's symptoms in terms of bloating and diarrhea due to being out of the Bentyl for the last couple of days. MD Complaint: medication refill request - Related Data Home Medications Medication Instructions Recorded Confirmed Dextroamphetamine/Amphetamine 30 mg PO BID 02/23/24 03/15/24 [Adderall] clonazePAM [KlonoPIN] 1 mg PO BID PRN 02/23/24 03/15/24 Gabapentin 600 mg PO BID 03/06/24 03/15/24 Levonorgestrel/Ethinyl Estradiol 1 tab PO DAILY 03/06/24 03/15/24 0.15mg-30mcg Ziprasidone [Geodon] 40 mg PO BID 03/06/24 03/15/24 Dicyclomine [Bentyl] 20 mg PO QID 03/15/24 03/15/24 Previous Rx's Medication Instructions Recorded lamoTRIgine [LaMICtal] 100 mg PO BID #90 tab 03/17/24 Dicyclomine [Bentyl] 20 mg PO QID PRN 5 Days #20 tablet 03/25/24 Desonide [Desonide 0.05%] 1 applic TOPICAL DAILY #59 ml 04/07/24 Dicyclomine [Bentyl] 20 mg PO QID #20 tablet 04/07/24 Fludrocortisone [Florinef] 0.1 mg PO DAILY #30 tablet 04/07/24 Dicyclomine [Bentyl] 20 mg PO QID #40 tablet 04/19/24 Fludrocortisone [Florinef] 0.1 mg PO DAILY #30 tab 04/19/24 levETIRAcetam [Keppra] 1,000 mg PO Q12HR #120 tab 04/19/24 Dicyclomine [Bentyl] 20 mg PO QID #60 tablet 05/09/24 Fludrocortisone [Florinef] 0.1 mg PO DAILY #30 tablet 05/09/24 lamoTRIgine [LaMICtal] 100 mg PO BID #60 tab 05/09/24 levETIRAcetam 1,000 mg PO Q12HR #60 tab 05/09/24 Allergies Allergy/AdvReac Type Severity Reaction Status Date / Time pantoprazole [From Protonix] Allergy Rash/Hives Verified 05/09/24 18:51 trazodone Allergy Rash/Hives Verified 05/09/24 18:51 Review of Systems ROS Statement: Those systems with pertinent positive or pertinent negative responses have been documented in the HPI. ROS Other: All systems not noted in ROS Statement are negative. Past Medical History Past Medical History: Rheumatoid Arthritis (RA), Seizure Disorder Additional Past Medical History / Comment(s): Autonomic dysfunction. Lopez, crohns History of Any Multi-Drug Resistant Organisms: Other MDRO Date of last positivie culture/infection: 2023 MDRO Source:: kidney- E. Coli Past Surgical History: Tubal Ligation Additional Past Surgical History / Comment(s): left shoulder surgery in 2018 Past Psychological History: ADD/ADHD, Anxiety, Bipolar Smoking Status: Vaper Past Alcohol Use History: None Reported Past Drug Use History: Marijuana General Exam Limitations: no limitations General appearance: alert, in no apparent distress Head exam: Present: atraumatic, normocephalic, normal inspection Respiratory exam: Present: normal lung sounds bilaterally. Absent: respiratory distress, wheezes, rales, rhonchi, stridor Cardiovascular Exam: Present: regular rate, normal rhythm, normal heart sounds. Absent: systolic murmur, diastolic murmur, rubs, gallop, clicks GI/Abdominal exam: Present: soft, normal bowel sounds. Absent: distended, tenderness, guarding, rebound, rigid Neurological exam: Present: alert, oriented X3, CN II-XII intact Psychiatric exam: Present: normal affect, normal mood Skin exam: Present: warm, dry, intact, normal color. Absent: rash Course Vital Signs 05/09/24 18:51 Temperature 98.7 F Pulse Rate 95 Respiratory 18 Rate Blood Pressure 106/72 O2 Sat by Pulse 98 Oximetry Medical Decision Making - Medical Decision Making This is a 29-year-old female who presents to the emergency department for a medication refill. Was pt. sent in by a medical professional or institution? @ -No Did you speak to anyone other than the patient for history? @ -No Did you review nursing and triage notes? @ -Yes, and I agree, it is accurate with regards to the patient's symptoms. Were old charts reviewed? @ -No Differential Diagnosis? @ -Medication refill, Crohn's flareup, seizure, orthostatic hypotension, this is not meant to be an all-inclusive list. EKG interpreted by me (3pts min.)? @ -Not obtained X-rays interpreted by me (1pt min.)? @ -Not obtained CT interpreted by me (1pt min.)? @ -Not obtained U/S interpreted by me (1pt. min.)? @ -Not obtained What testing was considered but not performed? (CT, X-rays, U/S, labs)? Why? @ -None What meds were considered but not given? Why? @ -None Did you discuss the management of the patient with other professionals? @ -No Did you reconcile home meds? @ -No Was smoking cessation discussed for >3mins.? @ -No Was critical care preformed (if so, how long)? @ -No Were there social determinants of health that impacted care today? How? (Homelessness, low income, unemployed, alcoholism, drug addiction, transportation, low edu. Level, literacy, decrease access to med. care, prison, rehab)? @ -No Was there de-escalation of care discussed even if they declined? (Discuss DNR or withdrawal of care, Hospice)? @ -No What co-morbidities impacted this encounter? (DM, HTN, Smoking, COPD, CAD, Cancer, CVA, Hep., AIDS, mental health diagnosis, sleep apnea, morbid obesity)? @ -Close disease, seizure disorder, rheumatoid arthritis, POTS Was patient admitted / discharged? @ -Discharged. Patient was given refills on the medications requested, including Bentyl, Keppra, Lamictal, and fludrocortisone. She is having problems with [id number] insurance and will be getting her [place] insurance next month. Advised she make sure she is established with a primary care provider at that point to become established for ongoing medication management and refills in the future. Patient discharged home in stable condition. Case discussed with ED attending Dr. Sommers. Return precautions reviewed in depth, the patient is instructed to return to the emergency department with any new, worsening, or concerning symptoms. Patient verbalized understanding. Undiagnosed new problem with uncertain prognosis? @ -None Drug Therapy requiring intensive monitoring for toxicity (Heparin, Nitro, Insulin, Cardizem)? @ -None Were any procedures done? @ -None Diagnosis/symptom? @ -Encounter for medication refills Acute, or Chronic, or Acute on Chronic? @ -Acute Uncomplicated (without systemic symptoms) or Complicated (systemic symptoms)? @ -Uncomplicated Side effects of treatment? @ -None Exacerbation, Progression, or Severe Exacerbation] @ -Not applicable Poses a threat to life or bodily function? @ -No Disposition Clinical Impression: Encounter for medication refill Disposition: HOME SELF-CARE Additional Instructions: Return to the emergency department with any new, worsening, or concerning symptoms. Prescriptions: Dicyclomine [Bentyl] 20 mg PO QID #60 tablet Fludrocortisone [Florinef] 0.1 mg PO DAILY #30 tablet lamoTRIgine [LaMICtal] 100 mg PO BID #60 tab levETIRAcetam 1,000 mg PO Q12HR #60 tab Is patient prescribed a controlled substance at d/c from ED?: No Referrals: None,Stated [Primary Care Provider] - 1-2 days Time of Disposition: 19:19
== END 2024-05-09 19:41 | disposition home or self-care (01) ==
LOC: EC 18:41
DX: Z76.0 Encounter for issue of repeat prescription (principal); G40.909 Epilepsy, unspecified, not intractable, without status epilepticus; M06.9 Rheumatoid arthritis, unspecified; G90.A Postural orthostatic tachycardia syndrome [POTS]; F17.290 Nicotine dependence, other tobacco product, uncomplicated; Z88.8 Allergy status to other drugs, medicaments and biological substances
CPT/HCPCS: 99281

== ENCOUNTER 2024-06-27 07:38 | Emergency (ER) | payer OTHER ==
[2024-06-27 08:18] LABS: Appearance,Urine Cloudy (Clear); Bilirubin,Urine Negative (Negative); Blood,Urine Trace (Negative); Color,Urine Light Yellow; Glucose,Urine (UA) Negative (Negative); Ketones,Urine Negative (Negative); Leukocyte Esterase,Urine Large (Negative); Mucus,Urine Rare /hpf; Nitrite,Urine Negative (Negative); PH, Urine 5.5 (5.0-8.0); Protein,Urine Negative (Negative); RBC,Urine 5 /hpf (0-5); Specific Gravity,Urine 1.016 (1.001-1.035); Squamous Epithelial Cell,Urine 8 /hpf (0-4); Urobilinogen,Urine <2.0 mg/dL (<2.0); WBC,Urine 17 /hpf (0-5)
--- NOTE | 2024-06-27 08:30 | ED ---
Female Urogenital HPI - General Source: patient Mode of arrival: ambulatory Limitations: no limitations - History of Present Illness Last Menstrual Period: 05/28/24 <Álvaro Nielson - Last Filed: 06/27/24 16:38> <Dewayne Lagos - Last Filed: 06/29/24 07:40> - General Chief complaint: Urogenital Stated complaint: cant hold urine, fever, nausea - History of Present Illness Initial comments: Patient is a 29-year-old female with seizure disorder and POTS presented to the emergency room with burning and frequent urination it has been going on for the past week and half. Patient reported that she was here about 2 weeks ago after she fell and broke her tailbone and was found to have bladder infection. She was discharged with antibiotics to finish at home however patient does not remember the name of the antibiotics. Upon review her record, it looks like she was on Keflex 500 mg every 12 hours. Patient reported that she started noticing burning and frequent urination after being on antibiotics for about 3 to 4 days. Symptoms gradually gotten worse. She currently reports that she cannot hold her urine and has been feeling nauseated for the past week. She denies any vomiting. She did report having fever and chills with a Tmax of 102 over the past few days. She also reports her urine has been cloudy for few days with a strong smell along with some mild suprapubic pain. She also reports some chest pain although she thinks it is related to her POTS. Physical exam showed clear to auscultation bilaterally, regular heart rhythm and rate with no murmurs, suprapubic tenderness to palpation and mild bilateral CVA tenderness, no lower extremity edema. (Álvaro Nielson) - Related Data Home Medications Medication Instructions Recorded Confirmed Dextroamphetamine/Amphetamine 30 mg PO BID 02/23/24 03/15/24 [Adderall] clonazePAM [KlonoPIN] 1 mg PO BID PRN 02/23/24 03/15/24 Gabapentin 600 mg PO BID 03/06/24 03/15/24 Levonorgestrel/Ethinyl Estradiol 1 tab PO DAILY 03/06/24 03/15/24 0.15mg-30mcg Ziprasidone [Geodon] 40 mg PO BID 03/06/24 03/15/24 Dicyclomine [Bentyl] 20 mg PO QID 03/15/24 03/15/24 Previous Rx's Medication Instructions Recorded lamoTRIgine [LaMICtal] 100 mg PO BID #90 tab 03/17/24 Dicyclomine [Bentyl] 20 mg PO QID PRN 5 Days #20 tablet 03/25/24 Desonide [Desonide 0.05%] 1 applic TOPICAL DAILY #59 ml 04/07/24 Dicyclomine [Bentyl] 20 mg PO QID #20 tablet 04/07/24 Fludrocortisone [Florinef] 0.1 mg PO DAILY #30 tablet 04/07/24 Dicyclomine [Bentyl] 20 mg PO QID #40 tablet 04/19/24 Fludrocortisone [Florinef] 0.1 mg PO DAILY #30 tab 04/19/24 levETIRAcetam [Keppra] 1,000 mg PO Q12HR #120 tab 04/19/24 Dicyclomine [Bentyl] 20 mg PO QID #60 tablet 05/09/24 Fludrocortisone [Florinef] 0.1 mg PO DAILY #30 tablet 05/09/24 lamoTRIgine [LaMICtal] 100 mg PO BID #60 tab 05/09/24 levETIRAcetam 1,000 mg PO Q12HR #60 tab 05/09/24 Fludrocortisone [Florinef] 0.1 mg PO ONCE #30 tablet 06/03/24 levETIRAcetam [Keppra] 2,000 mg PO Q12HR #120 tab 06/03/24 Cephalexin [Keflex] 500 mg PO Q12HR #20 cap 06/11/24 Sulfamethox-Tmp 800-160Mg [Bactrim 1 tab PO Q12HR 10 Days #20 tab 06/27/24 DS 800-160 mg] Allergies Allergy/AdvReac Type Severity Reaction Status Date / Time pantoprazole [From Protonix] Allergy Rash/Hives Verified 06/27/24 07:52 trazodone Allergy Rash/Hives Verified 06/27/24 07:52 Review of Systems ROS Other: All systems not noted in ROS Statement are negative. Constitutional: Reports: fever, chills Eyes: Reports: as per HPI ENT: Reports: as per HPI Respiratory: Reports: as per HPI Cardiovascular: Reports: as per HPI Endocrine: Reports: as per HPI Gastrointestinal: Reports: abdominal pain, nausea Genitourinary: Reports: urgency, dysuria, frequency Musculoskeletal: Reports: as per HPI Skin: Reports: as per HPI Neurological: Reports: as per HPI Psychiatric: Reports: as per HPI Hematological/Lymphatic: Reports: as per HPI <Álvaro Nielson - Last Filed: 06/27/24 16:38> ROS Other: All systems not noted in ROS Statement are negative. <Dewayne Lagos - Last Filed: 06/29/24 07:40> ROS Statement: Those systems with pertinent positive or pertinent negative responses have been documented in the HPI. Past Medical History Past Medical History: Rheumatoid Arthritis (RA), Seizure Disorder Additional Past Medical History / Comment(s): Autonomic dysfunction. Lopez, crohns History of Any Multi-Drug Resistant Organisms: Other MDRO Date of last positivie culture/infection: 2023 MDRO Source:: kidney- E. Coli Past Surgical History: Tubal Ligation Additional Past Surgical History / Comment(s): left shoulder surgery in 2018 Past Psychological History: ADD/ADHD, Anxiety, Bipolar Smoking Status: Vaper Past Alcohol Use History: None Reported Past Drug Use History: Marijuana <Álvaro Nielson - Last Filed: 06/27/24 16:38> General Exam Limitations: no limitations <Álvaro Nielson - Last Filed: 06/27/24 16:38> - General Exam Comments Initial Comments: GENERAL: This is a 29-year-old in no apparent distress at the time of examination. Pleasant and cooperative. HEENT: Head is atraumatic, normocephalic. RESPIRATORY: Clear to auscultation bilaterally, no wheezing /stridor/rhonchi/crackles CARDIOVASCULAR: Regular rate and rhythm, no systolic or diastolic murmurs GASTROINTESTINAL: Suprapubic tenderness to palpation, diffuse abdominal tenderness to light palpation, no distention MUSCULOSKELETAL: Bilateral CVA tenderness INTEGUMENTARY: No cyanosis. No jaundice. No rashes noted. No cellulitis noted. EXTREMITIES: 2+ peripheral pulses. No evidence of peripheral edema. No calf tenderness noted. NEUROLOGIC: Cranial nerves II-XII intact. PSYCHIATRIC: Awake, alert, and oriented (Álvaro Nielson) Course Vital Signs 06/27/24 06/27/24 07:49 11:48 Temperature 97.5 F L 98.9 F Pulse Rate 109 H 88 Respiratory 20 16 Rate Blood Pressure 105/71 106/70 O2 Sat by Pulse 98 98 Oximetry Medical Decision Making - Lab Data Result diagrams: 06/27/24 09:54 06/27/24 09:54 <Álvaro Nielson - Last Filed: 06/27/24 16:38> - Lab Data Result diagrams: 06/27/24 09:54 06/27/24 09:54 <Dewayne Lagos - Last Filed: 06/29/24 07:40> - Medical Decision Making Was pt. sent in by a medical professional or institution (, NIKKI, CERTIFIED ALCOHOL DRUG COUNSELOR, urgent care, hospital, or fdc...) When possible be specific @ -No Did you speak to anyone other than the patient for history (EMS, parent, family, police, friend...)? What history was obtained from this source @ -No Did you review nursing and triage notes (agree or disagree)? Why? @ -Reviewed and agree with nursing and triage notes Were old charts reviewed (outside hosp., previous admission, EMS record, old EKG, old radiological studies, urgent care reports/EKG's, fdc records)? Report findings @ -Old charts reviewed Differential Diagnosis? @ -Uncomplicated cystitis, pyelonephritis, ovarian cyst, ectopic , appendicitis EKG interpreted by me (3pts min.). @ -None done X-rays interpreted by me (1pt min.). @ -None done CT interpreted by me (1pt min.). @ - CT was negative U/S interpreted by me (1pt. min.). @ -Not done What testing was considered but not performed or refused? (CT, X-rays, U/S, labs)? Why? @ - test was considered however not performed because patient had a history of tubal ligation What meds were considered but not given or refused? Why? @ -Not done Did you discuss the management of the patient with other professionals (professionals i.e. , NIKKI, CERTIFIED ALCOHOL DRUG COUNSELOR, lab, RT, psych nurse, social media project manager, spinner hand, teacher, supervisor dog license officer, pillowcase folder)? Give summary @ -Discussed with Dr. Lagos Was smoking cessation discussed for >3mins.? @ -No Was critical care preformed (if so, how long)? @ -No Were there social determinants of health that impacted care today? How? (Homelessness, low income, unemployed, alcoholism, drug addiction, transportation, low edu. Level, literacy, decrease access to med. care, care home, rehab)? @ -No Was there de-escalation of care discussed even if they declined (Discuss DNR or withdrawal of care, Hospice)? DNR status @ -No What co-morbidities impacted this encounter? (DM, HTN, Smoking, COPD, CAD, Can cer, CVA, ARF, Chemo, Hep., AIDS, mental health diagnosis, sleep apnea, morbid obesity)? @ -Seizure disorder, POTS, Crohn's disease, PCOS Was patient admitted / discharged? Hospital course, mention meds given and route, prescriptions, significant lab abnormalities, going to OR and other pertinent info. @ -Patient was discharged. Patient came in with suprapubic pain that started about 2 weeks ago. CBC, CMP, PT ordered which came back normal. Urinalysis revealed cloudy urine, large leukocyte esterase, positive WBC, negative nitrite. CT abdomen pelvis with contrast was subsequently ordered which showed normal findings. A bolus of normal saline was given. A gram of Rocephin, Zofran, Toradol were given for patient's pain and UTI. Patient reported pain has not resolved upon reassessment. A 4 mg morphine was given for patient's pain. Patient will be discharged with Bactrim to take for the next 10 days. Undiagnosed new problem with uncertain prognosis? @ -No new problems Drug Therapy requiring intensive monitoring for toxicity (Heparin, Nitro, Insulin, Cardizem)? @ -No Were any procedures done? @ -CT abdomen with contrast Diagnosis/symptom? @ -Likely urinary tract infection Acute, or Chronic, or Acute on Chronic? @ -Acute Uncomplicated (without systemic symptoms) or Complicated (systemic symptoms)? @ -Complicated, patient does have tachycardia Side effects of treatment? @ -No Exacerbation, Progression, or Severe Exacerbation? @ -Exacerbation Poses a threat to life or bodily function? How? (Chest pain, [place], OR, pneumonia, PE, COPD, DKA, ARF, appy, cholecystitis, CVA, Diverticulitis, Homicidal, Suicidal, threat to staff... and all critical care pts) @ -No (Álvaro Nielson) I personally saw the patient and performed the critical portion of the service. I discussed the patient care with the dr nielson . I directed management, care planning and final disposition of the patient. This includes, but not limited to, review of all lab work, radiological studies, EKG's, consultations, vital signs, and nursing notes. EKG interpreted by me (3pts min.) @As above X-Rays interpreted by me (1 pt min.) @None CT interpreted by me ( 1pt min.) @CT scan abdomen pelvis interpreted by myself does not reveal acute abnormality U/S interpreted by me (1 pt min.) @None Critical care time of 0 minutes excluding separately billable procedures was spent in conjunction with critical care activities provided by the Resident and Attending simultaneously. I was present during no procedures for all critical portions of the procedure and as immediately available to furnish service during the entire procedure. (Dewayne Lagos) - Lab Data Lab Results 06/27/24 06/27/24 06/27/24 Range/Units 07:50 09:54 09:54 WBC 9.1 (3.8-10.6) k/uL RBC 4.89 (3.80-5.40) m/uL Hgb 14.4 (11.4-16.0) gm/dL Hct 43.8 (34.0-46.0) % MCV 89.5 (80.0-100.0) fL MCH 29.5 (25.0-35.0) pg MCHC 32.9 (31.0-37.0) g/dL RDW 12.0 (11.5-15.5) % Plt Count 326 (150-450) k/uL MPV 7.2 Neutrophils % 72 % Lymphocytes % 18 % Monocytes % 5 % Eosinophils % 4 % Basophils % 0 % Neutrophils # 6.5 (1.3-7.7) k/uL Lymphocytes # 1.6 (1.0-4.8) k/uL Monocytes # 0.5 (0-1.0) k/uL Eosinophils # 0.3 (0-0.7) k/uL Basophils # 0.0 (0-0.2) k/uL PT (10.0-12.5) sec INR (<1.2) APTT (22.0-30.0) sec Sodium 136 L (137-145) mmol/L Potassium 4.6 (3.5-5.1) mmol/L Chloride 99 (98-107) mmol/L Carbon Dioxide 29 (22-30) mmol/L Anion Gap 8 mmol/L BUN 16 (7-17) mg/dL Creatinine 0.91 (0.52-1.04) mg/dL Est GFR (CKD-EPI)AfAm >90 (>60 ml/min/1.73 sqM) Est GFR (CKD-EPI)NonAf 85 (>60 ml/min/1.73 sqM) Glucose 92 (74-99) mg/dL Calcium 9.7 (8.4-10.2) mg/dL Total Bilirubin 0.7 (0.2-1.3) mg/dL AST 20 (14-36) U/L ALT 22 (4-34) U/L Alkaline Phosphatase 78 (38-126) U/L Total Protein 7.4 (6.3-8.2) g/dL Albumin 4.3 (3.5-5.0) g/dL Amylase 66 (30-110) U/L Lipase 80 (23-300) U/L Urine Color Light Yellow Urine Appearance Cloudy H (Clear) Urine pH 5.5 (5.0-8.0) Ur Specific [place] 1.016 (1.001-1.035) Urine Protein Negative (Negative) Urine Glucose (UA) Negative (Negative) Urine Ketones Negative (Negative) Urine Blood Trace H (Negative) Urine Nitrite Negative (Negative) Urine Bilirubin Negative (Negative) Urine Urobilinogen <2.0 (<2.0) mg/dL Ur Leukocyte Esterase Large H (Negative) Urine RBC 5 (0-5) /hpf Urine WBC 17 H (0-5) /hpf Ur Squamous Epith Cells 8 H (0-4) /hpf Urine Mucus Rare H (None) /hpf 06/27/24 Range/Units 09:54 WBC (3.8-10.6) k/uL RBC (3.80-5.40) m/uL Hgb (11.4-16.0) gm/dL Hct (34.0-46.0) % MCV (80.0-100.0) fL MCH (25.0-35.0) pg MCHC (31.0-37.0) g/dL RDW (11.5-15.5) % Plt Count (150-450) k/uL MPV Neutrophils % % Lymphocytes % % Monocytes % % Eosinophils % % Basophils % % Neutrophils # (1.3-7.7) k/uL Lymphocytes # (1.0-4.8) k/uL Monocytes # (0-1.0) k/uL Eosinophils # (0-0.7) k/uL Basophils # (0-0.2) k/uL PT 9.7 L (10.0-12.5) sec INR 0.9 (<1.2) APTT 24.7 (22.0-30.0) sec Sodium (137-145) mmol/L Potassium (3.5-5.1) mmol/L Chloride (98-107) mmol/L Carbon Dioxide (22-30) mmol/L Anion Gap mmol/L BUN (7-17) mg/dL Creatinine (0.52-1.04) mg/dL Est GFR (CKD-EPI)AfAm (>60 ml/min/1.73 sqM) Est GFR (CKD-EPI)NonAf (>60 ml/min/1.73 sqM) Glucose (74-99) mg/dL Calcium (8.4-10.2) mg/dL Total Bilirubin (0.2-1.3) mg/dL AST (14-36) U/L ALT (4-34) U/L Alkaline Phosphatase (38-126) U/L Total Protein (6.3-8.2) g/dL Albumin (3.5-5.0) g/dL Amylase (30-110) U/L Lipase (23-300) U/L Urine Color Urine Appearance (Clear) Urine pH (5.0-8.0) Ur Specific [place] (1.001-1.035) Urine Protein (Negative) Urine Glucose (UA) (Negative) Urine Ketones (Negative) Urine Blood (Negative) Urine Nitrite (Negative) Urine Bilirubin (Negative) Urine Urobilinogen (<2.0) mg/dL Ur Leukocyte Esterase (Negative) Urine RBC (0-5) /hpf Urine WBC (0-5) /hpf Ur Squamous Epith Cells (0-4) /hpf Urine Mucus (None) /hpf Disposition Time of Disposition: 13:00 <Álvaro Nielson - Last Filed: 06/27/24 16:38> Is patient prescribed a controlled substance at d/c from ED?: No <Dewayne Lagos - Last Filed: 06/29/24 07:40> Clinical Impression: Urinary tract infection, Cystitis Narrative: Patient's CT of abdomen pelvis showed unremarkable findings. Patient was subsequently discharged back home with Bactrim to take for the next 10 days. (Sendy,Álvaro) Disposition: HOME SELF-CARE Instructions (If sedation given, give patient instructions): Urinary Tract Infection in Women (ED) Prescriptions: Sulfamethox-Tmp 800-160Mg [Bactrim DS 800-160 mg] 1 tab PO Q12HR 10 Days #20 tab Referrals: Po Hernandez MD [Primary Care Provider] - 1-2 days
[2024-06-27] MEDS: KETOROLAC 15 MG/ML 1 ML VIAL IVP STA (09:53)
[2024-06-27] MEDS: SODIUM CHLORIDE 0.9% 1,000 ML IV STA (09:53)
[2024-06-27] MEDS: ONDANSETRON 4 MG/2 ML VIAL IVP STA (09:54)
[2024-06-27] MEDS: cefTRIAXone IN SWFI 1,000 MG/10 ML SYRINGE IVP STA (09:54)
[2024-06-27 10:14] LABS: Basophils % (A) 0 %; Eosinophils # (A) 0.3 k/uL (0-0.7); Eosinophils % (A) 4 %; HCT 43.8 % (34.0-46.0); HGB 14.4 gm/dL (11.4-16.0); Lymphocytes # (A) 1.6 k/uL (1.0-4.8); Lymphocytes % (A) 18 %; MCH 29.5 pg (25.0-35.0); MCHC 32.9 g/dL (31.0-37.0); MCV 89.5 fL (80.0-100.0); Mean Platelet Volume 7.2; Monocytes # (A) 0.5 k/uL (0-1.0); Monocytes % (A) 5 %; Neutrophils # (A) 6.5 k/uL (1.3-7.7); Neutrophils % (A) 72 %; Platelet Count 326 k/uL (150-450); RBC 4.89 m/uL (3.80-5.40); WBC 9.1 k/uL (3.8-10.6)
[2024-06-27 10:27] LABS: ALT 22 U/L (4-34); AST 20 U/L (14-36); African American GFR (CKD) >90 (>60 ml/min/1.73 sqM); Albumin 4.3 g/dL (3.5-5.0); Alkaline Phosphatase 78 U/L (38-126); Amylase 66 U/L (30-110); Anion Gap 8 mmol/L; Blood Urea Nitrogen 16 mg/dL (7-17); Calcium 9.7 mg/dL (8.4-10.2); Carbon Dioxide 29 mmol/L (22-30); Chloride 99 mmol/L (98-107); Glucose 92 mg/dL (74-99); Lipase 80 U/L (23-300); Non-African American GFR(CKD) 85 (>60 ml/min/1.73 sqM); Potassium 4.6 mmol/L (3.5-5.1); Sodium 136 mmol/L (137-145); Total Bilirubin 0.7 mg/dL (0.2-1.3); Total Protein 7.4 g/dL (6.3-8.2)
[2024-06-27 10:33] LABS: INR 0.9 (<1.2); Partial Thromboplastin Time 24.7 sec (22.0-30.0); Prothrombin Time 9.7 sec (10.0-12.5)
--- NOTE | 2024-06-27 10:45 | CT ---
EXAMINATION TYPE: CT abdomen pelvis w con CT DLP: 813.7 mGycm, Automated exposure control for dose reduction was used. DATE OF EXAM: 06/27/2024 10:40 AM COMPARISON: CT abdomen pelvis 04/06/2024, 03/06/2024 CLINICAL INDICATION:Female, 29 years old with history of abdominal pain; Abdominal pain TECHNIQUE: Standard CT of the abdomen and pelvis following the administration of 100 cc of Isovue 3 00 IV contrast material. Coronal and sagittal reformats were performed. FINDINGS: LOWER CHEST: Minimal posterior dependent subsegmental atelectasis is noted. Linear atelectasis within the right middle lobe. ABDOMEN LIVER: Unremarkable GALLBLADDER AND BILE DUCTS: Unremarkable. PANCREAS: Unremarkable. SPLEEN: Unremarkable. ADRENAL GLANDS: Unremarkable. KIDNEYS AND URETERS: No evidence of hydronephrosis or renal calculus. The kidneys enhance symmetrical ly. Contrast is demonstrated within both collecting systems and proximal ureters on the delayed phase . PELVIS BLADDER: Unremarkable REPRODUCTIVE: Unremarkable. ABDOMEN & PELVIS STOMACH AND BOWEL: Stomach and duodenum are unremarkable. No focal bowel wall thickening or surroundi ng inflammatory changes. The appendix is within normal limits. No evidence of bowel obstruction. PERITONEUM: No evidence of pneumoperitoneum or free fluid. VASCULATURE: No evidence of aortic aneurysm. MUSCULOSKELETAL: No acute osseous abnormalities LYMPH NODES: No evidence for lymphadenopathy. SOFT TISSUE/ABDOMINAL WALL: Unremarkable IMPRESSION: No acute abdominal/pelvic process. [facility] Servando Cavazos, , 06/27/2024 10:43 AM
[2024-06-27] MEDS: MORPHINE SULFATE 4 MG/ML SYRINGE IVP STA (11:28)
[2024-06-27 11:49] VITALS: BP 106/70; PULSE 88; RESP 16; TEMP 98.9
== END 2024-06-27 11:48 | disposition home or self-care (01) ==
LOC: EC 07:38
DX: N30.90 Cystitis, unspecified without hematuria (principal); G40.909 Epilepsy, unspecified, not intractable, without status epilepticus; K50.90 Crohn's disease, unspecified, without complications; G90.A Postural orthostatic tachycardia syndrome [POTS]; E28.2 Polycystic ovarian syndrome; F17.290 Nicotine dependence, other tobacco product, uncomplicated; Z88.8 Allergy status to other drugs, medicaments and biological substances
CPT/HCPCS: 36415; 80053; 82150; 83690; 85025; 85610; 85730; 81001; 87040; 87086; 74177; 99284; 96374; 96375 ×3; 96361; J2270; J2405; J0696; J1885; Q9967

== ENCOUNTER 2024-07-02 22:05 | Observation (INO) | payer OTHER ==
[2024-07-02 22:41] LABS: Amorphous Sediment,Urine Occasional /hpf; Appearance,Urine Cloudy (Clear); Bacteria,Urine Occasional /hpf; Bilirubin,Urine Negative (Negative); Blood,Urine Negative (Negative); Color,Urine Yellow; Glucose,Urine (UA) Negative (Negative); Hyaline Casts,Urine 13 /lpf (0-2); Ketones,Urine 2+ (Negative); Leukocyte Esterase,Urine Large (Negative); Mucus,Urine Many /hpf; Nitrite,Urine Negative (Negative); Protein,Urine 1+ (Negative); RBC,Urine 7 /hpf (0-5); Specific Gravity,Urine 1.044 (1.001-1.035); Squamous Epithelial Cell,Urine 13 /hpf (0-4); Urobilinogen,Urine <2.0 mg/dL (<2.0); WBC,Urine 138 /hpf (0-5)
[2024-07-02] MEDS: LACTATED RINGERS 1,000 ML IV SCH (22:42)
--- NOTE | 2024-07-02 22:53 | ED ---
Recheck HPI - General Chief Complaint: Recheck/Abnormal Lab/Rx Stated Complaint: Urinary Retention Time Seen by Provider: 07/02/24 22:30 Source: patient, RN notes reviewed, old records reviewed Mode of arrival: ambulatory Limitations: no limitations - History of Present Illness Initial Comments: This is a 29-year-old female to the ER today. She presents today for evaluation of multiple complaints abdominal pain nausea kidney pain and decreased urinary output. Patient states she has been on 2 different antibiotics in the past 2 weeks for urinary tract infection and symptoms are been persistent. She does have fevers 1 fever prior to arrival, no prior history of significant UTIs or kidney stones. No vaginal bleeding, denies chance of MD Complaint: needs IV antibiotics Returns Today for: Called Because of Abnormal Lab/Test (Persistent urinary tract infection), persistent/worsening pain related to initial visit Symptoms Since Prior Visit: worsening pain Associated Symptoms: nausea, abdominal pain Treatments Prior to Arrival: Given Antibiotics on - Related Data Home Medications Medication Instructions Recorded Confirmed Dextroamphetamine/Amphetamine 30 mg PO BID@0900,1600 02/23/24 07/03/24 [Adderall] clonazePAM [KlonoPIN] 1 mg PO BID PRN 02/23/24 07/03/24 Ziprasidone [Geodon] 40 mg PO BID 03/06/24 07/03/24 Acetaminophen Tab [Tylenol Tab] 1,000 mg PO Q6HR PRN 07/03/24 07/03/24 Ibuprofen [Motrin Ib] 400 mg PO Q6H PRN 07/03/24 07/03/24 levETIRAcetam [Keppra] 2,000 mg PO BID 07/03/24 07/03/24 Previous Rx's Medication Instructions Recorded lamoTRIgine [LaMICtal] 100 mg PO BID #90 tab 03/17/24 Dicyclomine [Bentyl] 20 mg PO QID #40 tablet 04/19/24 Fludrocortisone [Florinef] 0.1 mg PO DAILY #30 tab 04/19/24 Sulfamethox-Tmp 800-160Mg [Bactrim 1 tab PO Q12HR 10 Days #20 tab 06/27/24 DS 800-160 mg] Allergies Allergy/AdvReac Type Severity Reaction Status Date / Time pantoprazole [From Protonix] Allergy Rash/Hives/Abdominal Verified 07/03/24 11:19 pain trazodone Allergy Rash/Hives/Increased Verified 07/03/24 11:19 Heart Rate Review of Systems ROS Statement: Those systems with pertinent positive or pertinent negative responses have been documented in the HPI. ROS Other: All systems not noted in ROS Statement are negative. Past Medical History Past Medical History: Rheumatoid Arthritis (RA), Seizure Disorder Additional Past Medical History / Comment(s): Autonomic dysfunction. Lopez, crohns, bladder infection since 06-21 History of Any Multi-Drug Resistant Organisms: Other MDRO Date of last positivie culture/infection: 2023 MDRO Source:: kidney- E. Coli Past Surgical History: Tubal Ligation Additional Past Surgical History / Comment(s): left shoulder surgery in 2018 Past Psychological History: ADD/ADHD, Anxiety, Bipolar Smoking Status: Vaper Past Alcohol Use History: None Reported Past Drug Use History: Marijuana General Exam Limitations: no limitations General appearance: alert, in no apparent distress Head exam: Present: atraumatic, normocephalic, normal inspection Eye exam: Present: normal appearance, PERRL, EOMI. Absent: scleral icterus, conjunctival injection, periorbital swelling ENT exam: Present: normal exam, mucous membranes moist Neck exam: Present: normal inspection. Absent: tenderness, meningismus, lymphadenopathy Respiratory exam: Present: normal lung sounds bilaterally. Absent: respiratory distress, wheezes, rales, rhonchi, stridor Cardiovascular Exam: Present: normal rhythm, tachycardia, normal heart sounds. Absent: systolic murmur, diastolic murmur, rubs, gallop, clicks GI/Abdominal exam: Present: soft, normal bowel sounds. Absent: distended, tenderness, guarding, rebound, rigid Extremities exam: Present: normal inspection, full ROM, normal capillary refill. Absent: tenderness, pedal edema, joint swelling, calf tenderness Back exam: Present: normal inspection Neurological exam: Present: alert, oriented X3, CN II-XII intact Psychiatric exam: Present: normal affect, normal mood Skin exam: Present: warm, dry, intact, normal color. Absent: rash Course Vital Signs 07/02/24 07/03/24 22:18 01:40 Temperature 98.1 F Pulse Rate 112 H 103 H Respiratory 20 20 Rate Blood Pressure 119/72 111/64 O2 Sat by Pulse 99 95 Oximetry - Reevaluation(s) Reevaluation #1: 07/02/24 23:14 Medical records reviewed Prior urinary tract infection microbiology reviewed, no culture Reevaluation #2: 07/03/24 01:06 Patient informed of results questions answered Reevaluation #3: 07/03/24 01:06 Patient continues to feel unwell here in the emergency department Reevaluation #4: Was pt. sent in by a medical professional or institution (, PA, DIGITAL MEDIA DESIGNER, urgent care, hospital, or fdc...) When possible be specific @ -no Did you speak to anyone other than the patient for history (EMS, parent, family, police, friend...)? What history was obtained from this source @ -no Did you review nursing and triage notes (agree or disagree)? Why? @ -agree Are old charts reviewed (outside hosp., previous admission, EMS record, old EKG, old radiological studies, urgent care reports/EKG's, fdc records)? Report findings @ -yes Differential Diagnosis (chest pain, altered mental status, abdominal pain women, abdominal pain men, vaginal bleeding, weakness, fever, dyspnea, syncope, headache, dizziness, GI bleed, back pain, seizure, CVA, palpatations, mental health, musculoskeletal)? @ -prior EKG interpreted by me (3pts min.). @ -no X-rays interpreted by me (1pt min.). @ -no CT interpreted by me (1pt min.). @ -yes negative for acute disease U/S interpreted by me (1pt. min.). @ -no What testing was considered but not performed or refused? (CT, X-rays, U/S, labs)? Why? @ -none What meds were considered but not given or refused? Why? @ -none Did you discuss the management of the patient with other professionals (professionals i.e. , NIKKI, DIGITAL MEDIA DESIGNER, lab, RT, psych nurse, social media coordinator, wind tunnel mechanic, teacher, armoured corps officer, case reviewer)? Give summary @ -no Was smoking cessation discussed for >3mins.? @ -no Was critical care preformed (if so, how long)? @ -no Were there social determinants of health that impacted care today? How? (Homelessness, low income, unemployed, alcoholism, drug addiction, transportation, low edu. Level, literacy, decrease access to med. care, shelter, rehab)? @ -none Was there de-escalation of care discussed even if they declined (Discuss DNR or withdrawal of care, Hospice)? DNR status @ -no What co-morbidities impacted this encounter? (DM, HTN, Smoking, COPD, CAD, Cancer, CVA, ARF, Chemo, Hep., AIDS, mental health diagnosis, sleep apnea, morbid obesity)? @ -none Was patient admitted / discharged? Hospital course, mention meds given and route, prescriptions, significant lab abnormalities, going to OR and other pertinent info. @ - 29 female to the ER for evaluation patient presents today for evaluation urinary tract infection failed outpatient treatment will admit for IV antibiotics Admitted Undiagnosed new problem with uncertain prognosis? @ -no Drug Therapy requiring intensive monitoring for toxicity (Heparin, Nitro, Insulin, Cardizem)? @ -no Were any procedures done? @ -no Diagnosis/symptom? @ - UTI Acute, or Chronic, or Acute on Chronic? @ -Acute Uncomplicated (without systemic symptoms) or Complicated (systemic symptoms)? @ -Complicated Side effects of treatment? @ -no Exacerbation, Progression, or Severe Exacerbation? @ -exacerbation Poses a threat to life or bodily function? How? (Chest pain, [place], [place], pneumonia, PE, COPD, DKA, ARF, appy, cholecystitis, CVA, Diverticulitis, Homicidal, Suicidal, threat to staff... and all critical care pts) @ -yes infectious disease Reevaluation #5: Differential Abdominal Pain Women: Appendicitis, Cholecystitis, diverticulosis, ischemic bowel, pancreatitis, h epatitis, UTI, gastroenteritis, AAA, incarcerated hernia, bowel obstruction, constipation, inflammatory bowel, hepatitis, peptic ulcer disease, splenic infarction, perforated viscus, vulvitis, ovarian torsion, PID, kidney stone, placenta abruption, this is not meant to be an all-inclusive list - Consultations Consultation #1: Spoke with Dr. Hernandez who agrees to admit this patient Medical Decision Making - Medical Decision Making 29 female to the ER for evaluation patient presents today for evaluation urinary tract infection failed outpatient treatment will admit for IV antibiotics - Lab Data Result diagrams: 07/04/24 05:25 07/04/24 05:25 Lab Results 07/02/24 07/02/24 07/02/24 Range/Units 22:23 22:33 22:42 WBC 6.3 (3.8-10.6) k/uL RBC 4.21 (3.80-5.40) m/uL Hgb 12.5 (11.4-16.0) gm/dL Hct 37.6 (34.0-46.0) % MCV 89.2 (80.0-100.0) fL MCH 29.6 (25.0-35.0) pg MCHC 33.1 (31.0-37.0) g/dL RDW 12.0 (11.5-15.5) % Plt Count 238 (150-450) k/uL MPV 6.9 Neutrophils % 78 % Lymphocytes % 10 % Monocytes % 6 % Eosinophils % 4 % Basophils % 0 % Neutrophils # 5.0 (1.3-7.7) k/uL Lymphocytes # 0.6 L (1.0-4.8) k/uL Monocytes # 0.4 (0-1.0) k/uL Eosinophils # 0.3 (0-0.7) k/uL Basophils # 0.0 (0-0.2) k/uL Sodium (137-145) mmol/L Potassium (3.5-5.1) mmol/L Chloride (98-107) mmol/L Carbon Dioxide (22-30) mmol/L Anion Gap mmol/L BUN (7-17) mg/dL Creatinine (0.52-1.04) mg/dL Est GFR (CKD-EPI)AfAm (>60 ml/min/1.73 sqM) Est GFR (CKD-EPI)NonAf (>60 ml/min/1.73 sqM) Glucose (74-99) mg/dL Calcium (8.4-10.2) mg/dL Phosphorus (2.5-4.5) mg/dL Magnesium (1.6-2.3) mg/dL Total Bilirubin (0.2-1.3) mg/dL AST (14-36) U/L ALT (4-34) U/L Alkaline Phosphatase (38-126) U/L Total Protein (6.3-8.2) g/dL Albumin (3.5-5.0) g/dL Urine Color Yellow Urine Appearance Cloudy H (Clear) Urine pH 6.0 (5.0-8.0) Ur Specific [place] 1.044 H (1.001-1.035) Urine Protein 1+ H (Negative) Urine Glucose (UA) Negative (Negative) Urine Ketones 2+ H (Negative) Urine Blood Negative (Negative) Urine Nitrite Negative (Negative) Urine Bilirubin Negative (Negative) Urine Urobilinogen <2.0 (<2.0) mg/dL Ur Leukocyte Esterase Large H (Negative) Urine RBC 7 H (0-5) /hpf Urine WBC 138 H (0-5) /hpf Ur Squamous Epith Cells 13 H (0-4) /hpf Amorphous Sediment Occasional H (None) /hpf Urine Bacteria Occasional H (None) /hpf Hyaline Casts 13 H (0-2) /lpf Urine Mucus Many H (None) /hpf Urine HCG, Qual Not Detected (Not Detectd) 07/02/24 Range/Units 22:42 WBC (3.8-10.6) k/uL RBC (3.80-5.40) m/uL Hgb (11.4-16.0) gm/dL Hct (34.0-46.0) % MCV (80.0-100.0) fL MCH (25.0-35.0) pg MCHC (31.0-37.0) g/dL RDW (11.5-15.5) % Plt Count (150-450) k/uL MPV Neutrophils % % Lymphocytes % % Monocytes % % Eosinophils % % Basophils % % Neutrophils # (1.3-7.7) k/uL Lymphocytes # (1.0-4.8) k/uL Monocytes # (0-1.0) k/uL Eosinophils # (0-0.7) k/uL Basophils # (0-0.2) k/uL Sodium 134 L (137-145) mmol/L Potassium 3.5 (3.5-5.1) mmol/L Chloride 103 (98-107) mmol/L Carbon Dioxide 20 L (22-30) mmol/L Anion Gap 11 mmol/L BUN 17 (7-17) mg/dL Creatinine 1.08 H (0.52-1.04) mg/dL Est GFR (CKD-EPI)AfAm 80 (>60 ml/min/1.73 sqM) Est GFR (CKD-EPI)NonAf 69 (>60 ml/min/1.73 sqM) Glucose 84 (74-99) mg/dL Calcium 9.1 (8.4-10.2) mg/dL Phosphorus 3.5 (2.5-4.5) mg/dL Magnesium 1.9 (1.6-2.3) mg/dL Total Bilirubin 0.5 (0.2-1.3) mg/dL AST 26 (14-36) U/L ALT 26 (4-34) U/L Alkaline Phosphatase 69 (38-126) U/L Total Protein 7.0 (6.3-8.2) g/dL Albumin 4.0 (3.5-5.0) g/dL Urine Color Urine Appearance (Clear) Urine pH (5.0-8.0) Ur Specific [place] (1.001-1.035) Urine Protein (Negative) Urine Glucose (UA) (Negative) Urine Ketones (Negative) Urine Blood (Negative) Urine Nitrite (Negative) Urine Bilirubin (Negative) Urine Urobilinogen (<2.0) mg/dL Ur Leukocyte Esterase (Negative) Urine RBC (0-5) /hpf Urine WBC (0-5) /hpf Ur Squamous Epith Cells (0-4) /hpf Amorphous Sediment (None) /hpf Urine Bacteria (None) /hpf Hyaline Casts (0-2) /lpf Urine Mucus (None) /hpf Urine HCG, Qual (Not Detectd) - Radiology Data Radiology results: report reviewed (CT abdomen pelvis is negative for acute disease), image reviewed Disposition Clinical Impression: Urinary tract infection, Dehydration Disposition: ADMITTED IP TO THIS [facility] Condition: Good Is patient prescribed a controlled substance at d/c from ED?: No Time of Disposition: 01:00
[2024-07-02 22:58] LABS: Basophils % (A) 0 %; Eosinophils # (A) 0.3 k/uL (0-0.7); Eosinophils % (A) 4 %; HCT 37.6 % (34.0-46.0); HGB 12.5 gm/dL (11.4-16.0); Lymphocytes # (A) 0.6 k/uL (1.0-4.8); Lymphocytes % (A) 10 %; MCH 29.6 pg (25.0-35.0); MCHC 33.1 g/dL (31.0-37.0); MCV 89.2 fL (80.0-100.0); Mean Platelet Volume 6.9; Monocytes # (A) 0.4 k/uL (0-1.0); Monocytes % (A) 6 %; Neutrophils % (A) 78 %; Platelet Count 238 k/uL (150-450); RBC 4.21 m/uL (3.80-5.40); WBC 6.3 k/uL (3.8-10.6)
[2024-07-02 23:11] LABS: African American GFR (CKD) 80 (>60 ml/min/1.73 sqM); Anion Gap 11 mmol/L; Blood Urea Nitrogen 17 mg/dL (7-17); Carbon Dioxide 20 mmol/L (22-30); Chloride 103 mmol/L (98-107); Glucose 84 mg/dL (74-99); Potassium 3.5 mmol/L (3.5-5.1); Sodium 134 mmol/L (137-145)
[2024-07-02 23:12] LABS: ALT 26 U/L (4-34); AST 26 U/L (14-36); Alkaline Phosphatase 69 U/L (38-126); Calcium 9.1 mg/dL (8.4-10.2); Magnesium 1.9 mg/dL (1.6-2.3); Non-African American GFR(CKD) 69 (>60 ml/min/1.73 sqM); Phosphorus 3.5 mg/dL (2.5-4.5); Total Bilirubin 0.5 mg/dL (0.2-1.3)
[2024-07-02] MEDS: MORPHINE SULFATE 4 MG/ML SYRINGE IVP STA (23:19)
[2024-07-02] MEDS: KETOROLAC 15 MG/ML 1 ML VIAL IVP STA (23:20)
--- NOTE | 2024-07-03 00:23 | CT ---
EXAM: CT Abdomen and Pelvis Without Intravenous Contrast CLINICAL HISTORY: ITS.REASON CT Reason: pain TECHNIQUE: Axial computed tomography images of the abdomen and pelvis without intravenous contrast. CTDI is 9 mGy and DLP is 502.7 mGy-cm. This CT exam was performed using one or more of the following dose reduction techniques: automated exposure control, adjustment of the mA and/or kV according to patient size, and/or use of iterative reconstruction technique. COMPARISON: 04/06/2024. FINDINGS: Lung bases: Minimal scarring and subsegmental atelectasis noted at the lung bases. Heart: Heart is normal in size. ABDOMEN: Liver: The liver and the spleen are normal in contour. Gallbladder and bile ducts: Unremarkable. No ductal dilation. No gallstones. Pancreas: See below. Spleen: See above. Adrenals: The adrenal glands, the head, body, tail of the pancreas are unremarkable. Kidneys and ureters: Unremarkable. No renal calculus or hydronephrosis. Stomach and bowel: Moderate quantity of ingested material in the stomach. Diverticulosis without diverticulitis. No bowel obstruction. PELVIS: Appendix: The appendix is seen on coronal image 44 and is unremarkable. Bladder: Bladder is underdistended. No stones. Reproductive: Unremarkable as visualized. ABDOMEN and PELVIS: Intraperitoneal space: Unremarkable. No free air. No significant fluid collection. Bones/joints: No acute fracture. No dislocation. No spondylolysis. Soft tissues: Ischiorectal fat is clean. Vasculature: Abdominal aorta is normal in caliber. No abdominal aortic aneurysm. Lymph nodes: Unremarkable. No retroperitoneal lymphadenopathy. IMPRESSION: 1. The appendix is unremarkable. 2. No bowel obstruction. 3. No gallstones. 4. No renal calculus or hydronephrosis. 5. Diverticulosis without diverticulitis. 6. Appendix is unremarkable.
[2024-07-03] MEDS ORDERED: ONDANSETRON 4 MG/2 ML VIAL IVP PRN (01:04)
[2024-07-03] MEDS ORDERED: NALOXONE 0.4 MG/ML 1 ML VIAL IV PRN (01:04)
[2024-07-03] MEDS ORDERED: ACETAMINOPHEN TAB 325 MG TAB PO PRN (01:04)
[2024-07-03] MEDS: SODIUM CHLORIDE 0.9% 1,000 ML IV SCH (01:15)
[2024-07-03 01:47] LABS: Basophils % (A) 0 %; Eosinophils # (A) 0.3 k/uL (0-0.7); Eosinophils % (A) 5 %; HGB 11.5 gm/dL (11.4-16.0); Lymphocytes # (A) 0.6 k/uL (1.0-4.8); Lymphocytes % (A) 12 %; MCH 30.3 pg (25.0-35.0); MCHC 33.9 g/dL (31.0-37.0); MCV 89.5 fL (80.0-100.0); Mean Platelet Volume 7.1; Monocytes # (A) 0.4 k/uL (0-1.0); Monocytes % (A) 8 %; Neutrophils # (A) 3.5 k/uL (1.3-7.7); Neutrophils % (A) 73 %; Platelet Count 214 k/uL (150-450); RDW 12.2 % (11.5-15.5); WBC 4.8 k/uL (3.8-10.6)
[2024-07-03 03:00] LABS: ALT 20 U/L (4-34); AST 22 U/L (14-36); African American GFR (CKD) >90 (>60 ml/min/1.73 sqM); Albumin 3.1 g/dL (3.5-5.0); Alkaline Phosphatase 57 U/L (38-126); Anion Gap 7 mmol/L; Blood Urea Nitrogen 15 mg/dL (7-17); Calcium 8.7 mg/dL (8.4-10.2); Carbon Dioxide 21 mmol/L (22-30); Chloride 104 mmol/L (98-107); Glucose 106 mg/dL (74-99); Magnesium 1.7 mg/dL (1.6-2.3); Non-African American GFR(CKD) 87 (>60 ml/min/1.73 sqM); Potassium 3.6 mmol/L (3.5-5.1); Sodium 132 mmol/L (137-145); Total Bilirubin 0.3 mg/dL (0.2-1.3); Total Protein 5.7 g/dL (6.3-8.2)
[2024-07-03] MEDS: MORPHINE SULFATE 4 MG/ML SYRINGE IV PRN (03:21)
[2024-07-03 07:21] VITALS: RESP 16
--- NOTE | 2024-07-03 12:27 | P.HPIM ---
History of Present Illness H&P Date: 07/03/24 Chief Complaint: UTI/hyponatremia HISTORY OF PRESENT ILLNESS: This is a 29-year-old female was supposed to be a new patient to my practice this coming Thursday showed up to the emergency department at [facility] yesterday with increased urinary frequency and urgency along with intractable lower abdominal pain and bilateral flank pain, patient was initially here in the emergency department on June 11, 2024 after she fell and at that time she was diagnosed with urinary tract infection she was started on cephalexin 500 mg orally twice a day for 7 days, she ended up coming back to the emergency department on June 27, 2024 and she was diagnosed with recurrent urinary tract infection she was complaining intractable abdominal pain associated with nausea vomiting and dysuria and hematuria, at that point she was given IV antibiotic in the form of ceftriaxone and she was sent home on Bactrim double strength twice every day, patient was supposed to come to see me in the office tomorrow morning, however she came to the emergency department last night or early hours in the morning with intractable lower abdominal pain associated with intractable nausea and vomiting and she did not have any leukocytosis at this time, because of her flank pain she ended up going for a CT scan of the abdomen pelvis that did not show evidence of acute abnormalities patient stated that she had a past medical history significant for Crohn disease but upon investigation the patient she stated that she is probably mistaken irritable bowel syndrome with diarrhea for Crohn disease at that time, patient also did have a significant history of epilepsy and 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 her left shoulder she ended up going for a left shoulder surgery in 2018 for a labral tear as well as rotator cuff tear, she also complains of right medial meniscal tear as well as ACL without any repair, patient stated that also had history of rheumatoid arthritis but she has not been taking any biological agent at this point in time, she stated that she has increased amount of pain in her both ankles and both wrists, and she does complain of neck pain once in a while, nevertheless because of the presentation and because the patient failed outpatient treatment it was thought that the patient would be benefiting from staying in the hospital for IV antibiotic in the form of ceftriaxone 2 g IVPB every 24 hours, obtain blood culture, urine culture, reviewed CT scan with her and stated that the patient showed evidence of diverticulosis no evidence of appendicitis at this point in time, and patient was admitted to the hospital for evaluation by ID. REVIEW OF SYSTEMS: Constitutional: Negative for documented fever, no chills, no night sweats. No weight change. positive for weakness, fatigue or lethargy. No daytime sleepiness. EENT: No headache. No blurred vision or double vision, no loss of vision. No loss of Hearing, no ringing in the ears, no dizziness. No nasal drainage or congestion. No epistaxis. No sore throat. Lungs: No shortness of breath, no cough, no sputum production. No wheezing. Reports dyspnea with activity. Cardiovascular: No chest pain, no lower extremity edema. No palpitations. No paroxysmal nocturnal dyspnea. No orthopnea. No lightheadedness or dizziness. No syncopal episodes. Abdominal: Reports abdominal pain. positive for nausea, no vomiting. Positive diarrhea. No constipation. No bloody or tarry stools reports loss of appetite. Genitourinary: positive for dysuria, increased frequency, positive for urgency. No urinary retention. Musculoskeletal: No myalgias. No muscle weakness, no gait dysfunction, no frequent falls. No back pain. Positive for neck pain. Integumentary: No wounds, no lesions. No rash or pruritus. No unusual bruising. No change in hair or nails. Neurologic: No aphasia. No facial droop. No change in mentation. No head injury. No headache. No paralysis. No paresthesia. Psychiatric: positive for depression. positive for anxiety. occasional mood swings. Endocrine: No abnormal blood sugars. No weight change. PAST MEDICAL HISTORY: Rheumatoid arthritis. Seizure disorder. Seizure disorder/ epilepsy absence seizure History of multidrug-resistant organism UTI. Bipolar disorder. ADHD Anxiety. Irritable bowel syndrome with diarrhea Right medial meniscal tear with ACL tear Left shoulder labral tear and rotator cuff tear status post surgery 2018 Neck pain. Polycystic ovarian syndrome Eczema. POTS. PAST SURGICAL HISTORY: Left shoulder surgery 2018 tubal ligation. SOCIAL HISTORY: Patient denies a history of smoking, she vapes, she denies any alcohol ingestion, no drug use or abuse. FAMILY HISTORY: Mother is 69-year-old with history of cervical cancer and ovarian cancer status post total abdominal hysterectomy bilateral salpingo-oophorectomy also she did have a history of anxiety, father is 69-year-old with history of hypertension as well as anxiety patient has 1 brother 22-year-old with history of hypertension she has no sisters, her maternal grandmother diagnosed with ITP, her maternal aunt diagnosed with rheumatoid arthritis as well as eczema. PHYSICAL EXAMINATION: General: 29-year-old female laying down in bed in no apparent distress HEENT: Head is atraumatic, normocephalic, pupils were equal round reactive to light and recommendation, extraocular muscle movement were intact, sclera nonic teric, conjunctivae were pale, mucous membranes of the mouth are somewhat dry. Neck: Supple, no JVP, normal carotid upstroke bilaterally, no lymphadenopathy. Chest: Decreased breath sounds at the bases, few rhonchi, no expiratory wheezes, no chest wall tenderness, no intercostal retractions. Heart: First heart sound is normal, second heart sounds normal no gallop or murmur. Abdomen: Soft, nontender, nondistended, positive bowel sounds. Extremities: There is no edema no calf tenderness DP +2 bilaterally. Neurologic examination: Patient is awake alert and oriented x3, cranial nerves II-12 appear grossly intact, muscle power were 5 out of 5 in upper extremities and 5 out of 5 in bilateral lower extremities, deep tendon reflexes normal bilaterally. ASSESSMENT AND PLAN: 1. Recurrent UTI with SIRS that failed outpatient management with a prior history of E. coli multidrug-resistant organism. Urine culture will be obtained blood culture will be obtained continue patient on ceftriaxone 2 g IV every 24 hours, continue patient on Zofran 4 mg IV every 6 hours as needed, continue IV fluid in the form of normal saline at 100 cc an hour, await final results of culture, infectious ease consultation Dr. Ribeiro. CT scan of the abdomen and pelvis was done yesterday did not show evidence of acute abnormalities. Try to wean off morphine sulfate at this time, decrease the dose to 2 mg IV push every 8 hours as needed. 2. History of rheumatoid arthritis. Patient does not appear to have any evidence of any synovitis at this point in time. 3. Seizure disorder/absence seizure continue Keppra 2000 mg orally twice every day as well as Lamictal 100 mg orally twice every day. 4. Bipolar disorder/depression continue Lamictal 100 mg orally twice every day, Geodon 40 mg orally twice every day, 5. Attention deficit disorder. Hold stimulant while she is in the hospital. 6. Anxiety disorder. Continue patient on current psychotropic medication. Hold off Klonopin for now. 7. History of POTS. Continue Florinef 0.1 mg orally once every day. 8. History of polycystic ovarian syndrome. Stable at this time. 9. History of chronic neck pain. Stable at this time. 10. DVT prophylaxis. Bilateral knee-high KALANI hose early ambulation, heparin 5000 units subcutaneously every 12 hours. 11. GI prophylaxis. famotidine 20 mg orally once every day. 12. Observation. 13. Full code Past Medical History Past Medical History: Rheumatoid Arthritis (RA), Seizure Disorder Additional Past Medical History / Comment(s): Autonomic dysfunction. Lopez, crohns, bladder infection since - History of Any Multi-Drug Resistant Organisms: Other MDRO Date of last positivie culture/infection: 2023 MDRO Source:: kidney- E. Coli Past Surgical History: Tubal Ligation Additional Past Surgical History / Comment(s): left shoulder surgery in 2017 Past Psychological History: ADD/ADHD, Anxiety, Bipolar Smoking Status: Vaper Past Alcohol Use History: None Reported Past Drug Use History: Marijuana Medications and Allergies Home Medications Medication Instructions Recorded Confirmed Type Dextroamphetamine/Amphetamine 30 mg PO BID@0900,1600 02/23/24 07/03/24 History [Adderall] clonazePAM [KlonoPIN] 1 mg PO BID PRN 02/23/24 07/03/24 History Ziprasidone [Geodon] 40 mg PO BID 03/06/24 07/03/24 History lamoTRIgine [LaMICtal] 100 mg PO BID #90 tab 03/17/24 07/03/24 Rx Dicyclomine [Bentyl] 20 mg PO QID #40 tablet 04/19/24 07/03/24 Rx Fludrocortisone [Florinef] 0.1 mg PO DAILY #30 tab 04/19/24 07/03/24 Rx Sulfamethox-Tmp 800-160Mg [Bactrim 1 tab PO Q12HR 10 Days #20 tab 06/27/24 07/03/24 Rx DS 800-160 mg] Acetaminophen Tab [Tylenol Tab] 1,000 mg PO Q6HR PRN 07/03/24 07/03/24 History Ibuprofen [Motrin Ib] 400 mg PO Q6H PRN 07/03/24 07/03/24 History levETIRAcetam [Keppra] 2,000 mg PO BID 07/03/24 07/03/24 History Allergies Allergy/AdvReac Type Severity Reaction Status Date / Time pantoprazole [From Protonix] Allergy Rash/Hives/Abdominal Verified 07/03/24 11:19 pain trazodone Allergy Rash/Hives/Increased Verified 07/03/24 11:19 Heart Rate Physical Exam Vitals: Vital Signs Temp Pulse Pulse Resp BP BP Pulse Ox 07/03/24 07:00 98.0 F 91 16 112/72 99 07/03/24 01:58 98.2 F 108 H 18 99/55 97 07/03/24 01:40 103 H 20 111/64 95 07/02/24 22:18 98.1 F 112 H 20 119/72 99 Intake and Output 07/02/24 07/03/24 07/03/24 21:59 06:59 14:59 Other: # Voids Weight Results CBC & Chem 7: 07/03/24 01:30 07/03/24 01:30 Labs: Abnormal Lab Results - Last 24 Hours (Table) 07/02/24 07/02/24 07/02/24 Range/Units 22:23 22:42 22:42 Lymphocytes # 0.6 L (1.0-4.8) k/uL Sodium 134 L (137-145) mmol/L Carbon Dioxide 20 L (22-30) mmol/L Creatinine 1.08 H (0.52-1.04) mg/dL Glucose (74-99) mg/dL Total Protein (6.3-8.2) g/dL Albumin (3.5-5.0) g/dL Urine Appearance Cloudy H (Clear) Ur Specific [place] 1.044 H (1.001-1.035) Urine Protein 1+ H (Negative) Urine Ketones 2+ H (Negative) Ur Leukocyte Esterase Large H (Negative) Urine RBC 7 H (0-5) /hpf Urine WBC 138 H (0-5) /hpf Ur Squamous Epith Cells 13 H (0-4) /hpf Amorphous Sediment Occasional H (None) /hpf Urine Bacteria Occasional H (None) /hpf Hyaline Casts 13 H (0-2) /lpf Urine Mucus Many H (None) /hpf 07/03/24 07/03/24 Range/Units 01:30 01:30 Lymphocytes # 0.6 L (1.0-4.8) k/uL Sodium 132 L (137-145) mmol/L Carbon Dioxide 21 L (22-30) mmol/L Creatinine (0.52-1.04) mg/dL Glucose 106 H (74-99) mg/dL Total Protein 5.7 L (6.3-8.2) g/dL Albumin 3.1 L (3.5-5.0) g/dL Urine Appearance (Clear) Ur Specific [place] (1.001-1.035) Urine Protein (Negative) Urine Ketones (Negative) Ur Leukocyte Esterase (Negative) Urine RBC (0-5) /hpf Urine WBC (0-5) /hpf Ur Squamous Epith Cells (0-4) /hpf Amorphous Sediment (None) /hpf Urine Bacteria (None) /hpf Hyaline Casts (0-2) /lpf Urine Mucus (None) /hpf Thrombosis Risk Factor Assmnt - Choose All That Apply Any of the Below Risk Factors Present?: No Other Risk Factors: No Other congenital or acquired thrombophilia - If yes, enter type in comment: No Thrombosis Risk Factor Assessment Level: Very Low Risk
[2024-07-03] MEDS ORDERED: MORPHINE SULFATE 2 MG/ML SYRINGE IV PRN (12:28)
[2024-07-03] MEDS: DICYCLOMINE 20 MG TAB PO SCH (13:19)
[2024-07-03] MEDS ORDERED: KETOROLAC 15 MG/ML 1 ML VIAL IVP SCH (15:00)
[2024-07-03] MEDS: KETOROLAC 15 MG/ML 1 ML VIAL IVP PRN (17:01)
[2024-07-03] MEDS: ZIPRASIDONE 40 MG CAP PO SCH ×2 (18:03→20:22)
[2024-07-03] MEDS: lamoTRIgine 100 MG TAB PO SCH (20:22)
[2024-07-03] MEDS: levETIRAcetam 500 MG TAB PO SCH (20:23)
[2024-07-03] MEDS: IBUPROFEN 400 MG TAB PO PRN (20:29)
[2024-07-03] MEDS: ACETAMINOPHEN TAB 500 MG TAB PO PRN (20:29)
[2024-07-03] MEDS: FAMOTIDINE 20 MG TAB PO SCH (20:37)
[2024-07-03] MEDS: HEPARIN SODIUM,PORCINE 5,000 UNIT/ML 1 ML VIAL SQ SCH (20:37)
--- NOTE | 2024-07-03 23:25 | P.CONS ---
History of Present Illness - Reason for Consult Consult date: 07/03/24 UTI, history of MDRO Requesting physician: Po Hernandez - Chief Complaint Urinary burning frequency flank pain x days - History of Present Illness Patient is a 29-year-old female past medical history of kidney for RA seizure disorder presenting to the hospital for evaluation of increasing urinary frequency and urgency along with lower abdominal pain and bilateral flank pain in this patient mention has been previously evaluated in the ER diagnosed with a UTI and has been treated with 2 different courses of antibiotic initially cephalexin followed by a dose of Rocephin and sent home on Bactrim double strength twice a day patient now presenting back to the hospital with no improvement in her symptoms patient did have some chills but no high-grade fever have been recorded on presentation the hospital patient was mildly tachycardic but not hypotensive or hypoxic did have a white count of 6.3 with no left shift creatinine was mildly elevated repeat is normal urine has been positive urine hCG was negative cultures are pending patient did have abdominal pelvis CT appendix unremarkable no bowel obstruction no gallstone no renal calculus or hydronephrosis patient was started on Rocephin infectious was consulted for further management of antibiotic therapy Review of Systems Positive point and negatives has been mentioned in the HPI, complete review of systems was performed and all other systems are negative Past Medical History Past Medical History: Rheumatoid Arthritis (RA), Seizure Disorder Additional Past Medical History / Comment(s): Autonomic dysfunction. Lopez, crohns, bladder infection since 06-21 History of Any Multi-Drug Resistant Organisms: Other MDRO Year Discovered:: 2023 MDRO Source:: kidney- E. Coli Past Surgical History: Tubal Ligation Additional Past Surgical History / Comment(s): left shoulder surgery in 2018 Past Psychological History: ADD/ADHD, Anxiety, Bipolar Smoking Status: Vaper Past Alcohol Use History: None Reported Past Drug Use History: Marijuana Medications and Allergies Home Medications Medication Instructions Recorded Confirmed Type Dextroamphetamine/Amphetamine 30 mg PO BID@0900,1600 02/23/24 07/03/24 History [Adderall] clonazePAM [KlonoPIN] 1 mg PO BID PRN 02/23/24 07/03/24 History Ziprasidone [Geodon] 40 mg PO BID 03/06/24 07/03/24 History lamoTRIgine [LaMICtal] 100 mg PO BID #90 tab 03/17/24 07/03/24 Rx Dicyclomine [Bentyl] 20 mg PO QID #40 tablet 04/19/24 07/03/24 Rx Fludrocortisone [Florinef] 0.1 mg PO DAILY #30 tab 04/19/24 07/03/24 Rx Sulfamethox-Tmp 800-160Mg [Bactrim 1 tab PO Q12HR 10 Days #20 tab 06/27/24 07/03/24 Rx DS 800-160 mg] Acetaminophen Tab [Tylenol Tab] 1,000 mg PO Q6HR PRN 07/03/24 07/03/24 History Ibuprofen [Motrin Ib] 400 mg PO Q6H PRN 07/03/24 07/03/24 History levETIRAcetam [Keppra] 2,000 mg PO BID 07/03/24 07/03/24 History Allergies Allergy/AdvReac Type Severity Reaction Status Date / Time pantoprazole [From Protonix] Allergy Rash/Hives/Abdominal Verified 07/03/24 11:19 pain trazodone Allergy Rash/Hives/Increased Verified 07/03/24 11:19 Heart Rate Physical Exam Vitals: Vital Signs Temp Pulse Pulse Resp BP BP Pulse Ox 07/03/24 07:00 98.0 F 91 16 112/72 99 07/03/24 01:58 98.2 F 108 H 18 99/55 97 07/03/24 01:40 103 H 20 111/64 95 07/02/24 22:18 98.1 F 112 H 20 119/72 99 Intake and Output 07/02/24 07/03/24 07/03/24 21:59 06:59 14:59 Other: # Voids Weight GENERAL DESCRIPTION: Middle-age female lying in bed, no distress. No tachypnea or accessory muscle of respiration use. HEENT: Shows Pallor , no scleral icterus. Oral mucous membrane is dry. No pharyngeal erythema or thrush NECK: Trachea central, no thyromegaly. LUNGS: Unlabored breathing. Clear to auscultation anteriorly. No wheeze or crackle. HEART: S1, S2, regular rate and rhythm. No loud murmur ABDOMEN: Soft, flank tenderness EXTREMITIES: No edema of feet. SKIN: No rash, no masses palpable. NEUROLOGICAL: The patient is awake, alert, oriented x3, mood and affect normal. Results CBC & Chem 7: 07/03/24 01:30 07/03/24 01:30 Labs: Abnormal Lab Results - Last 24 Hours (Table) 07/02/24 07/02/24 07/02/24 Range/Units 22:23 22:42 22:42 Lymphocytes # 0.6 L (1.0-4.8) k/uL Sodium 134 L (137-145) mmol/L Carbon Dioxide 20 L (22-30) mmol/L Creatinine 1.08 H (0.52-1.04) mg/dL Glucose (74-99) mg/dL Total Protein (6.3-8.2) g/dL Albumin (3.5-5.0) g/dL Urine Appearance Cloudy H (Clear) Ur Specific [place] 1.044 H (1.001-1.035) Urine Protein 1+ H (Negative) Urine Ketones 2+ H (Negative) Ur Leukocyte Esterase Large H (Negative) Urine RBC 7 H (0-5) /hpf Urine WBC 138 H (0-5) /hpf Ur Squamous Epith Cells 13 H (0-4) /hpf Amorphous Sediment Occasional H (None) /hpf Urine Bacteria Occasional H (None) /hpf Hyaline Casts 13 H (0-2) /lpf Urine Mucus Many H (None) /hpf 07/03/24 07/03/24 Range/Units 01:30 01:30 Lymphocytes # 0.6 L (1.0-4.8) k/uL Sodium 132 L (137-145) mmol/L Carbon Dioxide 21 L (22-30) mmol/L Creatinine (0.52-1.04) mg/dL Glucose 106 H (74-99) mg/dL Total Protein 5.7 L (6.3-8.2) g/dL Albumin 3.1 L (3.5-5.0) g/dL Urine Appearance (Clear) Ur Specific [place] (1.001-1.035) Urine Protein (Negative) Urine Ketones (Negative) Ur Leukocyte Esterase (Negative) Urine RBC (0-5) /hpf Urine WBC (0-5) /hpf Ur Squamous Epith Cells (0-4) /hpf Amorphous Sediment (None) /hpf Urine Bacteria (None) /hpf Hyaline Casts (0-2) /lpf Urine Mucus (None) /hpf Assessment and Plan (1) Urinary tract infection Current Visit: Yes Status: Acute Code(s): N39.0 - URINARY TRACT INFECTION, SITE NOT SPECIFIED SNOMED Code(s): 68750388 Plan: 1patient presented to hospital significant burning frequency of urine as well as suprapubic and flank pain in this patient currently do not have any fever or elevated white count CT abdominal pelvis was negative for any structural abnormality or hydronephrosis failing outpatient oral cephalexin and Bactrim therapy apparently the patient did have a history of MDRO however I do not have any access to those culture data 2-for now we will treat with Rocephin while waiting for the culture to finalize Multiple question concern answered We will follow on clinical condition and cultures to further adjust medication if needed Thank you for this consultation we will follow the patient along with you Dictation was produced using [email or web address] dictation software. please excuse any g rammatical, word or spelling errors. Time with Patient: Greater than 30
[2024-07-04] MEDS: FLUDROCORTISONE 0.1 MG TAB PO SCH (08:21)
[2024-07-04 08:38] LABS: ALT 20 U/L (8-44); AST 18 U/L (13-35); Albumin 3.6 g/dL (3.8-4.9); Albumin/Globulin Ratio 1.64 Ratio (1.60-3.17); Alkaline Phosphatase 63 U/L (41-126); BUN/Creat Ratio 10.89 Ratio (12.00-20.00); Blood Urea Nitrogen 9.8 mg/dL (9.0-27.0); Calcium 8.5 mg/dL (8.7-10.3); Carbon Dioxide 23.9 mmol/L (21.6-31.8); Chloride 106 mmol/L (96-109); Globulin 2.2 g/dL (1.6-3.3); Glucose 94 mg/dL (70-110); Potassium 4.2 mmol/L (3.5-5.5); Sodium 137 mmol/L (135-145); Total Bilirubin <0.2 mg/dL (0.3-1.2); Total Protein 5.8 g/dL (6.2-8.2)
[2024-07-04 10:52] LABS: Basophils # (A) 0.04 X 10*3/uL (0.00-0.10); Basophils % (A) 0.9 %; Eosinophils # (A) 0.31 X 10*3/uL (0.04-0.35); HCT 37.5 % (37.2-46.3); HGB 12.1 g/dL (12.0-15.0); Lymphocytes # (A) 1.61 X 10*3/uL (0.90-5.00); Lymphocytes % (A) 36.3 %; MCH 29.7 pg (27.0-32.0); MCHC 32.3 g/dL (32.0-37.0); MCV 92.1 FL (80.0-97.0); Mean Platelet Volume 10.5 FL (9.5-12.2); Monocytes # (A) 0.72 X 10*3/uL (0.20-1.00); Monocytes % (A) 16.2 %; NRBC Per 100 WBC 0 X 10*3/uL (0.00-0.01); Neutrophils # (A) 1.73 X 10*3/uL (1.80-7.70); Neutrophils % (A) 38.9 %; Platelet Count 208 X 10*3/uL (140-440); RBC 4.07 X 10*6/uL (4.10-5.20); RDW 12.3 % (11.5-14.5); WBC 4.44 X 10*3/uL (4.50-10.00)
--- NOTE | 2024-07-04 16:22 | P.PN ---
Subjective Progress Note Date: 07/04/24 Principal diagnosis: Reason for follow-up is possible UTI Patient is a 29-year-old female past medical history of kidney for RA seizure disorder presenting to the hospital for evaluation of increasing urinary frequency and urgency along with lower abdominal pain and bilateral flank pain concerning for possible UTI. On today's evaluation that is 07/03/2024 the patient has been afebrile the patient is sleeping comfortably when evaluated this morning seem to be doing okay per the family at the bedside no vomiting or diarrhea has been reported. Patient white count is 4.44, creatinine 0.9 urine culture have been negative Objective - Vital Signs Vital signs: Vital Signs Temp 98.2 F 07/04/24 07:30 Pulse 89 07/04/24 07:30 Resp 16 07/04/24 07:30 BP 93/61 07/04/24 07:30 Pulse Ox 99 07/04/24 07:30 FiO2 Intake & Output 07/03/24 07/04/24 07/04/24 18:59 06:59 18:59 Intake Total 236 Balance 236 Intake: Oral 236 Other: # Voids 3 2 - Exam Middle-age female lying in bed in no distress Unlabored breathing - Labs CBC & Chem 7: 07/04/24 05:25 07/04/24 05:25 Labs: Abnormal Lab Results - Last 24 Hours (Table) 07/04/24 07/04/24 Range/Units 05:25 05:25 WBC 4.44 L (4.50-10.00) X 10*3/uL RBC 4.07 L (4.10-5.20) X 10*6/uL Neutrophils # 1.73 L (1.80-7.70) X 10*3/uL BUN/Creatinine Ratio 10.89 L (12.00-20.00) Ratio Calcium 8.5 L (8.7-10.3) mg/dL Total Bilirubin <0.2 L (0.3-1.2) mg/dL Total Protein 5.8 L (6.2-8.2) g/dL Albumin 3.6 L (3.8-4.9) g/dL Microbiology - Last 24 Hours (Table) 07/02/24 22:23 Urine Culture - Final Urine,Voided Assessment and Plan (1) Urinary tract infection Current Visit: Yes Status: Acute Code(s): N39.0 - URINARY TRACT INFECTION, SITE NOT SPECIFIED SNOMED Code(s): 80448930 Plan: 1patient presented to hospital significant burning frequency of urine as well as suprapubic and flank pain in this patient currently do not have any fever or elevated white count CT abdominal pelvis was negative for any structural abnormality or hydronephrosis failing outpatient oral cephalexin and Bactrim therapy apparently the patient did have a history of MDRO however I do not have any access to those culture data 2-patient remains to be afebrile white count has been normal culture has been negative so far on empiric Rocephin Dictation was produced using [employer] dictation software. please excuse any grammatical, word or spelling errors. Time with Patient: Less than 30
--- NOTE | 2024-07-04 18:47 | P.PN ---
Subjective Progress Note Date: 07/04/24 HISTORY OF PRESENT ILLNESS: This is a 29-year-old female was supposed to be a new patient to my practice this coming Thursday showed up to the emergency department at [facility] yesterday with increased urinary frequency and urgency along with intractable lower abdominal pain and bilateral flank pain, patient was initially here in the emergency department on June 11, 2024 after she fell and at that time she was diagnosed with urinary tract infection she was started on cephalexin 500 mg orally twice a day for 7 days, she ended up coming back to the emergency department on June 27, 2024 and she was diagnosed with recurrent urinary tract infection she was complaining intractable abdominal pain associated with nausea vomiting and dysuria and hematuria, at that point she was given IV antibiotic in the form of ceftriaxone and she was sent home on Bactrim double strength twice every day, patient was supposed to come to see me in the office tomorrow morning, however she came to the emergency department last night or early hours in the morning with intractable lower abdominal pain associated with intractable nausea and vomiting and she did not have any leukocytosis at this time, because of her flank pain she ended up going for a CT scan of the abdomen pelvis that did not show evidence of acute abnormalities patient stated that she had a past medical history significant for Crohn disease but upon investigation the patient she stated that she is probably mistaken irritable bowel syndrome with diarrhea for Crohn disease at that time, patient also did have a significant history of epilepsy and 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 her left shoulder she ended up going for a left shoulder surgery in 2018 for a labral tear as well as rotator cuff tear, she also complains of right medial meniscal tear as well as ACL without any repair, patient stated that also had history of rheumatoid arthritis but she has not been taking any biological agent at this point in time, she stated that she has increased amount of pain in her both ankles and both wrists, and she does complain of neck pain once in a while, nevertheless because of the presentation and because the patient failed outpatient treatment it was thought that the patient would be benefiting from staying in the hospital for IV antibiotic in the form of ceftriaxone 2 g IVPB every 24 hours, obtain blood culture, urine culture, reviewed CT scan with her and stated that the patient showed evidence of diverticulosis no evidence of appendicitis at this point in time, and patient was admitted to the hospital for evaluation by ID. 07/04: Patient is laying down in bed she is stated that she is still having significant amount of abdominal pain in the lower abdomen, in the hypogastric area, I spoke with the patient about the urine culture is negative at this point in time, we will continue patient on ceftriaxone 2 g. Every 24 hours, infectious disease following, I will switch the patient to oral Ceftin 500 mg orally twice a day for total of 7 days tomorrow morning and she can be discharged home, in the next 24 hours, continue and increase Toradol to 30 mg IV push every 6 hours, no narcotic at this point in time, increase activity, discontinue IV fluid, follow-up with the patient very closely. REVIEW OF SYSTEMS: Constitutional: Negative for documented fever, no chills, no night sweats. No weight change. positive for weakness, fatigue or lethargy. No daytime sleepiness. EENT: No headache. No blurred vision or double vision, no loss of vision. No loss of Hearing, no ringing in the ears, no dizziness. No nasal drainage or congestion. No epistaxis. No sore throat. Lungs: No shortness of breath, no cough, no sputum production. No wheezing. Reports dyspnea with activity. Cardiovascular: No chest pain, no lower extremity edema. No palpitations. No paroxysmal nocturnal dyspnea. No orthopnea. No lightheadedness or dizziness. No syncopal episodes. Abdominal: Reports abdominal pain. positive for nausea, no vomiting. Positive diarrhea. No constipation. No bloody or tarry stools reports loss of appetite. Genitourinary: positive for dysuria, increased frequency, positive for urgency. No urinary retention. Musculoskeletal: No myalgias. No muscle weakness, no gait dysfunction, no frequent falls. No back pain. Positive for neck pain. Integumentary: No wounds, no lesions. No rash or pruritus. No unusual bruising. No change in hair or nails. Neurologic: No aphasia. No facial droop. No change in mentation. No head injury. No headache. No paralysis. No paresthesia. Psychiatric: positive for depression. positive for anxiety. occasional mood swings. Endocrine: No abnormal blood sugars. No weight change. PHYSICAL EXAMINATION: General: 29-year-old female laying down in bed in no apparent distress HEENT: Head is atraumatic, normocephalic, pupils were equal round reactive to light and recommendation, extraocular muscle movement were intact, sclera nonicteric, conjunctivae were pale, mucous membranes of the mouth are somewhat dry. Neck: Supple, no JVP, normal carotid upstroke bilaterally, no lymphadenopathy. Chest: Decreased breath sounds at the bases, few rhonchi, no expiratory wheezes, no chest wall tenderness, no intercostal retractions. Heart: First heart sound is normal, second heart sounds normal no gallop or murmur. Abdomen: Soft, nontender, nondistended, positive bowel sounds. Extremities: There is no edema no calf tenderness DP +2 bilaterally. Neurologic examination: Patient is awake alert and oriented x3, cranial nerves II-12 appear grossly intact, muscle power were 5 out of 5 in upper extremities and 5 out of 5 in bilateral lower extremities, deep tendon reflexes normal bilaterally. ASSESSMENT AND PLAN: 1. Recurrent UTI with SIRS that failed outpatient management with a prior history of E. coli multidrug-resistant organism. Urine culture so far is negative, continue ceftriaxone 2 g piggyback every 24 hours, increase Toradol to 30 mg IV push every 6 hours, increase activity, discontinue IV fluid, increase patient will be discharged home tomorrow morning on Ceftin 500 mg orally twice every day for 7 days. 2. History of rheumatoid arthritis. Patient does not appear to have any evidence of any synovitis at this point in time. 3. Seizure disorder/absence seizure continue Keppra 2000 mg orally twice every day as well as Lamictal 100 mg orally twice every day. 4. Bipolar disorder/depression continue Lamictal 100 mg orally twice every day, Geodon 40 mg orally twice every day, 5. Attention deficit disorder. Hold stimulant while she is in the hospital. 6. Anxiety disorder. Continue patient on current psychotropic medication. Hold off Klonopin for now. 7. History of POTS. Continue Florinef 0.1 mg orally once every day. 8. History of polycystic ovarian syndrome. Stable at this time. 9. History of chronic neck pain. Stable at this time. 10. DVT prophylaxis. Bilateral knee-high KALANI hose early ambulation, heparin 5000 units subcutaneously every 12 hours. 11. GI prophylaxis. famotidine 20 mg orally once every day. 12. Home tomorrow morning Objective - Vital Signs Vital signs: Vital Signs Temp 98.3 F 03/09/25 18:40 Pulse 99 07/03/24 18:40 Resp 16 07/03/24 18:40 BP 94/59 07/03/24 18:40 Pulse Ox 99 07/03/24 18:40 FiO2 Intake & Output 07/03/24 07/04/24 07/04/24 18:59 06:59 18:59 Intake Total 236 Balance 236 Intake: Oral 236 Other: # Voids 3 2 - Labs CBC & Chem 7: 07/04/24 05:25 07/04/24 05:25
[2024-07-04] MEDS: KETOROLAC 15 MG/ML 1 ML VIAL IVP PRN (22:16)
[2024-07-05 08:34] VITALS: BP 118/80; PULSE 92; TEMP 98.3
--- NOTE | 2024-07-05 09:46 | P.DS ---
Providers Date of admission: 07/03/24 01:04 Expected date of discharge: 07/05/24 Attending physician: Po Hernandez Consults: 07/03/24 09:07 Consult Physician Routine Consulting Provider: Rubi Ribeiro Consult Reason/Comments: Recurrent UTI/ hostory of MDRO Do you want consulting provider notified?: Yes Primary care physician: Po Hernandez Hospital Course: HISTORY OF PRESENT ILLNESS: This is a 29-year-old female was supposed to be a new patient to my practice this coming Thursday showed up to the emergency department at [facility] yesterday with increased urinary frequency and urgency along with intractable lower abdominal pain and bilateral flank pain, patient was initially here in the emergency department on June 11, 2024 after she fell and at that time she was diagnosed with urinary tract infection she was started on cephalexin 500 mg orally twice a day for 7 days, she ended up coming back to the emergency department on June 27, 2024 and she was diagnosed with recurrent urinary tract infection she was complaining intractable abdominal pain associated with nausea vomiting and dysuria and hematuria, at that point she was given IV antibiotic in the form of ceftriaxone and she was sent home on Bactrim double strength twice every day, patient was supposed to come to see me in the office tomorrow morning, however she came to the emergency department last night or early hours in the morning with intractable lower abdominal pain associated with intractable nausea and vomiting and she did not have any leukocytosis at this time, because of her flank pain she ended up going for a CT scan of the abdomen pelvis that did not show evidence of acute abnormalities patient stated that she had a past medical history significant for Crohn disease but upon investigation the patient she stated that she is probably mistaken irritable bowel syndrome with diarrhea for Crohn disease at that time, patient also did have a significant history of epilepsy and 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 her left shoulder she ended up going for a left shoulder surgery in 2018 for a labral tear as well as rotator cuff tear, she also complains of right medial meniscal tear as well as ACL without any repair, patient stated that also had history of rheumatoid arthritis but she has not been taking any biological agent at this point in time, she stated that she has increased amount of pain in her both ankles and both wrists, and she does complain of neck pain once in a while, nevertheless because of the presentation and because the patient failed outpatient treatment it was thought that the patient would be benefiting from staying in the hospital for IV antibiotic in the form of ceftriaxone 2 g IVPB every 24 hours, obtain blood culture, urine culture, reviewed CT scan with her and stated that the patient showed evidence of diverticulosis no evidence of appendicitis at this point in time, and patient was admitted to the hospital for evaluation by ID. 07/04: Patient is laying down in bed she is stated that she is still having significant amount of abdominal pain in the lower abdomen, in the hypogastric area, I spoke with the patient about the urine culture is negative at this point in time, we will continue patient on ceftriaxone 2 g. Every 24 hours, infectious disease following, I will switch the patient to oral Ceftin 500 mg orally twice a day for total of 7 days tomorrow morning and she can be discharged home, in the next 24 hours, continue and increase Toradol to 30 mg IV push every 6 hours, no narcotic at this point in time, increase activity, discontinue IV fluid, follow-up with the patient very closely. 07/05: Patient urine culture came back negative, blood cultures came back negat gordon, patient was on ceftriaxone, will discuss with infectious ease whether or not the patient can be switched to oral Ceftin 500 mg orally twice every day for 7 days and get out of the hospital follow-up with us as an outpatient in a week from now. Discharge diagnoses: 1. Recurrent UTI with SIRS that failed outpatient management with a prior history of E. coli multidrug-resistant organism. 2. History of rheumatoid arthritis. 3. Seizure disorder/absence seizure 4. Bipolar disorder/depression 5. Attention deficit disorder. 6. Anxiety disorder. 7. History of POTS. 8. History of polycystic ovarian syndrome. 9. History of chronic neck pain. Patient Condition at Discharge: Good Plan - Discharge Summary Discharge Rx Participant: No New Discharge Prescriptions: No Action lamoTRIgine [LaMICtal] 100 mg PO BID #90 tab Sulfamethox-Tmp 800-160Mg [Bactrim DS 800-160 mg] 1 tab PO Q12HR 10 Days #20 tab Ibuprofen [Motrin Ib] 400 mg PO Q6H PRN PRN Reason: Fever And/ Or Pain clonazePAM [KlonoPIN] 1 mg PO BID PRN PRN Reason: Anxiety Dextroamphetamine/Amphetamine [Adderall] 30 mg PO BID@0900,1600 Ziprasidone [Geodon] 40 mg PO BID Dicyclomine [Bentyl] 20 mg PO QID #40 tablet Fludrocortisone [Florinef] 0.1 mg PO DAILY #30 tab levETIRAcetam [Keppra] 2,000 mg PO BID Acetaminophen Tab [Tylenol Tab] 1,000 mg PO Q6HR PRN PRN Reason: Fever And/ Or Pain Discharge Medication List Dextroamphetamine/Amphetamine [Adderall] 30 mg PO BID@0900,1600 02/23/24 [History] clonazePAM [KlonoPIN] 1 mg PO BID PRN 02/23/24 [History] Ziprasidone [Geodon] 40 mg PO BID 03/06/24 [History] lamoTRIgine [LaMICtal] 100 mg PO BID #90 tab 03/17/24 [Rx] Dicyclomine [Bentyl] 20 mg PO QID #40 tablet 04/19/24 [Rx] Fludrocortisone [Florinef] 0.1 mg PO DAILY #30 tab 04/19/24 [Rx] Sulfamethox-Tmp 800-160Mg [Bactrim DS 800-160 mg] 1 tab PO Q12HR 10 Days #20 tab 06/27/24 [Rx] Acetaminophen Tab [Tylenol Tab] 1,000 mg PO Q6HR PRN 07/03/24 [History] Ibuprofen [Motrin Ib] 400 mg PO Q6H PRN 07/03/24 [History] levETIRAcetam [Keppra] 2,000 mg PO BID 07/03/24 [History] Follow up Appointment(s)/Referral(s): Po Hernandez MD [Primary Care Provider] - 1-2 days
== END 2024-07-05 11:36 | disposition home or self-care (01) ==
LOC: EC 22:05 → 6NMEDSUR 07-03 01:04
PROVIDERS: ADMIT Internal Medicine; ATTEND Internal Medicine
DX: N39.0 Urinary tract infection, site not specified (principal); R65.10 Systemic inflammatory response syndrome (SIRS) of non-infectious origin without acute organ dysfunction; E86.0 Dehydration; F31.9 Bipolar disorder, unspecified; F41.9 Anxiety disorder, unspecified; F90.9 Attention-deficit hyperactivity disorder, unspecified type; G40.A09 Absence epileptic syndrome, not intractable, without status epilepticus; G90.A Postural orthostatic tachycardia syndrome [POTS]; M06.9 Rheumatoid arthritis, unspecified; G89.29 Other chronic pain; M54.2 Cervicalgia; E28.2 Polycystic ovarian syndrome; Z16.24 Resistance to multiple antibiotics; Z79.52 Long term (current) use of systemic steroids; Z79.899 Other long term (current) drug therapy; Z87.440 Personal history of urinary (tract) infections; Z88.8 Allergy status to other drugs, medicaments and biological substances
CPT/HCPCS: 96376 ×3; 96361; 96366 ×3; 96372 ×2; 96375 ×2; 96365; 99285; 36415; 80053 ×3; 80177; 83735 ×2; 84100 ×2; 85025 ×3; 81001; 81025; 87040; 87086; 74176; G0378 ×3; J2270 ×2; J1644 ×2; J0696 ×4; J1885 ×4

== ENCOUNTER 2024-07-26 00:06 | Observation (INO) | payer OTHER ==
[2024-07-26] MEDS: LORazepam 2 MG/ML INJ IV STA (00:11)
[2024-07-26 00:16] LABS: Glucose,Whole Blood 87 mg/dL (70-110)
[2024-07-26 00:44] LABS: Basophils # (A) 0.1 k/uL (0-0.2); Basophils % (A) 1 %; Eosinophils # (A) 0.3 k/uL (0-0.7); Eosinophils % (A) 3 %; HCT 40.9 % (34.0-46.0); Lymphocytes # (A) 2.8 k/uL (1.0-4.8); Lymphocytes % (A) 29 %; MCH 29.9 pg (25.0-35.0); MCHC 34.2 g/dL (31.0-37.0); MCV 87.2 fL (80.0-100.0); Mean Platelet Volume 7.5; Monocytes # (A) 0.6 k/uL (0-1.0); Monocytes % (A) 6 %; Neutrophils # (A) 5.6 k/uL (1.3-7.7); Neutrophils % (A) 59 %; Platelet Count 295 k/uL (150-450); RBC 4.69 m/uL (3.80-5.40); RDW 12.2 % (11.5-15.5); WBC 9.5 k/uL (3.8-10.6)
--- NOTE | 2024-07-26 00:45 | ED ---
General Adult HPI - General Chief complaint: Seizure Stated complaint: Seizures Time Seen by Provider: 07/26/24 00:22 Source: patient Mode of arrival: ambulatory Limitations: no limitations - History of Present Illness Initial comments: Patient is a 29-year-old female with a past medical history of epilepsy, POTS presenting today for multiple seizures. States over the last 2 to 3 days she has had about 10 seizures a day. She takes Keppra, and lamotrigine which she denies any missed dosages. States she has also had abdominal pain over the last few days as well as she was unable to fill her prescription for Bentyl at her pharmacy. She denies vomiting but endorses nausea. Denies fevers or recent illness but states she was in the hospital earlier this month for urinary tract infection. She states she was discharged home on an antibiotic but is unsure which 1 which she has since completed. Does still endorse urinary frequency but denies hematuria. Denies any chest pain or shortness of breath no numbness or focal weakness. States she does of a headache that she typically gets due to her epilepsy. Denies hitting her head stating that she typically knows when she is going to have a seizure. States seizures are like her usual seizures and are absence seizure's. She cannot remember the first day of her last menstrual period and states she could potentially be . - Related Data Home Medications Medication Instructions Recorded Confirmed Dextroamphetamine/Amphetamine 30 mg PO BID@0900,1600 02/23/24 07/26/24 [Adderall] clonazePAM [KlonoPIN] 1 mg PO BID PRN 02/23/24 07/26/24 Ziprasidone [Geodon] 40 mg PO BID 03/06/24 07/26/24 Acetaminophen Tab [Tylenol] 1,000 mg PO Q6HR PRN 07/03/24 07/26/24 Ibuprofen [Motrin Ib] 400 mg PO Q6H PRN 07/03/24 07/26/24 levETIRAcetam [Keppra] 2,000 mg PO BID 07/03/24 07/26/24 Gabapentin [Neurontin] 300 mg PO BID 07/26/24 07/26/24 Previous Rx's Medication Instructions Recorded lamoTRIgine [LaMICtal] 100 mg PO BID #90 tab 03/17/24 Dicyclomine [Bentyl] 20 mg PO QID #40 tablet 04/19/24 Fludrocortisone [Florinef] 0.1 mg PO DAILY #30 tab 04/19/24 Allergies Allergy/AdvReac Type Severity Reaction Status Date / Time pantoprazole [From Protonix] Allergy Rash/Hives/Abdominal Verified 07/26/24 07:59 pain trazodone Allergy Rash/Hives/Increased Verified 07/26/24 07:59 Heart Rate Review of Systems ROS Statement: Those systems with pertinent positive or pertinent negative responses have been documented in the HPI. ROS Other: All systems not noted in ROS Statement are negative. Past Medical History Past Medical History: Rheumatoid Arthritis (RA), Seizure Disorder Additional Past Medical History / Comment(s): Autonomic dysfunction. Lopez, crohns, bladder infection since 06-21 History of Any Multi-Drug Resistant Organisms: Other MDRO Date of last positivie culture/infection: 2023 MDRO Source:: kidney- E. Coli Past Surgical History: Tubal Ligation Additional Past Surgical History / Comment(s): left shoulder surgery in 2018 Past Psychological History: ADD/ADHD, Anxiety, Bipolar Smoking Status: Vaper Past Alcohol Use History: None Reported Past Drug Use History: Marijuana General Exam - General Exam Comments Initial Comments: PE: CONSTITUTIONAL: No apparent distress, well appearing SKIN: Warm, dry, no jaundice, hives or petechiae EYES: Pupils are equally round, extraocular movements in resting comfortably with eyes closed tact without nystagmus, clear conjunctiva, non-icteric sclera HENT: Normocephalic, atraumatic, moist mucus membranes, oropharynx clear without exudates NECK: , Full range of motion, normal appearance PULMONARY: Clear to auscultation without wheezes, rhonchi, or rales, normal excursion, no accessory muscle use and no stridor CARDIOVASCULAR: Regular rate, rhythm, normal S1 and S2. No appreciated murmurs, rubs or gallops. Strong radial pulses with intact distal perfusion. No lower extremity edema GASTROINTESTINAL: Soft, active bowel sounds throughout, tenderness to palpation in the suprapubic region, non-distended, no palpable masses, no rebound or guarding. No hepatosplenomegaly GENITOURINARY: MUSCULOSKELETAL: Extremities have no gross deformity, no edema, redness, or swelling. No calf swelling NEUROLOGIC:_a/o x 3, GCS 15, normal mentation and speech. Moves all extremities x 4 without motor or sensory deficit PSYCHIATRIC:_normal mood and affect, thought process is clear and linear Limitations: no limitations Course Vital Signs 07/26/24 07/26/24 07/26/24 00:10 01:13 04:00 Temperature 98.2 F 98.5 F Pulse Rate 72 81 106 H Respiratory 17 16 13 Rate Blood Pressure 104/71 99/71 104/65 O2 Sat by Pulse 100 95 95 Oximetry 07/26/24 07/26/24 07/26/24 06:00 08:00 09:00 Temperature Pulse Rate 107 H 93 112 H Respiratory 16 18 18 Rate Blood Pressure 94/57 109/71 119/81 O2 Sat by Pulse 95 96 96 Oximetry 07/26/24 07/26/24 07/26/24 13:26 15:30 18:12 Temperature Pulse Rate 98 110 H 98 Respiratory 18 18 18 Rate Blood Pressure 104/65 112/82 105/74 O2 Sat by Pulse 98 98 97 Oximetry - Reevaluation(s) Reevaluation #1: Sinus rhythm, rate 68 bpm NC interval 138 ms QT/QTc 370/3 to 70 ms, normal axis, no ST elevations or depressions, no arrhythmia 07/26/24 03:03 EKG Findings - EKG Comments: EKG Findings:: Sinus rhythm, rate 68 bpm normal intervals, normal axis, no ST elevations, depressions, delta waves, Brugada pattern or arrhythmia Medical Decision Making - Medical Decision Making Was pt. sent in by a medical professional or institution (, PA, FINISHING MACHINE TENDER, urgent care, hospital, or halfway...) When possible be specific @ -No Did you speak to anyone other than the patient for history (EMS, parent, family, police, friend...)? What history was obtained from this source @ -No Did you review nursing and triage notes (agree or disagree)? Why? @ -I reviewed nursing and triage notes states states history epilepsy, had temporal seizures at home brought by was worse unresponsive in truncal car, I do disagree with this, other report states that patient drove herself here and was found in the front seat of her car in the parking lot facedown, not responding, patient's friend is currently at bedside, states patient's fianc will be here later Were old charts reviewed (outside hosp., previous admission, EMS record, old EKG, old radiological studies, urgent care reports/EKG's, halfway records)? Report findings @ -Medical records reviewed-Reviewed discharge summary from [facility] 12/19, patient had been admitted for states that patient had come in at that time for lower abdominal pain and interpreted nausea and vomiting a CT scan at the time showed no acute process was treated for recurrent UTI Differential Diagnosis (chest pain, altered mental status, abdominal pain women, abdominal pain men, vaginal bleeding, weakness, fever, dyspnea, syncope, headache, dizziness, GI bleed, back pain, seizure, CVA, palpatations, mental health, musculoskeletal)? @ -[Differential Seizure: Recurrent seizure disorder, febrile seizure, alcohol withdrawal, stimulants, meningitis, encephalitis, intercranial hemorrhage, intracranial tumor, stroke, eclampsia, thyrotoxicosis, hypocalcemia, hyponatremia, hypernatremia, hypomagnesemia, psychogenic, this is not meant to be an all-inclusive list. EKG interpreted by me (3pts min.). @ -As above X-rays interpreted by me (1pt min.). @ -None done CT interpreted by me (1pt min.). @ -None done U/S interpreted by me (1pt. min.). @ -None done What testing was considered but not performed or refused? (CT, X-rays, U/S, labs)? Why? @ -None What meds were considered but not given or refused? Why? @ -None Did you discuss the management of the patient with other professionals (professionals i.e. , PA, FINISHING MACHINE TENDER, lab, RT, psych nurse, certified social workers in health care, battery technician, teacher, freedom of information officer, geriatric case manager)? Give summary @ -No Was smoking cessation discussed for >3mins.? @ -No Was critical care preformed (if so, how long)? @ -No Were there social determinants of health that impacted care today? How? (Homelessness, low income, unemployed, alcoholism, drug addiction, transportation, low edu. Level, literacy, decrease access to med. care, longterm, rehab)? @ -No Was there de-escalation of care discussed even if they declined (Discuss DNR or withdrawal of care, Hospice)? @ -No What co-morbidities impacted this encounter? (DM, HTN, Smoking, COPD, CAD, Cancer, CVA, ARF, Chemo, Hep., AIDS, mental health diagnosis, sleep apnea, mor bid obesity)? @POTs, epilepsy Was patient admitted / discharged? Hospital course, mention meds given and route, prescriptions, significant lab abnormalities, going to OR and other pertinent info. @ Admission- this is a pleasant 29-year-old female presenting for multiple seizures, history epilepsy. On my assessment vital signs are within except limits she is drowsy however alert and oriented x 4 without focal deficits. Lower abdominal tenderness to palpation patient states started after not being able to fill her Bentyl. Patient be given a 3 g Keppra load, IV fluids, pain control, comprehensive labs to be obtained as well as a test, EKG. Blood glucose on arrival was 87. At this point will hold off on imaging of the abdomen given chronicity of pain, pt afebrile, currently vitally stable, will consider further imaging if pain remains uncontrolled and/or significant lab abnormalities. Labs and imaging reviewed. Grossly within normal limits. Abnormal values not concerning for acute pathology related to presenting complaint. There is no elevation in lactic acid or CK level. test is negative. On my reassessment patient is sleeping comfortably. No additional seizures noted. Endorses some improvement in pain, and is asking for something to eat. Added bentyl, pt will be provided with snack. Given increased frequency of her seizures patient will be admitted for neurology consultation. Pt agreeable with POC. Case discussed with Dr. Hernandez who kindly accepted pt for admission. Undiagnosed new problem with uncertain prognosis? @ -No Drug Therapy requiring intensive monitoring for toxicity (Heparin, Nitro, Insulin, Cardizem)? @ -No Were any procedures done? @ -No Diagnosis/symptom? @Recurrent seizures, abdominal pain Acute, or Chronic, or Acute on Chronic? @ -acute Uncomplicated (without systemic symptoms) or Complicated (systemic symptoms)? @complicated Side effects of treatment? @ -No Exacerbation, Progression, or Severe Exacerbation? @ -No Poses a threat to life or bodily function? How? (Chest pain, [place], NV, pneumonia, PE, COPD, DKA, ARF, appy, cholecystitis, CVA, Diverticulitis, Homicidal, Suicidal, threat to staff... and all critical care pts) Seizures- potentially, if left unaddressed could lead to status epilepticus - Lab Data Result diagrams: 07/26/24 00:20 07/26/24 00:20 Lab Results 07/26/24 07/26/24 07/26/24 Range/Units 00:14 00:20 00:20 WBC 9.5 (3.8-10.6) k/uL RBC 4.69 (3.80-5.40) m/uL Hgb 14.0 (11.4-16.0) gm/dL Hct 40.9 (34.0-46.0) % MCV 87.2 (80.0-100.0) fL MCH 29.9 (25.0-35.0) pg MCHC 34.2 (31.0-37.0) g/dL RDW 12.2 (11.5-15.5) % Plt Count 295 (150-450) k/uL MPV 7.5 Neutrophils % 59 % Lymphocytes % 29 % Monocytes % 6 % Eosinophils % 3 % Basophils % 1 % Neutrophils # 5.6 (1.3-7.7) k/uL Lymphocytes # 2.8 (1.0-4.8) k/uL Monocytes # 0.6 (0-1.0) k/uL Eosinophils # 0.3 (0-0.7) k/uL Basophils # 0.1 (0-0.2) k/uL Sodium 136 L (137-145) mmol/L Potassium 4.2 (3.5-5.1) mmol/L Chloride 103 (98-107) mmol/L Carbon Dioxide 25 (22-30) mmol/L Anion Gap 8 mmol/L BUN 21 H (7-17) mg/dL Creatinine 0.86 (0.52-1.04) mg/dL Est GFR (CKD-EPI)AfAm >90 (>60 ml/min/1.73 sqM) Est GFR (CKD-EPI)NonAf >90 (>60 ml/min/1.73 sqM) Glucose 89 (74-99) mg/dL POC Glucose (mg/dL) 87 (70-110) mg/dL POC Glu Insurance Account Assistant ID [place] Plasma Lactic Acid Uri (0.7-2.0) mmol/L Calcium 9.6 (8.4-10.2) mg/dL Magnesium 1.7 (1.6-2.3) mg/dL Total Bilirubin 0.3 (0.2-1.3) mg/dL AST 22 (14-36) U/L ALT 18 (4-34) U/L Alkaline Phosphatase 57 (38-126) U/L Creatine Kinase 67 (30-135) U/L Troponin I (0.000-0.034) ng/mL Total Protein 7.2 (6.3-8.2) g/dL Albumin 4.2 (3.5-5.0) g/dL Lipase 114 (23-300) U/L HCG, Quant <2.4 mIU/mL Urine Color Urine Appearance (Clear) Urine pH (5.0-8.0) Ur Specific Vidal (1.001-1.035) Urine Protein (Negative) Urine Glucose (UA) (Negative) Urine Ketones (Negative) Urine Blood (Negative) Urine Nitrite (Negative) Urine Bilirubin (Negative) Urine Urobilinogen (<2.0) mg/dL Ur Leukocyte Esterase (Negative) Urine Opiates Screen (NotDetected) Ur Oxycodone Screen (NotDetected) Urine Methadone Screen (NotDetected) Ur Barbiturates Screen (NotDetected) U Tricyclic Antidepress (NotDetected) Ur Phencyclidine Scrn (NotDetected) Ur Amphetamines Screen (NotDetected) U Methamphetamines Scrn (NotDetected) U Benzodiazepines Scrn (NotDetected) Urine Cocaine Screen (NotDetected) U Marijuana (THC) Screen (NotDetected) Serum Alcohol <10 mg/dL 07/26/24 07/26/24 07/26/24 Range/Units 00:36 00:47 04:02 WBC (3.8-10.6) k/uL RBC (3.80-5.40) m/uL Hgb (11.4-16.0) gm/dL Hct (34.0-46.0) % MCV (80.0-100.0) fL MCH (25.0-35.0) pg MCHC (31.0-37.0) g/dL RDW (11.5-15.5) % Plt Count (150-450) k/uL MPV Neutrophils % % Lymphocytes % % Monocytes % % Eosinophils % % Basophils % % Neutrophils # (1.3-7.7) k/uL Lymphocytes # (1.0-4.8) k/uL Monocytes # (0-1.0) k/uL Eosinophils # (0-0.7) k/uL Basophils # (0-0.2) k/uL Sodium (137-145) mmol/L Potassium (3.5-5.1) mmol/L Chloride (98-107) mmol/L Carbon Dioxide (22-30) mmol/L Anion Gap mmol/L BUN (7-17) mg/dL Creatinine (0.52-1.04) mg/dL Est GFR (CKD-EPI)AfAm (>60 ml/min/1.73 sqM) Est GFR (CKD-EPI)NonAf (>60 ml/min/1.73 sqM) Glucose (74-99) mg/dL POC Glucose (mg/dL) (70-110) mg/dL POC Glu Insurance Account Assistant ID Plasma Lactic Acid Uri 1.1 (0.7-2.0) mmol/L Calcium (8.4-10.2) mg/dL Magnesium (1.6-2.3) mg/dL Total Bilirubin (0.2-1.3) mg/dL AST (14-36) U/L ALT (4-34) U/L Alkaline Phosphatase (38-126) U/L Creatine Kinase (30-135) U/L Troponin I <0.012 (0.000-0.034) ng/mL Total Protein (6.3-8.2) g/dL Albumin (3.5-5.0) g/dL Lipase (23-300) U/L HCG, Quant mIU/mL Urine Color Colorless Urine Appearance Clear (Clear) Urine pH 5.5 (5.0-8.0) Ur Specific Vidal 1.021 (1.001-1.035) Urine Protein Negative (Negative) Urine Glucose (UA) Negative (Negative) Urine Ketones Negative (Negative) Urine Blood Negative (Negative) Urine Nitrite Negative (Negative) Urine Bilirubin Negative (Negative) Urine Urobilinogen <2.0 (<2.0) mg/dL Ur Leukocyte Esterase Negative (Negative) Urine Opiates Screen (NotDetected) Ur Oxycodone Screen (NotDetected) Urine Methadone Screen (NotDetected) Ur Barbiturates Screen (NotDetected) U Tricyclic Antidepress (NotDetected) Ur Phencyclidine Scrn (NotDetected) Ur Amphetamines Screen (NotDetected) U Methamphetamines Scrn (NotDetected) U Benzodiazepines Scrn (NotDetected) Urine Cocaine Screen (NotDetected) U Marijuana (THC) Screen (NotDetected) Serum Alcohol mg/dL 07/26/24 Range/Units 04:02 WBC (3.8-10.6) k/uL RBC (3.80-5.40) m/uL Hgb (11.4-16.0) gm/dL Hct (34.0-46.0) % MCV (80.0-100.0) fL MCH (25.0-35.0) pg MCHC (31.0-37.0) g/dL RDW (11.5-15.5) % Plt Count (150-450) k/uL MPV Neutrophils % % Lymphocytes % % Monocytes % % Eosinophils % % Basophils % % Neutrophils # (1.3-7.7) k/uL Lymphocytes # (1.0-4.8) k/uL Monocytes # (0-1.0) k/uL Eosinophils # (0-0.7) k/uL Basophils # (0-0.2) k/uL Sodium (137-145) mmol/L Potassium (3.5-5.1) mmol/L Chloride (98-107) mmol/L Carbon Dioxide (22-30) mmol/L Anion Gap mmol/L BUN (7-17) mg/dL Creatinine (0.52-1.04) mg/dL Est GFR (CKD-EPI)AfAm (>60 ml/min/1.73 sqM) Est GFR (CKD-EPI)NonAf (>60 ml/min/1.73 sqM) Glucose (74-99) mg/dL POC Glucose (mg/dL) (70-110) mg/dL POC Glu Insurance Account Assistant ID Plasma Lactic Acid Uri (0.7-2.0) mmol/L Calcium (8.4-10.2) mg/dL Magnesium (1.6-2.3) mg/dL Total Bilirubin (0.2-1.3) mg/dL AST (14-36) U/L ALT (4-34) U/L Alkaline Phosphatase (38-126) U/L Creatine Kinase (30-135) U/L Troponin I (0.000-0.034) ng/mL Total Protein (6.3-8.2) g/dL Albumin (3.5-5.0) g/dL Lipase (23-300) U/L HCG, Quant mIU/mL Urine Color Urine Appearance (Clear) Urine pH (5.0-8.0) Ur Specific Vidal (1.001-1.035) Urine Protein (Negative) Urine Glucose (UA) (Negative) Urine Ketones (Negative) Urine Blood (Negative) Urine Nitrite (Negative) Urine Bilirubin (Negative) Urine Urobilinogen (<2.0) mg/dL Ur Leukocyte Esterase (Negative) Urine Opiates Screen Detected H (NotDetected) Ur Oxycodone Screen Not Detected (NotDetected) Urine Methadone Screen Not Detected (NotDetected) Ur Barbiturates Screen Not Detected (NotDetected) U Tricyclic Antidepress Not Detected (NotDetected) Ur Phencyclidine Scrn Not Detected (NotDetected) Ur Amphetamines Screen Detected H (NotDetected) U Methamphetamines Scrn Not Detected (NotDetected) U Benzodiazepines Scrn Detected H (NotDetected) Urine Cocaine Screen Not Detected (NotDetected) U Marijuana (THC) Screen Not Detected (NotDetected) Serum Alcohol mg/dL Disposition Clinical Impression: Recurrent seizures Disposition: ADMITTED IP TO THIS HOSP Condition: Stable
[2024-07-26] MEDS: MORPHINE SULFATE 4 MG/ML SYRINGE IVP STA (00:53)
[2024-07-26] MEDS: levETIRAcetam IV 3,000 MG in SODIUM CHLORIDE 0.9% 250 ML IVPB ONE (00:55)
[2024-07-26 00:56] LABS: ALT 18 U/L (4-34); AST 22 U/L (14-36); African American GFR (CKD) >90 (>60 ml/min/1.73 sqM); Albumin 4.2 g/dL (3.5-5.0); Alcohol <10 mg/dL; Alkaline Phosphatase 57 U/L (38-126); Anion Gap 8 mmol/L; Blood Urea Nitrogen 21 mg/dL (7-17); Calcium 9.6 mg/dL (8.4-10.2); Carbon Dioxide 25 mmol/L (22-30); Chloride 103 mmol/L (98-107); Creatine Kinase 67 U/L (30-135); Glucose 89 mg/dL (74-99); Lipase 114 U/L (23-300); Magnesium 1.7 mg/dL (1.6-2.3); Non-African American GFR(CKD) >90 (>60 ml/min/1.73 sqM); Potassium 4.2 mmol/L (3.5-5.1); Sodium 136 mmol/L (137-145); Total Bilirubin 0.3 mg/dL (0.2-1.3); Total Protein 7.2 g/dL (6.3-8.2)
[2024-07-26] MEDS: ONDANSETRON 4 MG/2 ML VIAL IVP STA (00:57)
[2024-07-26] MEDS: SODIUM CHLORIDE 0.9% 1,000 ML IV STA (00:57)
[2024-07-26 01:13] LABS: HCG,Quantitative Serum <2.4 mIU/mL
[2024-07-26] MEDS: MAG HYDROX/AL HYDROX/SIMETH 30 ML CUP PO STA (02:33)
[2024-07-26] MEDS: ACETAMINOPHEN TAB 500 MG TAB PO STA (02:33)
[2024-07-26] MEDS ORDERED: IBUPROFEN 400 MG TAB PO PRN (03:01)
[2024-07-26] MEDS ORDERED: clonazePAM 1 MG TAB PO PRN (03:01)
[2024-07-26] MEDS: DICYCLOMINE 20 MG TAB PO STA (03:21)
[2024-07-26 04:30] LABS: Appearance,Urine Clear (Clear); Bilirubin,Urine Negative (Negative); Blood,Urine Negative (Negative); Color,Urine Colorless; Glucose,Urine (UA) Negative (Negative); Ketones,Urine Negative (Negative); Leukocyte Esterase,Urine Negative (Negative); Nitrite,Urine Negative (Negative); PH, Urine 5.5 (5.0-8.0); Protein,Urine Negative (Negative); Specific Gravity,Urine 1.021 (1.001-1.035); Urobilinogen,Urine <2.0 mg/dL (<2.0)
[2024-07-26] MEDS ORDERED: ONDANSETRON 4 MG/2 ML VIAL IVP PRN (04:31)
[2024-07-26] MEDS ORDERED: ACETAMINOPHEN TAB 325 MG TAB PO PRN (04:31)
[2024-07-26] MEDS ORDERED: NALOXONE 0.4 MG/ML 1 ML VIAL IV PRN (04:31)
[2024-07-26] MEDS ORDERED: CALCIUM CARBONATE 500 MG CHEWABLE PO PRN (04:31)
[2024-07-26 04:39] LABS: Amphetamine Screen,Urine Detected (NotDetected); Barbiturate Screen,Urine Not Detected (NotDetected); Benzodiazepines Screen,Urine Detected (NotDetected); Cocaine Screen,Urine Not Detected (NotDetected); Methadone Screen, Urine Not Detected (NotDetected); Opiate Screen,Urine Detected (NotDetected); Oxycodone Screen, Urine Not Detected (NotDetected); Phencyclidine Screen,Urine Not Detected (NotDetected); Tricyclic Antidepressant,Urine Not Detected (NotDetected); Urn Cannabinoid Scrn Not Detected (NotDetected)
[2024-07-26] MEDS: MORPHINE SULFATE 2 MG/ML SYRINGE IVP STA (08:11)
--- NOTE | 2024-07-26 08:33 | XR ---
EXAMINATION TYPE: XR abdomen 2V DATE OF EXAM: 07/26/2024 8:16 AM COMPARISON: 02/28/2024 CLINICAL INDICATION: Female, 29 years old with history of abdominal pain; [facility] TECHNIQUE: Two views of the abdomen were obtained. FINDINGS: Moderate amount stool throughout the colon. The bowel gas pattern is nonspecific without d ilated loops of small or large bowel. . Fecal material and gas are demonstrated throughout the colon and rectum. There is no evidence for organomegaly or pneumoperitoneum. No acute osseous process. No abnormal calcifications are present. IMPRESSION: Nonspecific bowel gas pattern without radiographic evidence for acute process. [facility], , 07/26/2024 8:30 AM
[2024-07-26] MEDS: ZIPRASIDONE 40 MG CAP PO SCH (09:26)
[2024-07-26] MEDS: DICYCLOMINE 20 MG TAB PO SCH (09:26)
[2024-07-26] MEDS: levETIRAcetam 500 MG TAB PO SCH (09:27)
[2024-07-26] MEDS: lamoTRIgine 100 MG TAB PO SCH (09:27)
[2024-07-26] MEDS: FLUDROCORTISONE 0.1 MG TAB PO SCH (09:28)
[2024-07-26] MEDS: FAMOTIDINE 20 MG TAB PO SCH (09:28)
[2024-07-26] MEDS: NON FORMULARY DRUG (Dextroamphetamine/Amphetamine [Adderall] 30 MG Tablet) PO SCH (09:29)
--- NOTE | 2024-07-26 10:54 | P.HPIM ---
History of Present Illness H&P Date: 07/26/24 Chief Complaint: Recurrent seizure/intractable abdominal pain HISTORY OF PRESENT ILLNESS: This is a 29-year-old female new patient of mine that I started seeing a month ago with a prior medical history significant for seizure disorder, epilepsy, absence seizure, multiple drug-resistant organism UTI, bipolar disorder, ADHD, irregular bowel syndrome with diarrhea, history of chronic pain syndrome, polycystic ovarian syndrome, history of POTS, eczema, patient jace carrasco was admitted recently at [facility] because of UTI and she was treated and sent home and followed up with us as an outpatient, was supposed to follow-up with neurology as an outpatient, however the patient came to the emergency department today because of a 3-day recurrent seizure activity according to her patient was driven into the ER by her friend, and EMS ended up taking the patient into the emergency department from the parking lot because she was having seizure activity, apparently she was given a loading dose of Keppra in the ER, her laboratory evaluation were normal, patient also has a complaint of increased intractable abdominal pain of 10 out of 10 intensity and she did receive morphine in the emergency department I gave another dose of morphine, she still having a lot of pain in her stomach, abdominal x-ray did not show evidence of acute abnormalities, patient was started on IV fluid resuscitation in the form of normal saline, her laboratory evaluation including CPK were negative, await neurology consultation, follow-up with the patient very closely REVIEW OF SYSTEMS: Constitutional: Negative for documented fever, no chills, no night sweats. No weight change. positive for weakness, fatigue or lethargy. No daytime sleepiness. EENT: No headache. No blurred vision or double vision, no loss of vision. No loss of Hearing, no ringing in the ears, no dizziness. No nasal drainage or congestion. No epistaxis. No sore throat. Lungs: No shortness of breath, no cough, no sputum production. No wheezing. Reports dyspnea with activity. Cardiovascular: No chest pain, no lower extremity edema. No palpitations. No paroxysmal nocturnal dyspnea. No orthopnea. No lightheadedness or dizziness. No syncopal episodes. Abdominal: Reports abdominal pain. positive for nausea, no vomiting. no diarrhea. No constipation. No bloody or tarry stools reports loss of appetite. Genitourinary: positive for dysuria, increased frequency, positive for urgency. No urinary retention. Musculoskeletal: No myalgias. No muscle weakness, no gait dysfunction, no frequent falls. No back pain. Positive for neck pain. Integumentary: No wounds, no lesions. No rash or pruritus. No unusual bruising. No change in hair or nails. Neurologic: No aphasia. No facial droop. No change in mentation. No head injury. No headache. No paralysis. No paresthesia, reporting recurrent seizures Psychiatric: positive for depression. positive for anxiety. occasional mood sw ings. Endocrine: No abnormal blood sugars. No weight change. PAST MEDICAL HISTORY: Rheumatoid arthritis. Seizure disorder. Seizure disorder/ epilepsy absence seizure History of multidrug-resistant organism UTI. Bipolar disorder. ADHD Anxiety. Irritable bowel syndrome with diarrhea Right medial meniscal tear with ACL tear Left shoulder labral tear and rotator cuff tear status post surgery 2018 Neck pain. Polycystic ovarian syndrome Eczema. POTS. PAST SURGICAL HISTORY: Left shoulder surgery 2018 tubal ligation. SOCIAL HISTORY: Patient denies a history of smoking, she vapes, she denies any alcohol ingestion, no drug use or abuse. FAMILY HISTORY: Mother is 69-year-old with history of cervical cancer and ovarian cancer status post total abdominal hysterectomy bilateral salpingo-oophorectomy also she did have a history of anxiety, father is 69-year-old with history of hypertension as well as anxiety patient has 1 brother 22-year-old with history of hypertension she has no sisters, her maternal grandmother diagnosed with ITP, her maternal aunt diagnosed with rheumatoid arthritis as well as eczema. PHYSICAL EXAMINATION: General: 29-year-old female laying down in bed in minimal distress HEENT: Head is atraumatic, normocephalic, pupils were equal round reactive to light and recommendation, extraocular muscle movement were intact, sclera nonicteric, conjunctivae were pale, mucous membranes of the mouth are somewhat dry. Neck: Supple, no JVP, normal carotid upstroke bilaterally, no lymphadenopathy. Chest: Decreased breath sounds at the bases, few rhonchi, no expiratory wheezes, no chest wall tenderness, no intercostal retractions. Heart: First heart sound is normal, second heart sounds normal no gallop or murmur. Abdomen: Soft, mild nonspecific tenderness, nondistended, positive bowel sounds. Extremities: There is no edema no calf tenderness DP +2 bilaterally. Neurologic examination: Patient is awake alert and oriented x3, cranial nerves II-12 appear grossly intact, muscle power were 5 out of 5 in upper extremities and 5 out of 5 in bilateral lower extremities, deep tendon reflexes normal bilaterally. ASSESSMENT AND PLAN: 1. Recurrent seizures in a patient with a prior history of seizure disorder. Patient was admitted to the hospital for evaluation by cardiology, she did receive a loading dose of Keppra 1000 mg IV mag x 1, check Keppra level, follow- up with the patient very closely, last Keppra level in the office was slightly elevated, was supposed to decrease her Keppra to 1500 mg twice a day patient never did EEG will be done, CT scan of the brain did not show evidence of acute abnormalities, we will follow-up with the patient very closely 2. Intractable abdominal pain abdominal x-ray did not show evidence of acute abnormalities, start the patient on morphine sulfate 2 mg IV push every 4 hours as needed 3. History of rheumatoid arthritis. Patient does not appear to have any evidence of any synovitis at this point in time. 4. Seizure disorder/absence seizure continue Keppra 2000 mg orally twice every day as well as Lamictal 100 mg orally twice every day. Await neurology evaluation 5. Bipolar disorder/depression continue Lamictal 100 mg orally twice every day, Geodon 40 mg orally twice every day, 6. Attention deficit disorder. Hold stimulant while she is in the hospital. 7. Anxiety disorder. Continue patient on current psychotropic medication. Hold off Klonopin for now. 8. History of POTS. Continue Florinef 0.1 mg orally once every day. 9. History of polycystic ovarian syndrome. Stable at this time. 10. History of chronic neck pain. Stable at this time. 11. DVT prophylaxis. Bilateral knee-high KALANI hose early ambulation, heparin 5000 units subcutaneously every 12 hours. 12. GI prophylaxis. famotidine 20 mg orally once every day. 13. Admit to inpatient. Estimated length of stay 2 midnights 14. Full code Past Medical History Past Medical History: Rheumatoid Arthritis (RA), Seizure Disorder Additional Past Medical History / Comment(s): Autonomic dysfunction. Lopez, crohns, bladder infection since - History of Any Multi-Drug Resistant Organisms: Other MDRO Date of last positivie culture/infection: 2023 MDRO Source:: kidney- E. Coli Past Surgical History: Tubal Ligation Additional Past Surgical History / Comment(s): left shoulder surgery in 2018 Past Psychological History: ADD/ADHD, Anxiety, Bipolar Smoking Status: Vaper Past Alcohol Use History: None Reported Past Drug Use History: Marijuana Medications and Allergies Home Medications Medication Instructions Recorded Confirmed Type Dextroamphetamine/Amphetamine 30 mg PO BID@0900,1600 02/23/24 07/26/24 History [Adderall] clonazePAM [KlonoPIN] 1 mg PO BID PRN 02/23/24 07/26/24 History Ziprasidone [Geodon] 40 mg PO BID 03/06/24 07/26/24 History lamoTRIgine [LaMICtal] 100 mg PO BID #90 tab 03/17/24 07/26/24 Rx Dicyclomine [Bentyl] 20 mg PO QID #40 tablet 04/19/24 07/26/24 Rx Fludrocortisone [Florinef] 0.1 mg PO DAILY #30 tab 04/19/24 07/26/24 Rx Acetaminophen Tab [Tylenol] 1,000 mg PO Q6HR PRN 07/03/24 07/26/24 History Ibuprofen [Motrin Ib] 400 mg PO Q6H PRN 07/03/24 07/26/24 History levETIRAcetam [Keppra] 2,000 mg PO BID 07/03/24 07/26/24 History Gabapentin [Neurontin] 300 mg PO BID 07/26/24 07/26/24 History Allergies Allergy/AdvReac Type Severity Reaction Status Date / Time pantoprazole [From Protonix] Allergy Rash/Hives/Abdominal Verified 07/26/24 07:59 pain trazodone Allergy Rash/Hives/Increased Verified 07/26/24 07:59 Heart Rate Physical Exam Vitals: Vital Signs Temp Pulse Resp BP Pulse Ox 07/26/24 06:00 107 H 16 94/57 95 07/26/24 04:00 98.5 F 106 H 13 104/65 95 07/26/24 01:13 81 16 99/71 95 07/26/24 00:10 98.2 F 72 17 104/71 100 Intake and Output 07/25/24 07/26/24 07/26/24 22:59 06:59 14:59 Other: Weight 54.431 kg Results CBC & Chem 7: 07/26/24 00:20 07/26/24 00:20 Labs: Abnormal Lab Results - Last 24 Hours (Table) 07/26/24 07/26/24 Range/Units 00:20 04:02 Sodium 136 L (137-145) mmol/L BUN 21 H (7-17) mg/dL Urine Opiates Screen Detected H (NotDetected) Ur Amphetamines Screen Detected H (NotDetected) U Benzodiazepines Scrn Detected H (NotDetected)
[2024-07-26] MEDS: SODIUM CHLORIDE 0.9% 1,000 ML IV SCH (13:24)
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
[2024-07-26] MEDS: MORPHINE SULFATE 2 MG/ML SYRINGE IVP PRN (15:39)
[2024-07-26] MEDS: GABAPENTIN 300 MG CAP PO SCH (20:28)
[2024-07-26] MEDS: ALPRAZolam 0.25 MG TAB PO PRN (22:48)
[2024-07-27 01:20] LABS: HCT 36.4 % (34.0-46.0); HGB 12.3 gm/dL (11.4-16.0); MCH 29.7 pg (25.0-35.0); MCHC 33.7 g/dL (31.0-37.0); MCV 88.2 fL (80.0-100.0); Mean Platelet Volume 7.2; Platelet Count 249 k/uL (150-450); RBC 4.12 m/uL (3.80-5.40); RDW 12.1 % (11.5-15.5); WBC 7.8 k/uL (3.8-10.6)
[2024-07-27 09:20] LABS: Basophils % (A) 1 %; Eosinophils # (A) 0.2 k/uL (0-0.7); Eosinophils % (A) 3 %; HCT 41.7 % (34.0-46.0); HGB 13.8 gm/dL (11.4-16.0); Lymphocytes # (A) 2.2 k/uL (1.0-4.8); Lymphocytes % (A) 29 %; MCH 29.4 pg (25.0-35.0); MCHC 33.1 g/dL (31.0-37.0); MCV 88.7 fL (80.0-100.0); Mean Platelet Volume 7.4; Monocytes # (A) 0.3 k/uL (0-1.0); Monocytes % (A) 5 %; Neutrophils # (A) 4.6 k/uL (1.3-7.7); Neutrophils % (A) 61 %; Platelet Count 270 k/uL (150-450); RDW 12.2 % (11.5-15.5); WBC 7.5 k/uL (3.8-10.6)
[2024-07-27 09:41] LABS: ALT 17 U/L (4-34); AST 20 U/L (14-36); African American GFR (CKD) >90 (>60 ml/min/1.73 sqM); Albumin 3.9 g/dL (3.5-5.0); Alkaline Phosphatase 59 U/L (38-126); Anion Gap 7 mmol/L; Blood Urea Nitrogen 11 mg/dL (7-17); Carbon Dioxide 27 mmol/L (22-30); Chloride 101 mmol/L (98-107); Glucose 92 mg/dL (74-99); Non-African American GFR(CKD) >90 (>60 ml/min/1.73 sqM); Potassium 4.1 mmol/L (3.5-5.1); Sodium 135 mmol/L (137-145); Total Bilirubin 0.4 mg/dL (0.2-1.3); Total Protein 6.8 g/dL (6.3-8.2)
--- NOTE | 2024-07-27 10:29 | P.PN ---
Subjective Progress Note Date: 07/27/24 HISTORY OF PRESENT ILLNESS: This is a 29-year-old female new patient of [facility] that I started seeing a month ago with a prior medical history significant for seizure disorder, epilepsy, absence seizure, multiple drug-resistant organism UTI, bipolar disorder, ADHD, irregular bowel syndrome with diarrhea, history of chronic pain syndrome, polycystic ovarian syndrome, history of POTS, eczema, patient apparently was admitted recently at [facility] because of UTI and she was treated and sent home and followed up with us as an outpatient, was supposed to follow-up with neurology as an outpatient, however the patient came to the emergency department today because of a 3-day recurrent seizure activity according to her patient was driven into the ER by her friend, and EMS ended up taking the patient into the emergency department from the parking lot because she was having seizure activity, apparently she was given a loading dose of Keppra in the ER, her laboratory evaluation were normal, patient also has a complaint of increased intractable abdominal pain of 10 out of 10 intensity and she did receive morphine in the emergency department I gave another dose of morphine, she still having a lot of pain in her stomach, abdominal x-ray did not show evidence of acute abnormalities, patient was started on IV fluid resuscitation in the form of normal saline, her laboratory evaluation including CPK were negative, await neurology consultation, follow-up with the patient very closely 07/27: Patient is laying down in bed in no apparent distress at this time, she continued have some abdominal pain, she has had a bowel movement yesterday, she denies any chest pain or shortness of breath, she has not had any seizure activity, she was seen in consultation by neurology, her Keppra level was elevated at 90, I will decrease her dose to 1000 mg orally twice every day repeat her levels again in about 4 weeks, it was recommended by neurology for the patient to go for 1 hour EEG today, for further evaluation recommendation, she will need to follow-up with neurology as an outpatient, if she is cleared by neurology later on today she can be discharged home follow-up with me as an outpatient REVIEW OF SYSTEMS: Constitutional: Negative for documented fever, no chills, no night sweats. No weight change. positive for weakness, fatigue or lethargy. No daytime sleepiness. EENT: No headache. No blurred vision or double vision, no loss of vision. No loss of Hearing, no ringing in the ears, no dizziness. No nasal drainage or congestion. No epistaxis. No sore throat. Lungs: No shortness of breath, no cough, no sputum production. No wheezing. Reports dyspnea with activity. Cardiovascular: No chest pain, no lower extremity edema. No palpitations. No paroxysmal nocturnal dyspnea. No orthopnea. No lightheadedness or dizziness. No syncopal episodes. Abdominal: Reports abdominal pain. positive for nausea, no vomiting. no diarrhea. No constipation. No bloody or tarry stools reports loss of appetite. Genitourinary: positive for dysuria, increased frequency, positive for urgency. No urinary retention. Musculoskeletal: No myalgias. No muscle weakness, no gait dysfunction, no frequent falls. No back pain. Positive for neck pain. Integumentary: No wounds, no lesions. No rash or pruritus. No unusual bruising. No change in hair or nails. Neurologic: No aphasia. No facial droop. No change in mentation. No head injury. No headache. No paralysis. No paresthesia, reporting recurrent seizures Psychiatric: positive for depression. positive for anxiety. occasional mood swings. Endocrine: No abnormal blood sugars. No weight change. PHYSICAL EXAMINATION: General: 29-year-old female laying down in bed in minimal distress HEENT: Head is atraumatic, normocephalic, pupils were equal round reactive to light and recommendation, extraocular muscle movement were intact, sclera nonicteric, conjunctivae were pale, mucous membranes of the mouth are somewhat dry. Neck: Supple, no JVP, normal carotid upstroke bilaterally, no lymphadenopathy. Chest: Decreased breath sounds at the bases, few rhonchi, no expiratory wheezes, no chest wall tenderness, no intercostal retractions. Heart: First heart sound is normal, second heart sounds normal no gallop or murmur. Abdomen: Soft, mild nonspecific tenderness, nondistended, positive bowel sounds. Extremities: There is no edema no calf tenderness DP +2 bilaterally. Neurologic examination: Patient is awake alert and oriented x3, cranial nerves II-12 appear grossly intact, muscle power were 5 out of 5 in upper extremities and 5 out of 5 in bilateral lower extremities, deep tendon reflexes normal sameer aterally. ASSESSMENT AND PLAN: 1. Recurrent seizures in a patient with a prior history of seizure disorder. Patient was seen in consultation by neurology, she is scheduled for a 1 hour EEG, her Keppra level is elevated at 90 we will decrease to 1000 mg orally twice every day, continue Lamictal 100 mg orally twice every day, patient will need to follow-up with neurologist as an outpatient, patient will be discharged home this afternoon if she is cleared by neurology. 2. Intractable abdominal pain abdominal x-ray did not show evidence of acute abnormalities, appears to be stable at this time, continue pain management as needed. 3. History of rheumatoid arthritis. Patient does not appear to have any evidence of any synovitis at this point in time. 4. Seizure disorder/absence seizure continue Keppra and decrease the dose to 1000 mg orally twice every day as well as Lamictal 100 mg orally twice every day. neurology consultation appreciated. 5. Bipolar disorder/depression continue Lamictal 100 mg orally twice every day, Geodon 40 mg orally twice every day, 6. Attention deficit disorder.patient is currently on Adderall. 7. Anxiety disorder. Continue patient on current psychotropic medication. 8. History of POTS. Continue Florinef 0.1 mg orally once every day. 9. History of polycystic ovarian syndrome. Stable at this time. 10. History of chronic neck pain. Stable at this time. 11. DVT prophylaxis. Bilateral knee-high KALANI hose early ambulation, heparin 5000 units subcutaneously every 12 hours. 12. GI prophylaxis. famotidine 20 mg orally once every day. 13. Home this afternoon if she is cleared by neurology. Objective - Vital Signs Vital signs: Vital Signs Temp 98.0 F 07/27/24 07:55 Pulse 76 07/27/24 07:55 Resp 16 07/27/24 07:55 BP 84/55 07/27/24 07:55 Pulse Ox 97 07/27/24 07:55 FiO2 Intake & Output 07/26/24 07/27/24 07/27/24 18:59 06:59 18:59 Weight 54.431 kg Other: # Voids 1 - Labs CBC & Chem 7: 07/27/24 08:55 07/27/24 08:55 Labs: Abnormal Lab Results - Last 24 Hours (Table) 07/26/24 07/27/24 Range/Units 11:43 08:55 Sodium 135 L (137-145) mmol/L Levetiracetam 92.7 H (3.0-60.0) ug/mL
[2024-07-27 10:47] VITALS: BMI 23.4
--- NOTE | 2024-07-27 18:08 | P.PN ---
Subjective Progress Note Date: 07/27/24 Patient was seen for follow-up. Patient is sitting comfortably in the bed. No further seizures. No new concerns. Objective - Vital Signs Vital signs: Vital Signs Temp 98.3 F 07/27/24 12:00 Pulse 91 07/27/24 12:00 Resp 16 07/27/24 12:00 BP 122/84 07/27/24 12:00 Pulse Ox 98 07/27/24 12:00 FiO2 Intake & Output 07/26/24 07/27/24 07/27/24 18:59 06:59 18:59 Intake Total 1650 Balance 1650 Weight 54.431 kg 54.431 kg Intake: Intake, IV Titration 900 Amount Sodium Chloride 0.9% 1, 900 000 ml @ 100 mls/hr IV . Q10H JULIA Rx#:[id number] Oral 750 Other: # Voids 1 3 # Bowel Movements 1 - Exam Normal. - Labs CBC & Chem 7: 07/27/24 08:55 07/27/24 08:55 Labs: Abnormal Lab Results - Last 24 Hours (Table) 07/26/24 07/27/24 Range/Units 11:43 08:55 Sodium 135 L (137-145) mmol/L Levetiracetam 92.7 H (3.0-60.0) ug/mL Assessment and Plan Assessment: * Seizure disorder, came with breakthrough seizures. Patient states her seizures are triggered by emotional stress and she was under a lot of stress yesterday that triggered this seizure. Prior to that, she was doing well, with no seizures since February 2024. * Seizure disorder * History of bipolar disorder * Memory disturbance, probably multifactorial. May be related to ?seizures versus bipolar disorder versus medication side effect versus ADD. Patient on Adderall. Plan: * Patient's Keppra level 92.7 (3-60). Lamictal level 4.6 (2-15) * Continue same dose of Lamictal 100 mg twice daily. * We will decrease Keppra from 2000 mg twice daily down to 1500 mg twice daily. * Patient believes that her current flurry of seizures was triggered because of "severe emotional stress". * Recommend patient follow-up with epileptologist at epilepsy monitoring unit for evaluation of seizure disorder, to rule out epileptic versus nonepileptic seizures. * Patient is aware of [place] state law of no driving unless seizure-free for 6 months, climbing ladders, or operating dangerous machinery or unsupervised swi mming. * Neurologically clear for discharge with above recommendations.
[2024-07-27] MEDS: HEPARIN SODIUM,PORCINE 5,000 UNIT/ML 1 ML VIAL SQ SCH (20:01)
[2024-07-27] MEDS ORDERED: levETIRAcetam 500 MG TAB PO SCH (21:00)
[2024-07-28 08:05] VITALS: BP 91/55; PULSE 90; RESP 16; TEMP 98.2
[2024-07-28] MEDS: MORPHINE SULFATE 4 MG/ML SYRINGE IVP PRN (09:43)
--- NOTE | 2024-07-28 10:45 | P.DS ---
Providers Date of admission: 07/26/24 04:32 Expected date of discharge: 07/28/24 Attending physician: Po Hernandez Consults: 07/26/24 04:31 Consult Physician Routine Consulting Provider: Angela Rutledge Consult Reason/Comments: Multiple seizures Do you want consulting provider notified?: Yes, Notify in am Primary care physician: Po Hernandez Hospital Course: HISTORY OF PRESENT ILLNESS: This is a 29-year-old female new patient of [facility] that I started seeing a month ago with a prior medical history significant for seizure disorder, epilepsy, absence seizure, multiple drug-resistant organism UTI, bipolar disorder, ADHD, irregular bowel syndrome with diarrhea, history of chronic pain syndrome, polycystic ovarian syndrome, history of POTS, eczema, patient apparently was admitted recently at [facility] because of UTI and she was treated and sent home and followed up with us as an outpatient, was supposed to follow-up with neurology as an outpatient, however the patient came to the emergency department today because of a 3-day recurrent seizure activity according to her patient was driven into the ER by her friend, and EMS ended up taking the patient into the emergency department from the parking lot because she was having seizure activity, apparently she was given a loading dose of Keppra in the ER, her laboratory evaluation were normal, patient also has a complaint of increased intractable abdominal pain of 10 out of 10 intensity and she did receive morphine in the emergency department I gave another dose of morphine, she still having a lot of pain in her stomach, abdominal x-ray did not show evidence of acute abnormalities, patient was started on IV fluid resuscitation in the form of normal saline, her laboratory evaluation including CPK were negative, await neurology consultation, follow-up with the patient very closely 07/27: Patient is laying down in bed in no apparent distress at this time, she continued have some abdominal pain, she has had a bowel movement yesterday, she denies any chest pain or shortness of breath, she has not had any seizure activity, she was seen in consultation by neurology, her Keppra level was elevated at 90, I will decrease her dose to 1000 mg orally twice every day repeat her levels again in about 4 weeks, it was recommended by neurology for the patient to go for 1 hour EEG today, for further evaluation recommendation, she will need to follow-up with neurology as an outpatient, if she is cleared by neurology later on today she can be discharged home follow-up with me as an outpatient 07/28: Patient has been seen and followed by neurology and concern is that patient's memory disturbance could be related to very high levels of Keppra. She has had no further seizure activity and no new concerns. Plan from neurology was to decrease Keppra from 2000 mg twice daily down to 1500 mg twice daily and continue same dose of Lamictal at 100 mg twice daily. Breakthrough seizures are thought to be triggered because of severe emotional stress. Patient will then follow-up with epileptologist at the epilepsy monitoring unit. She has been advised about no driving for 6 months. Blood pressure 91/55- 130/87, heart rate in the 80s. She will be discharged home today in stable condition. DISCHARGE DIAGNOSES: 1. Recurrent seizures in a patient with a prior history of seizure disorder. 2. Intractable abdominal pain abdominal x-ray did not show evidence of acute abnormalities, appears to be stable. 3. History of rheumatoid arthritis. 4. Seizure disorder/absence seizure. 5. Bipolar disorder/depression. 6. Attention deficit disorder. 7. Anxiety disorder. 8. History of POTS. 9. History of polycystic ovarian syndrome. 10. History of chronic neck pain. Greater than 35 minutes was utilized and coordinating patient's discharge. Impression and plan of care have been directed as dictated by the signing physician. Zoila Dyson nurse practitioner acting as scribe for signing ysician. Patient Condition at Discharge: Stable Plan - Discharge Summary New Discharge Prescriptions: Continue lamoTRIgine [LaMICtal] 100 mg PO BID #90 tab Ibuprofen [Motrin Ib] 400 mg PO Q6H PRN PRN Reason: Fever And/ Or Pain clonazePAM [KlonoPIN] 1 mg PO BID PRN PRN Reason: Anxiety Dextroamphetamine/Amphetamine [Adderall] 30 mg PO BID@0900,1600 Ziprasidone [Geodon] 40 mg PO BID Dicyclomine [Bentyl] 20 mg PO QID #40 tablet Fludrocortisone [Florinef] 0.1 mg PO DAILY #30 tab Acetaminophen Tab [Tylenol] 1,000 mg PO Q6HR PRN PRN Reason: Fever And/ Or Pain Gabapentin [Neurontin] 300 mg PO BID Changed levETIRAcetam [Keppra] 1,500 mg PO BID #0 Discharge Medication List Dextroamphetamine/Amphetamine [Adderall] 30 mg PO BID@0900,1600 02/23/24 [History] clonazePAM [KlonoPIN] 1 mg PO BID PRN 02/23/24 [History] Ziprasidone [Geodon] 40 mg PO BID 03/06/24 [History] lamoTRIgine [LaMICtal] 100 mg PO BID #90 tab 03/17/24 [Rx] Dicyclomine [Bentyl] 20 mg PO QID #40 tablet 04/19/24 [Rx] Fludrocortisone [Florinef] 0.1 mg PO DAILY #30 tab 04/19/24 [Rx] Acetaminophen Tab [Tylenol] 1,000 mg PO Q6HR PRN 07/03/24 [History] Ibuprofen [Motrin Ib] 400 mg PO Q6H PRN 07/03/24 [History] Gabapentin [Neurontin] 300 mg PO BID 07/26/24 [History] levETIRAcetam [Keppra] 1,500 mg PO BID #0 07/28/24 [Rx] Follow up Appointment(s)/Referral(s): Po Hernandez MD [Primary Care Provider] - 1 Week Discharge/Stand Alone Forms: [facility], [facility] Discharge Disposition: HOME SELF-CARE
[2024-07-28] MEDS ORDERED: MORPHINE SULFATE 2 MG/ML SYRINGE IVP PRN (12:34)
== END 2024-07-28 12:36 | disposition home or self-care (01) ==
LOC: EC 00:06 → 3SCARD 04:32 → 6NMEDSUR 16:55 → 1SOBS 19:46
PROVIDERS: ADMIT Internal Medicine; ATTEND Internal Medicine
DX: G40.A09 Absence epileptic syndrome, not intractable, without status epilepticus (principal); R10.9 Unspecified abdominal pain; F31.9 Bipolar disorder, unspecified; F41.9 Anxiety disorder, unspecified; F90.9 Attention-deficit hyperactivity disorder, unspecified type; G90.A Postural orthostatic tachycardia syndrome [POTS]; M06.9 Rheumatoid arthritis, unspecified; E28.2 Polycystic ovarian syndrome; M54.2 Cervicalgia; G89.4 Chronic pain syndrome; K58.0 Irritable bowel syndrome with diarrhea; Z79.899 Other long term (current) drug therapy; Z79.52 Long term (current) use of systemic steroids
CPT/HCPCS: 96361 ×2; 96372 ×2; 96376 ×3; 96374; 96375; 99285; 36415; 93005; 80053 ×2; 80175; 80177; 82550; 83605; 83690; 83735; 84484; 85025 ×2; 85027; 82272; 81003; 84702; 80306; 74019; G0378 ×5; G0480; J2060; J2270 ×5; J1644 ×2; J2405; J1953; 80320

== ENCOUNTER 2024-08-10 21:00 | Emergency (ER) | payer OTHER ==
[2024-08-10 21:09] VITALS: RESP 16; TEMP 99
--- NOTE | 2024-08-10 21:40 | ED ---
General Adult HPI - General Source: patient, RN notes reviewed Mode of arrival: ambulatory Limitations: no limitations - History of Present Illness Onset/Timin -: week(s) Severity scale (1-10): 0 Associated Symptoms: nausea/vomiting Treatments Prior to Arrival: none <Pete Preston - Last Filed: 08/10/24 23:56> <Fifi Goldberg - Last Filed: 08/11/24 03:31> - General Chief complaint: Recheck/Abnormal Lab/Rx Stated complaint: abd pain Time Seen by Provider: 08/10/24 21:17 - History of Present Illness Initial comments: This is a 29-year-old female with history of tubal ligation and seizures presenting for abdominal distention x 1 month. Patient states she has gained almost 40 pounds in the past month with associated breast tenderness, nausea. Patient states she is sexually active with her LMP being on 05/28/2024. Patient states she normally has abnormal menstrual cycles. States lower abdomen feels "hard" and increasing in size. Patient denies associated pain, anorexia, vaginal bleeding, urinary symptoms, constipation. Denies fever, chills, chest pain, dyspnea, vomiting, diarrhea. (Pete Preston) - Related Data Home Medications Medication Instructions Recorded Confirmed Dextroamphetamine/Amphetamine 30 mg PO BID@0900,1600 02/23/24 07/26/24 [Adderall] clonazePAM [KlonoPIN] 1 mg PO BID PRN 02/23/24 07/26/24 Ziprasidone [Geodon] 40 mg PO BID 03/06/24 07/26/24 Acetaminophen Tab [Tylenol] 1,000 mg PO Q6HR PRN 07/03/24 07/26/24 Ibuprofen [Motrin Ib] 400 mg PO Q6H PRN 07/03/24 07/26/24 Gabapentin [Neurontin] 300 mg PO BID 07/26/24 07/26/24 Previous Rx's Medication Instructions Recorded lamoTRIgine [LaMICtal] 100 mg PO BID #90 tab 03/17/24 Dicyclomine [Bentyl] 20 mg PO QID #40 tablet 04/19/24 Fludrocortisone [Florinef] 0.1 mg PO DAILY #30 tab 04/19/24 levETIRAcetam [Keppra] 1,500 mg PO BID #0 07/28/24 Allergies Allergy/AdvReac Type Severity Reaction Status Date / Time pantoprazole [From Protonix] Allergy Rash/Hives/Abdominal Verified 08/10/24 21:09 pain trazodone Allergy Rash/Hives/Increased Verified 08/10/24 21:09 Heart Rate Review of Systems ROS Other: All systems not noted in ROS Statement are negative. <Pete Preston - Last Filed: 08/10/24 23:56> ROS Other: All systems not noted in ROS Statement are negative. <Fifi Goldberg - Last Filed: 08/11/24 03:31> ROS Statement: Those systems with pertinent positive or pertinent negative responses have been documented in the HPI. Past Medical History Past Medical History: Rheumatoid Arthritis (RA), Seizure Disorder Additional Past Medical History / Comment(s): Autonomic dysfunction. Lopez, crohns, bladder infection since 06-21 History of Any Multi-Drug Resistant Organisms: Other MDRO Date of last positivie culture/infection: 2023 MDRO Source:: kidney- E. Coli Past Surgical History: Tubal Ligation Additional Past Surgical History / Comment(s): left shoulder surgery in 2018 Past Psychological History: ADD/ADHD, Anxiety, Bipolar Smoking Status: Vaper Past Alcohol Use History: None Reported Past Drug Use History: Marijuana <Pete Preston - Last Filed: 08/10/24 23:56> General Exam Limitations: no limitations General appearance: alert, in no apparent distress Head exam: Present: atraumatic, normocephalic, normal inspection Eye exam: Present: normal appearance, PERRL, EOMI. Absent: scleral icterus, conjunctival injection, periorbital swelling ENT exam: Present: normal exam, mucous membranes moist Neck exam: Present: normal inspection. Absent: tenderness, meningismus, lymphadenopathy Respiratory exam: Present: normal lung sounds bilaterally. Absent: respiratory distress, wheezes, rales, rhonchi, stridor, accessory muscle use Cardiovascular Exam: Present: regular rate, normal rhythm, normal heart sounds. Absent: systolic murmur, diastolic murmur, rubs, gallop, clicks GI/Abdominal exam: Present: soft, distended (Generalized lower abdominal distention), normal bowel sounds. Absent: tenderness, guarding, rebound, rigid, mass, pulsatile mass, hernia Extremities exam: Present: normal inspection, full ROM, normal capillary refill. Absent: tenderness, pedal edema, joint swelling, calf tenderness Back exam: Present: normal inspection. Absent: CVA tenderness (R), CVA tenderness (L) Neurological exam: Present: alert, oriented X3, CN II-XII intact Psychiatric exam: Present: normal affect, normal mood Skin exam: Present: warm, dry, intact, normal color. Absent: rash <Pete Preston - Last Filed: 08/10/24 23:56> Course Vital Signs 08/10/24 08/11/24 21:02 01:18 Temperature 99.0 F Pulse Rate 92 80 Respiratory 16 16 Rate Blood Pressure 124/83 123/76 O2 Sat by Pulse 97 98 Oximetry Medical Decision Making - Lab Data Result diagrams: 08/10/24 22:05 08/10/24 22:05 <Pete Preston - Last Filed: 08/10/24 23:56> - Lab Data Result diagrams: 08/10/24 22:05 08/10/24 22:05 <Fifi Goldberg - Last Filed: 08/11/24 03:31> - Medical Decision Making Was pt. sent in by a medical professional or institution (Dr. PA, YARN INSPECTOR, urgent care, hospital, or shelter...) When possible be specific @ -[No] Did you speak to anyone other than the patient for history (EMS, parent, family, police, friend...)? What history was obtained from this source @ -[No] Did you review nursing and triage notes (agree or disagree)? Why? @ -[I reviewed and agree with nursing and triage notes] Were old charts reviewed (outside hosp., previous admission, EMS record, old EKG, old radiological studies, urgent care reports/EKG's, shelter records)? Report findings @ -[No old charts were reviewed] Differential Diagnosis (chest pain, altered mental status, abdominal pain women, abdominal pain men, vaginal bleeding, weakness, fever, dyspnea, syncope, headache, dizziness, GI bleed, back pain, seizure, CVA, palpatations, mental health, musculoskeletal)? @ -Differential Abdominal Pain Women: Appendicitis, Cholecystitis, diverticulosis, ischemic bowel, pancreatitis, hepatitis, UTI, gastroenteritis, AAA, incarcerated hernia, bowel obstruction, constipation, inflammatory bowel, hepatitis, peptic ulcer disease, splenic infarction, perforated viscus, vulvitis, ovarian torsion, PID, kidney stone, placenta abruption, this is not meant to be an all-inclusive list EKG interpreted by me (3pts min.). @ -Not done X-rays interpreted by me (1pt min.). @ -[None done] CT interpreted by me (1pt min.). @ -[None done] U/S interpreted by me (1pt. min.). @ -[None done] What testing was considered but not performed or refused? (CT, X-rays, U/S, labs)? Why? @ -[None] What meds were considered but not given or refused? Why? @ -[None] Did you discuss the management of the patient with other professionals (professionals i.e. , PA, YARN INSPECTOR, lab, RT, psych nurse, manager social work, stripper apprentice, teacher, ambulance officer, case operator)? Give summary @ -[No] Was smoking cessation discussed for >3mins.? @ -[No] Was critical care preformed (if so, how long)? @ -[No] Were there social determinants of health that impacted care today? How? (Homelessness, low income, unemployed, alcoholism, drug addiction, transportation, low edu. Level, literacy, decrease access to med. care, fpc, rehab)? @ -[No] Was there de-escalation of care discussed even if they declined (Discuss DNR or withdrawal of care, Hospice)? DNR status @ -[No] What co-morbidities impacted this encounter? (DM, HTN, Smoking, COPD, CAD, Cancer, CVA, ARF, Chemo, Hep., AIDS, mental health diagnosis, sleep apnea, morbid obesity)? @ -[None] Was patient admitted / discharged? Hospital course, mention meds given and route, prescriptions, significant lab abnormalities, going to OR and other pertinent info. @ -[hospital course] Undiagnosed new problem with uncertain prognosis? @ -[No] Drug Therapy requiring intensive monitoring for toxicity (Heparin, Nitro, Insulin, Cardizem)? @ -[No] Were any procedures done? @ -[No] Diagnosis/symptom? @ -[default] Acute, or Chronic, or Acute on Chronic? @ -Acute Uncomplicated (without systemic symptoms) or Complicated (systemic symptoms)? @ -Uncomplicated Side effects of treatment? @ -[No] Exacerbation, Progression, or Severe Exacerbation? @ -[No] Poses a threat to life or bodily function? How? (Chest pain, [place], [place], pneumonia, PE, COPD, DKA, ARF, appy, cholecystitis, CVA, Diverticulitis, Homicidal, Suicidal, threat to staff... and all critical care pts) @ -[No] (Pete Preston) Patient signed out to me pending CT results. CT shows no acute findings in the abdomen or pelvis. Lab work is unimpressive. On reassessment patient is resting comfortably in the stretcher showing no acute signs of distress. She is educated on today's findings. Follow-up with PCP. Report back to ER with any new or worsening symptoms. Discussed return parameters and answered all questions. Patient conveyed verbal understanding and agreed to the plan. I discussed this case in detail with my attending Dr. Monge ([facility]) - Lab Data Lab Results 08/10/24 08/10/24 08/10/24 Range/Units 21:37 21:37 22:05 WBC 10.08 H (4.50-10.00) 10*3/uL RBC 4.40 (4.10-5.20) 10*6/uL Hgb 13.4 (12.0-15.0) g/dL Hct 38.3 (37.2-46.3) % MCV 87.0 (80.0-97.0) fL MCH 30.5 (27.0-32.0) pg MCHC 35.0 (32.0-37.0) g/dL Plt Count 315 (140-440) 10*3/uL MPV 10.0 (9.5-12.2) fL Immature Gran % (Auto) 0.3 % Neutrophils % 64.9 % Lymphocytes % 24.5 % Monocytes % 7.6 % Eosinophils % 2.0 % Basophils % 0.7 % Immature Gran # 0.03 (0.00-0.04) 10*3/uL Neutrophils # 6.54 (1.80-7.70) 10*3/uL Lymphocytes # 2.47 (0.90-5.00) 10*3/uL Monocytes # 0.77 (0.20-1.00) 10*3/uL Eosinophils # 0.20 (0.04-0.35) 10*3/uL Basophils # 0.07 (0.00-0.10) 10*3/uL Sodium (137-145) mmol/L Potassium (3.5-5.1) mmol/L Chloride (98-107) mmol/L Carbon Dioxide (22-30) mmol/L Anion Gap mmol/L BUN (7-17) mg/dL Creatinine (0.52-1.04) mg/dL Est GFR (CKD-EPI)AfAm (>60 ml/min/1.73 sqM) Est GFR (CKD-EPI)NonAf (>60 ml/min/1.73 sqM) Glucose (74-99) mg/dL Plasma Lactic Acid Uri (0.7-2.0) mmol/L Calcium (8.4-10.2) mg/dL Total Bilirubin (0.2-1.3) mg/dL AST (14-36) U/L ALT (4-34) U/L Alkaline Phosphatase (38-126) U/L Total Protein (6.3-8.2) g/dL Albumin (3.5-5.0) g/dL Lipase (23-300) U/L Urine Color Light Yellow Urine Appearance Clear (Clear) Urine pH 5.5 (5.0-8.0) Ur Specific [place] 1.024 (1.001-1.035) Urine Protein Negative (Negative) Urine Glucose (UA) Negative (Negative) Urine Ketones Negative (Negative) Urine Blood Small H (Negative) Urine Nitrite Negative (Negative) Urine Bilirubin Negative (Negative) Urine Urobilinogen <2.0 (<2.0) mg/dL Ur Leukocyte Esterase Trace H (Negative) Urine RBC 6 H (0-5) /hpf Urine WBC 4 (0-5) /hpf Ur Squamous Epith Cells 2 (0-4) /hpf Urine Bacteria Few H (None) /hpf Urine Mucus Rare H (None) /hpf Urine HCG, Qual Not Detected (Not Detectd) 08/10/24 08/10/24 Range/Units 22:05 22:05 WBC (4.50-10.00) 10*3/uL RBC (4.10-5.20) 10*6/uL Hgb (12.0-15.0) g/dL Hct (37.2-46.3) % MCV (80.0-97.0) fL MCH (27.0-32.0) pg MCHC (32.0-37.0) g/dL Plt Count (140-440) 10*3/uL MPV (9.5-12.2) fL Immature Gran % (Auto) % Neutrophils % % Lymphocytes % % Monocytes % % Eosinophils % % Basophils % % Immature Gran # (0.00-0.04) 10*3/uL Neutrophils # (1.80-7.70) 10*3/uL Lymphocytes # (0.90-5.00) 10*3/uL Monocytes # (0.20-1.00) 10*3/uL Eosinophils # (0.04-0.35) 10*3/uL Basophils # (0.00-0.10) 10*3/uL Sodium 136 L (137-145) mmol/L Potassium 4.1 (3.5-5.1) mmol/L Chloride 103 (98-107) mmol/L Carbon Dioxide 25 (22-30) mmol/L Anion Gap 8 mmol/L BUN 13 (7-17) mg/dL Creatinine 0.89 (0.52-1.04) mg/dL Est GFR (CKD-EPI)AfAm >90 (>60 ml/min/1.73 sqM) Est GFR (CKD-EPI)NonAf 87 (>60 ml/min/1.73 sqM) Glucose 100 H (74-99) mg/dL Plasma Lactic Acid Uri 0.9 (0.7-2.0) mmol/L Calcium 9.6 (8.4-10.2) mg/dL Total Bilirubin 0.4 (0.2-1.3) mg/dL AST 25 (14-36) U/L ALT 18 (4-34) U/L Alkaline Phosphatase 62 (38-126) U/L Total Protein 7.3 (6.3-8.2) g/dL Albumin 4.3 (3.5-5.0) g/dL Lipase 98 (23-300) U/L Urine Color Urine Appearance (Clear) Urine pH (5.0-8.0) Ur Specific [place] (1.001-1.035) Urine Protein (Negative) Urine Glucose (UA) (Negative) Urine Ketones (Negative) Urine Blood (Negative) Urine Nitrite (Negative) Urine Bilirubin (Negative) Urine Urobilinogen (<2.0) mg/dL Ur Leukocyte Esterase (Negative) Urine RBC (0-5) /hpf Urine WBC (0-5) /hpf Ur Squamous Epith Cells (0-4) /hpf Urine Bacteria (None) /hpf Urine Mucus (None) /hpf Urine HCG, Qual (Not Detectd) Disposition <Pete Preston - Last Filed: 08/10/24 23:56> Is patient prescribed a controlled substance at d/c from ED?: No Time of Disposition: 00:58 <Fifi Goldberg - Last Filed: 08/11/24 03:31> Clinical Impression: Abdominal pain Disposition: HOME SELF-CARE Condition: Good Instructions (If sedation given, give patient instructions): Abdominal Pain (ED) Additional Instructions: Follow-up with PCP. Report back to ER with any new or worsening symptoms. Referrals: Po Hernandez MD [Primary Care Provider] - 1-2 days
[2024-08-10 21:47] LABS: Appearance,Urine Clear (Clear); Bacteria,Urine Few /hpf; Bilirubin,Urine Negative (Negative); Blood,Urine Small (Negative); Color,Urine Light Yellow; Glucose,Urine (UA) Negative (Negative); Ketones,Urine Negative (Negative); Leukocyte Esterase,Urine Trace (Negative); Mucus,Urine Rare /hpf; Nitrite,Urine Negative (Negative); PH, Urine 5.5 (5.0-8.0); Protein,Urine Negative (Negative); RBC,Urine 6 /hpf (0-5); Specific Gravity,Urine 1.024 (1.001-1.035); Squamous Epithelial Cell,Urine 2 /hpf (0-4); Urobilinogen,Urine <2.0 mg/dL (<2.0); WBC,Urine 4 /hpf (0-5)
[2024-08-10] MEDS: METOCLOPRAMIDE 5 MG/ML 2 ML VIAL IM STA (21:55)
[2024-08-10 22:33] LABS: Basophils # (A) 0.07 10*3/uL (0.00-0.10); Basophils % (A) 0.7 %; HCT 38.3 % (37.2-46.3); HGB 13.4 g/dL (12.0-15.0); Lymphocytes # (A) 2.47 10*3/uL (0.90-5.00); Lymphocytes % (A) 24.5 %; MCH 30.5 pg (27.0-32.0); Monocytes # (A) 0.77 10*3/uL (0.20-1.00); Monocytes % (A) 7.6 %; Neutrophils # (A) 6.54 10*3/uL (1.80-7.70); Neutrophils % (A) 64.9 %; Platelet Count 315 10*3/uL (140-440); RDW 11.9 % (11.5-14.5); WBC 10.08 10*3/uL (4.50-10.00)
[2024-08-10 22:46] LABS: ALT 18 U/L (4-34); AST 25 U/L (14-36); African American GFR (CKD) >90 (>60 ml/min/1.73 sqM); Albumin 4.3 g/dL (3.5-5.0); Alkaline Phosphatase 62 U/L (38-126); Anion Gap 8 mmol/L; Blood Urea Nitrogen 13 mg/dL (7-17); Calcium 9.6 mg/dL (8.4-10.2); Carbon Dioxide 25 mmol/L (22-30); Chloride 103 mmol/L (98-107); Glucose 100 mg/dL (74-99); Lipase 98 U/L (23-300); Non-African American GFR(CKD) 87 (>60 ml/min/1.73 sqM); Potassium 4.1 mmol/L (3.5-5.1); Sodium 136 mmol/L (137-145); Total Bilirubin 0.4 mg/dL (0.2-1.3); Total Protein 7.3 g/dL (6.3-8.2)
--- NOTE | 2024-08-11 00:39 | CT ---
EXAM: CT Abdomen and Pelvis With Intravenous Contrast CLINICAL HISTORY: ITS.REASON CT Reason: Rapid distention/painless mass of lower abdomen TECHNIQUE: Axial computed tomography images of the abdomen and pelvis with intravenous contrast. CTDI is 16.1 mGy and DLP is 738.9 mGy-cm. This CT exam was performed using one or more of the following dose reduction techniques: automated exposure control, adjustment of the mA and/or kV according to patient size, and/or use of iterative reconstruction technique. COMPARISON: 07/02/2024 FINDINGS: Lung bases: Unremarkable. No mass. No consolidation. ABDOMEN: Liver: Unremarkable. No mass. Gallbladder and bile ducts: Unremarkable. No calcified stones. No ductal dilation. Pancreas: Unremarkable. No mass. No ductal dilation. Spleen: Unremarkable. No splenomegaly. Adrenals: Unremarkable. No mass. Kidneys and ureters: Both kidneys opacify with and excrete contrast in the a.m. and symmetric fashion. No hydronephrosis. Stomach and bowel: Moderate amount of stool within the colon. Diverticulosis without evidence of diverticulitis. No obstruction. PELVIS: Appendix: Normal-appearing appendix. Bladder: Unremarkable. No mass. Reproductive: Unremarkable as visualized. ABDOMEN and PELVIS: Intraperitoneal space: Unremarkable. No free air. No significant fluid collection. Bones/joints: No acute fracture. No dislocation. Soft tissues: Unremarkable. Vasculature: Unremarkable. No abdominal aortic aneurysm. Lymph nodes: Unremarkable. No enlarged lymph nodes. IMPRESSION: No acute findings in the abdomen or pelvis.
[2024-08-11 01:19] VITALS: BP 123/76; PULSE 80
== END 2024-08-11 01:19 | disposition home or self-care (01) ==
LOC: EC 21:00
DX: R10.84 Generalized abdominal pain (principal); Z98.51 Tubal ligation status; F17.290 Nicotine dependence, other tobacco product, uncomplicated; Z88.8 Allergy status to other drugs, medicaments and biological substances
CPT/HCPCS: 36415; 80053; 83605; 83690; 85025; 81001; 81025; 74177; 99284; 96372; J2765; Q9967

== ENCOUNTER 2024-09-18 21:37 | Emergency (ER) | payer OTHER ==
[2024-09-18 22:26] LABS: Appearance,Urine Clear (Clear); Bacteria,Urine Rare /hpf; Bilirubin,Urine Negative (Negative); Blood,Urine Moderate (Negative); Color,Urine Yellow; Glucose,Urine (UA) Negative (Negative); Ketones,Urine Negative (Negative); Leukocyte Esterase,Urine Negative (Negative); Mucus,Urine Few /hpf; Nitrite,Urine Negative (Negative); Protein,Urine Negative (Negative); RBC,Urine 3 /hpf (0-5); Specific Gravity,Urine 1.037 (1.001-1.035); Squamous Epithelial Cell,Urine 4 /hpf (0-4); Urobilinogen,Urine <2.0 mg/dL (<2.0); WBC,Urine 2 /hpf (0-5)
--- NOTE | 2024-09-18 22:55 | ED ---
Female Urogenital HPI - General Chief complaint: Urogenital Stated complaint: general pain Time Seen by Provider: 09/18/24 21:44 Source: patient Mode of arrival: ambulatory Limitations: no limitations - History of Present Illness Initial comments: 29-year-old female presents reporting dysuria and nausea. Patient is concern for sexually transmitted infections.. States that she was exposed to her boyfriend who may possibly have an STD. She denies hematuria or increased frequency of voiding. No vomiting. Denies any fevers. No concern for . Denies diarrhea, constipation, black or bloody stools. No other alleviating, precipitating or modifying factors Last Menstrual Period: 09/16/24 - Related Data Home Medications Medication Instructions Recorded Confirmed Dextroamphetamine/Amphetamine 30 mg PO BID@0900,1600 02/23/24 07/26/24 [Adderall] clonazePAM [KlonoPIN] 1 mg PO BID PRN 02/23/24 07/26/24 Ziprasidone [Geodon] 40 mg PO BID 03/06/24 07/26/24 Acetaminophen Tab [Tylenol] 1,000 mg PO Q6HR PRN 07/03/24 07/26/24 Ibuprofen [Motrin Ib] 400 mg PO Q6H PRN 07/03/24 07/26/24 Gabapentin [Neurontin] 300 mg PO BID 07/26/24 07/26/24 Previous Rx's Medication Instructions Recorded lamoTRIgine [LaMICtal] 100 mg PO BID #90 tab 03/17/24 Dicyclomine [Bentyl] 20 mg PO QID #40 tablet 04/19/24 Fludrocortisone [Florinef] 0.1 mg PO DAILY #30 tab 04/19/24 levETIRAcetam [Keppra] 1,500 mg PO BID #0 07/28/24 Doxycycline Hyclate 100 mg PO BID 7 Days #14 tab 09/18/24 Allergies Allergy/AdvReac Type Severity Reaction Status Date / Time pantoprazole [From Protonix] Allergy Rash/Hives/Abdominal Verified 09/18/24 21:39 pain trazodone Allergy Rash/Hives/Increased Verified 09/18/24 21:39 Heart Rate Review of Systems ROS Statement: Those systems with pertinent positive or pertinent negative responses have been documented in the HPI. ROS Other: All systems not noted in ROS Statement are negative. Past Medical History Past Medical History: Rheumatoid Arthritis (RA), Seizure Disorder Additional Past Medical History / Comment(s): Autonomic dysfunction. Lopez, crohns, bladder infection since 2-25 History of Any Multi-Drug Resistant Organisms: Other MDRO Date of last positivie culture/infection: 2023 MDRO Source:: kidney- E. Coli Past Surgical History: Tubal Ligation Additional Past Surgical History / Comment(s): left shoulder surgery in 2018 Past Psychological History: ADD/ADHD, Anxiety, Bipolar Smoking Status: Vaper Past Alcohol Use History: None Reported Past Drug Use History: Marijuana General Exam Limitations: no limitations General appearance: alert, in no apparent distress Head exam: Present: atraumatic, normocephalic, normal inspection Eye exam: Present: normal appearance, PERRL, EOMI. Absent: scleral icterus, conjunctival injection, periorbital swelling ENT exam: Present: normal exam, mucous membranes moist Neck exam: Present: normal inspection. Absent: tenderness, meningismus, lymphadenopathy Respiratory exam: Present: normal lung sounds bilaterally. Absent: respiratory distress, wheezes, rales, rhonchi, stridor Cardiovascular Exam: Present: regular rate, normal rhythm, normal heart sounds. Absent: systolic murmur, diastolic murmur, rubs, gallop, clicks GI/Abdominal exam: Present: soft, normal bowel sounds. Absent: distended, tenderness, guarding, rebound, rigid Extremities exam: Present: normal inspection, full ROM, normal capillary refill. Absent: tenderness, pedal edema, joint swelling, calf tenderness Back exam: Present: normal inspection Neurological exam: Present: alert, oriented X3, CN II-XII intact Psychiatric exam: Present: normal affect, normal mood Skin exam: Present: warm, dry, intact, normal color. Absent: rash Course Vital Signs 09/18/24 09/18/24 21:40 23:35 Temperature 97.7 F 97.8 F Pulse Rate 93 87 Respiratory 18 16 Rate Blood Pressure 144/98 112/77 O2 Sat by Pulse 100 99 Oximetry Medical Decision Making - Medical Decision Making Was pt. sent in by a medical professional or institution (, PA, FORGING DIE SINKER, urgent care, hospital, or skilled nursing...) When possible be specific @ -No Did you speak to anyone other than the patient for history (EMS, parent, family, police, friend...)? What history was obtained from this source @ -No Did you review nursing and triage notes (agree or disagree)? Why? @ -I reviewed and agree with nursing and triage notes Were old charts reviewed (outside hosp., previous admission, EMS record, old EKG, old radiological studies, urgent care reports/EKG's, skilled nursing records)? Report findings @ -No old charts were reviewed Differential Diagnosis (chest pain, altered mental status, abdominal pain women, abdominal pain men, vaginal bleeding, weakness, fever, dyspnea, syncope, headache, dizziness, GI bleed, back pain, seizure, CVA, palpatations, mental health, musculoskeletal)? @ -Urinary tract infection, pyelonephritis, chlamydia, gonorrhea EKG interpreted by me (3pts min.). @ -Not done X-rays interpreted by me (1pt min.). @ -None done CT interpreted by me (1pt min.). @ -None done U/S interpreted by me (1pt. min.). @ -None done What testing was considered but not performed or refused? (CT, X-rays, U/S, lab s)? Why? @ -None What meds were considered but not given or refused? Why? @ -None Did you discuss the management of the patient with other professionals (professionals i.e. , PA, FORGING DIE SINKER, lab, RT, psych nurse, social worker assistant, audio visual collections coordinator, teacher, occupational health and safety officer, manager of case)? Give summary @ -No Was smoking cessation discussed for >3mins.? @ -No Was critical care preformed (if so, how long)? @ -No Were there social determinants of health that impacted care today? How? (Homelessness, low income, unemployed, alcoholism, drug addiction, transportation, low edu. Level, literacy, decrease access to med. care, long term, rehab)? @ -No Was there de-escalation of care discussed even if they declined (Discuss DNR or withdrawal of care, Hospice)? DNR status @ -No What co-morbidities impacted this encounter? (DM, HTN, Smoking, COPD, CAD, Cancer, CVA, ARF, Chemo, Hep., AIDS, mental health diagnosis, sleep apnea, morbid obesity)? @ -None Was patient admitted / discharged? Hospital course, mention meds given and route, prescriptions, significant lab abnormalities, going to OR and other pertinent info. @ -Upon arrival patient seen and evaluated in room 33. Thorough history and physical was performed. Patient was provided urine sample. She was empirically treated for STIs. test is negative. She is instructed to follow-up with her doctor for further evaluation of her symptoms and return for any new or worsening symptoms. Abstain from intercourse until symptoms are resolved and antibiotics are discontinued Undiagnosed new problem with uncertain prognosis? @ -No Drug Therapy requiring intensive monitoring for toxicity (Heparin, Nitro, Insulin, Cardizem)? @ -No Were any procedures done? @ -No Diagnosis/symptom? @ -Acute dysuria, evaluation for STI Acute, or Chronic, or Acute on Chronic? @ -Acute Uncomplicated (without systemic symptoms) or Complicated (systemic symptoms)? @ -Complicated Side effects of treatment? @ -No Exacerbation, Progression, or Severe Exacerbation? @ -No Poses a threat to life or bodily function? How? (Chest pain, [place], [place], pneumonia, PE, COPD, DKA, ARF, appy, cholecystitis, CVA, Diverticulitis, Homicidal, Suicidal, threat to staff... and all critical care pts) @ -No - Lab Data Lab Results 09/18/24 09/18/24 09/18/24 Range/Units 22:14 22:14 22:14 Urine Color Yellow Urine Appearance Clear (Clear) Urine pH 7.0 (5.0-8.0) Ur Specific [place] 1.037 H (1.001-1.035) Urine Protein Negative (Negative) Urine Glucose (UA) Negative (Negative) Urine Ketones Negative (Negative) Urine Blood Moderate H (Negative) Urine Nitrite Negative (Negative) Urine Bilirubin Negative (Negative) Urine Urobilinogen <2.0 (<2.0) mg/dL Ur Leukocyte Esterase Negative (Negative) Urine RBC 3 (0-5) /hpf Urine WBC 2 (0-5) /hpf Ur Squamous Epith Cells 4 (0-4) /hpf Urine Bacteria Rare H (None) /hpf Urine Mucus Few H (None) /hpf Urine HCG, Qual Not Detected (Not Detectd) Chlamydia DNA (PCR) Negative (Negative) N.gonorrhoeae DNA Probe Negative (Negative) Disposition Clinical Impression: Dysuria Disposition: HOME SELF-CARE Condition: Stable Instructions (If sedation given, give patient instructions): Dysuria (ED) Additional Instructions: Download mychart to see your results. Take all of the antibiotics. Return for any new or worsening symptoms. Prescriptions: Doxycycline Hyclate 100 mg PO BID 7 Days #14 tab Is patient prescribed a controlled substance at d/c from ED?: No Referrals: Po Hernandez MD [Primary Care Provider] - 1-2 days Time of Disposition: 22:58
[2024-09-18] MEDS: cefTRIAXone 250 MG VIAL IM STA (23:29)
[2024-09-18] MEDS: DOXYCYCLINE 100 MG TABLET PO ONE (23:29)
[2024-09-18 23:38] VITALS: BP 112/77; PULSE 87; RESP 16; TEMP 97.8
[2024-09-21 14:12] LABS: C. trachomatis,PCR Negative (Negative)
[2024-09-22 12:34] LABS: N. gonorrhoeae,PCR Negative (Negative)
== END 2024-09-18 23:35 | disposition home or self-care (01) ==
LOC: EC 21:37
DX: R30.0 Dysuria (principal); F17.290 Nicotine dependence, other tobacco product, uncomplicated; Z88.8 Allergy status to other drugs, medicaments and biological substances
CPT/HCPCS: 81001; 81025; 87491; 87591; 99283; 96372; J0696